=== PATIENT | female | born 1930 | race Caucasian/White ===

== ENCOUNTER 2019-06-04 13:13 | Inpatient (IN) | payer MEDICARE ==
[~2019-06-04] VITALS: Ht 162.6 cm; Wt 73.4 kg
[~2019-06-04 13:13] MED LIST: ACET325T9 PO; ALBU2.5V5 NEB; ALBU2.5V8 INH; ATOR10TA60 PO; CEPH-264 PO; DIVA125C3 PO; IPRA3AMP29 NEB; IPRA4AER INH; LACT1CAP21 PO; MAG355OR17 PO; MAGN24003 PO; METH29OI TP; OLAN5TAB5 PO; PRAV20TA2 PO; TRIA1CAP3 PO
[2019-06-04] MEDS ORDERED: TORS20TA2 PO (13:55)
[2019-06-04] MEDS ORDERED: TIOT18CA IH (13:55)
[2019-06-04] MEDS ORDERED: LIDO1ADH TP (13:55)
[2019-06-04] MEDS ORDERED: POLY17PO5 PO (13:55)
[2019-06-04] MEDS ORDERED: PRAV20TA2 PO (13:55)
[2019-06-04] MEDS ORDERED: ACET500T68 PO (13:55)
[2019-06-04 16:50] VITALS: BP 137/81
[2019-06-04] MEDS ORDERED: NON FORMULARY ITEM (Ipratropium/Albuterol Sulfate (Combivent Respimat Inhal) 1 PUFF) INH PRN (17:00)
[2019-06-04] MEDS ORDERED: METHYL SALICYLATE/MENTHOL TOPICAL OINTMENT 57GM TUBE. TP PRN (17:00)
[2019-06-04] MEDS ORDERED: ALBUTEROL SULFATE 2.5 MG/3 ML NEBU. INH PRN ×2 (17:00→17:13)
[2019-06-04] MEDS ORDERED: MAGNESIUM HYDROXIDE 2,400 MG/30 ML ORAL.SUSP. PO PRN (17:00)
[2019-06-04 20:15] LABS: BASO # 0.1 x10^3/uL (0.0-0.2); BASO % 1 % (0-3); EOS # 0.6 x10^3/uL (0.0-0.7); EOS % 6 % (0-3); HEMATOCRIT 38.3 % (36.0-47.0); HEMOGLOBIN 12.9 g/dL (12.0-15.5); LYMPH # 2.1 x10^3/uL (1.0-4.8); LYMPH % 20 % (24-48); MEAN CORPUSCULAR HEMOGLOBIN 32 pg (25-35); MEAN CORPUSCULAR HGB CONC 34 g/dL (31-37); MEAN CORPUSCULAR VOLUME 95 fL (79-100); MONO # 1.1 x10^3/uL (0.0-1.1); MONO % 10 % (0-9); NEUT # 6.9 x10^3uL (1.8-7.7); NEUT % 64 % (31-73); PLATELET COUNT 429 x10^3/uL (140-400); RED BLOOD COUNT 4.05 x10^6/uL (3.50-5.40); WHITE BLOOD COUNT 10.7 x10^3/uL (4.0-11.0)
[2019-06-04] MEDS: DIVALPROEX 125 MG CAP.SPRINK PO SCH (20:21)
[2019-06-04] MEDS: ATORVASTATIN CALCIUM 10 MG TABLET. PO SCH (20:21)
[2019-06-04] MEDS: ACETAMINOPHEN 500 MG TABLET PO PRN (20:22)
[2019-06-04 20:28] LABS: ALBUMIN 2.3 g/dL (3.4-5.0); ALBUMIN/GLOBULIN RATIO 0.5 (1.0-1.7); CREATININE 1.3 mg/dL (0.6-1.0); GFR 38.6; MAGNESIUM 2.2 mg/dL (1.8-2.4); POTASSIUM 4.1 mmol/L (3.5-5.1); TOTAL BILIRUBIN 0.2 mg/dL (0.2-1.0); TOTAL PROTEIN 7.2 g/dL (6.4-8.2)
[2019-06-04] MEDS: PATCH REMOVAL. MC SCH (21:00)
[2019-06-04] MEDS: IPRATRPIUM/ALBUTEROL 0.5/2.5MG 3 ML NEBU. NEB SCH (21:16)
--- NOTE | 2019-06-04 21:30 | PDOC ---
Exam Note: Zachary Note: Please also refer to the separate dictated note~for this date of service dictated separately. Discussed the patient with Nursing staff reviewed the chart.~Reviewed interim history and current functioning. Reviewed vital signs,~Labs/ Radiology~and current medications noted below. Continue current treatment with the changes noted in the dictated addendum note Assessment: Vital Signs/I&O: Vital Signs Date Time Temp Pulse Resp B/P (MAP) Pulse Ox O2 Delivery O2 Flow Rate FiO2 06/04/19 21:14 92 Room Air 06/04/19 16:50 97.8 93 18 137/81 (99) Labs: Laboratory Tests Test 06/04/19 20:05 White Blood Count 10.7 x10^3/uL (4.0-11.0) Red Blood Count 4.05 x10^6/uL (3.50-5.40) Hemoglobin 12.9 g/dL (12.0-15.5) Hematocrit 38.3 % (36.0-47.0) Mean Corpuscular Volume 95 fL (79-100) Mean Corpuscular Hemoglobin 32 pg (25-35) Mean Corpuscular Hemoglobin Concent 34 g/dL (31-37) Red Cell Distribution Width 14.0 % (11.5-14.5) Platelet Count 429 x10^3/uL (140-400) H Neutrophils (%) (Auto) 64 % (31-73) Lymphocytes (%) (Auto) 20 % (24-48) L Monocytes (%) (Auto) 10 % (0-9) H Eosinophils (%) (Auto) 6 % (0-3) H Basophils (%) (Auto) 1 % (0-3) Neutrophils # (Auto) 6.9 x10^3uL (1.8-7.7) Lymphocytes # (Auto) 2.1 x10^3/uL (1.0-4.8) Monocytes # (Auto) 1.1 x10^3/uL (0.0-1.1) Eosinophils # (Auto) 0.6 x10^3/uL (0.0-0.7) Basophils # (Auto) 0.1 x10^3/uL (0.0-0.2) Sodium Level 139 mmol/L (136-145) Potassium Level 4.1 mmol/L (3.5-5.1) Chloride Level 99 mmol/L (98-107) Carbon Dioxide Level 31 mmol/L (21-32) Anion Gap 9 (6-14) Blood Urea Nitrogen 45 mg/dL (7-20) H Creatinine 1.3 mg/dL (0.6-1.0) H Estimated GFR (Cockcroft-Gault) 38.6 BUN/Creatinine Ratio 35 (6-20) H Glucose Level 140 mg/dL (70-99) H Calcium Level 9.0 mg/dL (8.5-10.1) Magnesium Level 2.2 mg/dL (1.8-2.4) Total Bilirubin 0.2 mg/dL (0.2-1.0) Aspartate Amino Transferase (AST) 25 U/L (15-37) Alanine Aminotransferase (ALT) 29 U/L (14-59) Alkaline Phosphatase 119 U/L (46-116) H Total Protein 7.2 g/dL (6.4-8.2) Albumin 2.3 g/dL (3.4-5.0) L Albumin/Globulin Ratio 0.5 (1.0-1.7) L Current Medications: Meds: Current Medications Medications (Trade) Dose Ordered Sig/Daisy Route PRN Reason Start Time Stop Time Status Last Admin Dose Admin Acetaminophen (Tylenol) 500 mg PRN Q6HRS PRN PO MILD PAIN / TEMP 06/04/19 17:00 06/04/19 20:22 Divalproex Sodium (Depakote Sprinkles) 125 mg BID PO 06/04/19 21:00 06/04/19 20:21 Olanzapine (ZyPREXA ZYDIS) 5 mg HS PO 06/04/19 21:00 06/04/19 20:22 Atorvastatin Calcium (Lipitor) 5 mg QHS PO 06/04/19 21:00 06/04/19 20:21 Albuterol/ Ipratropium (Duoneb) 3 ml RTQID NEB 06/04/19 20:00 06/04/19 21:16 I have reviewed the current psychotropics carefully including drug interactions. Risk benefit ratio favors no change other than as noted in my dictated progress note. Diagnosis: Problems: (1) Bipolar 1 disorder, mixed, moderate (2) Anxiety disorder (3) Impulse control disorder ANDREA COY MD Jun 04, 2019 21:30
--- NOTE | 2019-06-04 23:42 | HP ---
ADMIT DATE: 06/04/2019 PSYCHIATRIC ADMISSION HISTORY AND EVALUATION IDENTIFYING DATA: The patient is an 89-year-old female referred to us from [facility] inpatient service [place] their [place] by her primary care physician, Dr. Stephany Perez and the hospitalist at [facility]. She had been living at home with her , was getting more agitated, paranoid that her was poisoning her. She was aggressive towards staff at the hospital while she was being medically stabilized. Behaviors were deemed dangerous, unmanageable. Psychiatric consult was completed at [facility], recommending inpatient psychiatric stabilization. CHIEF COMPLAINT: "I was here 14 years ago. I came here to heal everyone. The last time I came here, I healed everyone, that is my job, I like doing it." The patient was quite grandiose, paranoid, delusional. HISTORY OF PRESENT ILLNESS: The patient has a history of bipolar disorder with periods of elation, racing thoughts alternating with being depressed and marked psychotic symptoms even while she is stable with her mood swings. Recently, she has been increasingly paranoid living at home with her , agitated, believes her has been trying to poison her. She has had sleep and appetite changes. No active suicidal or homicidal ideation. She has had some short-term memory deficits. PAST PSYCHIATRIC HISTORY: Positive for bipolar disorder versus schizoaffective disorder, bipolar type, mild cognitive impairment. PAST MEDICAL HISTORY: Positive for hyperlipidemia, hypertension. PAST SURGICAL HISTORY: Total abdominal hysterectomy. CODE STATUS: Full code. ALLERGIES: BUDESONIDE, NOVOCAIN, PREDNISONE, SULFA. DIET: Pureed thin liquids. Takes medications whole. CURRENT PSYCHOTROPICS: Depakote 125 b.i.d., Zyprexa 5 mg at bedtime. FAMILY HISTORY: Noncontributory. SOCIAL HISTORY: No history of alcohol, drug abuse; physical, sexual or elder abuse. She is not known to be a perpetrator. REACTION TO HOSPITALIZATION: The patient accepting of it. ESTIMATED LENGTH OF STAY: 10-12 days. REVIEW OF SYSTEMS: Ambulation impaired. No CV, , pulmonary, eye system symptoms on review. MENTAL STATUS EXAMINATION: Oriented to herself and situation. She knew it was 06/04/2019, that the president was President Abbe, fairly oriented. Extremely delusional, hyperverbal at times. Attention span short. Language function intact. Mood and affect remains labile. LABORATORY DATA: Reviewed. IMPRESSION: Bipolar disorder, mixed with psychotic features versus schizoaffective disorder, bipolar type, mixed with psychotic features; anxiety disorder, unspecified; impulse control disorder, unspecified. Rest as above. PLAN: Admit to Geropsychiatry Unit, [facility]. I will see the patient daily individually from a psychiatric standpoint. Medical followup per Dr. Abdi. Continue the patient on Depakote 125 b.i.d. Check labs and a valproic acid level, adjust to reach therapeutic level. Continue Zyprexa 5 mg at bedtime. We will make further adjustments in her psychotropics post baseline assessment. Estimated length of stay 10-12 days. DISPOSITION PLANS: Back home with her when stable. MAN Carlos COY MD DR: ODALIS/cheyenne JOB#: [id number] / [id number]
[2019-06-05 05:15] VITALS: BP 147/101
[2019-06-05] MEDS: IPRATRPIUM/ALBUTEROL 0.5/2.5MG 3 ML NEBU. NEB SCH ×4 (08:00→23:29)
[2019-06-05] MEDS ORDERED: NON FORMULARY ITEM (Pravastatin Sodium 20 MG) PO SCH (09:00)
[2019-06-05] MEDS: POLYETHYLENE GLYCOL 3350 17 GM PACKET. PO SCH (09:00)
[2019-06-05] MEDS: LACTOBACILLUS RHAMNOSUS GG 1 CAPSULE. PO SCH (09:00)
[2019-06-05] MEDS: TORSEMIDE 20 MG TABLET. PO SCH (09:00)
[2019-06-05] MEDS ORDERED: NON FORMULARY ITEM (Tiotropium Bromide (Spiriva) 18 MCG) IH SCH (09:00)
[2019-06-05] MEDS: DIVALPROEX 125 MG CAP.SPRINK PO SCH ×2 (09:00→20:06)
[2019-06-05 12:07] LABS: THYROXINE 9.4 ug/dL (4.5-12.0)
[2019-06-05 12:52] LABS: BACTERIA,URINE MOD /HPF (0-FEW); BILIRUBIN,URINE NEG (NEG); CLARITY,URINE TURBID; COLOR,URINE YELLOW; GLUCOSE,URINE NEG (NEG); NITRITE,URINE POS (NEG); UROBILINOGEN,URINE 0.2 mg/dL (0.2 mg/dL); WBC,URINE TNTC /HPF (0-4)
[2019-06-05 14:37] LABS: THYROID STIM HORMONE (TSH) 1.397 uIU/mL (0.358-3.740)
[2019-06-05 16:28] VITALS: BP 132/79
[2019-06-05] MEDS: PATCH REMOVAL. MC SCH (20:06)
[2019-06-05] MEDS: ATORVASTATIN CALCIUM 10 MG TABLET. PO SCH (20:06)
--- NOTE | 2019-06-05 21:33 | PN ---
DATE: 06/05/2019 SUBJECTIVE: The patient was seen today, met with the staff, chart reviewed and also covering for Dr. Schofield. The patient continues to be delusional, paranoid, accusing her of poisoning her. The patient is withdrawn most of the time, tends to isolate herself, does not interact with the residents or staff. The patient also tends to be aggressive with the staff at times. OBSERVATION: VITAL SIGNS: Temperature 97.3, blood pressure 147/101, pulse 84, respirations 24, O2 sat 93%. GENERAL: Slept about 6 hours last night. The patient's appetite is fair. MEDICATIONS: The patient's medications reviewed and she is currently on olanzapine 5 mg at night, Depakote 125 mg b.i.d. The patient is not having any side effects to medications. The patient's appetite is fair. LABORATORY DATA: The patient's lab reviewed. The patient's platelet count was 429, BUN 45, creatinine 1.3, glucose 140, alkaline phosphatase 119. The patient is not having any other medical issues. ASSESSMENT: Bipolar disorder, mixed, with psychotic features; anxiety disorder, unspecified; impulse control disorder, unspecified. PLAN: Continue with the current treatment plan. LENGTH OF STAY: 7 days. GONSALO CANNON MD DR: REGINALD/cheyenne JOB#: [id number] / [id number]
[2019-06-06 00:07] LABS: HEMOGLOBIN A1C 5.7 % (4.8-5.6)
[2019-06-06 05:26] VITALS: BP 124/72
--- NOTE | 2019-06-06 05:54 | CONS ---
DATE OF CONSULTATION: 06/05/2019 REASON FOR CONSULTATION: Medical management. HISTORY OF PRESENT ILLNESS: The patient is an 89-year-old female patient lives at home with her , was seen at [facility] and was admitted to this facility for increased agitation, paranoid that is poisoning her. She is aggressive toward her spouse. She stated that she is getting soon to Usman Stafford and her name is Mary Stafford, all this in a background of bipolar disorder. PAST MEDICAL HISTORY: Significant for hypertension and hyperlipidemia. PAST SURGICAL HISTORY: Significant for total abdominal hysterectomy and squamous cell carcinoma removal. PAST PSYCHIATRIC HISTORY: Significant for bipolar disorder and dementia. ALLERGIES: SHE IS ALLERGIC TO SULFA, PULMICORT, PREDNISONE AND PROCAINE. MEDICATIONS: She is currently on following medications: She is on Combivent, Respimat inhaler 1 puff every 6 hours, tiotropium bromide for Spiriva HandiHaler 1 inhalation once a day, albuterol sulfate 1 puff 4 times a day, pravastatin sodium 20 mg daily, acetaminophen 500 mg every 6 hours, divalproex 125 mg twice a day, olanzapine 5 mg at bedtime, torsemide 20 mg daily, polyethylene glycol 17 grams daily, lactobacillus rhamnosus 1 capsule once a day, Lidopatch 1 patch applied topically daily p.r.n. for pain. FAMILY HISTORY: Unobtainable. SOCIAL HISTORY: She apparently lives with her . No further information available. PHYSICAL EXAMINATION: GENERAL: When I saw her, she was sitting comfortably in her chair, in no apparent respiratory distress. She was pale. No jaundice, cyanosis or thyromegaly. No jugular venous distention. No limb edema. VITAL SIGNS: Her heart rate was 84, blood pressure was 147/101, temperature was 97.3, respiratory rate was 22 and oxygen saturation was 93% on room air. HEAD, EYES, EARS, NOSE AND THROAT: Showed normocephalic, atraumatic. NECK: Supple. CARDIAC: Normal first and second heart sounds. No gallop or murmur. CHEST: Clear to auscultation. No crepitation or rhonchi. ABDOMEN: Distended, soft. NEUROLOGIC: She is demented without any obvious lateralizing signs. All her cranial nerves intact. EXTREMITIES: She moves extremities without difficulty, although she is mostly bedbound, chair bound. LABORATORY DATA: As of this morning showed her white cell count was 10,700, hemoglobin 13, hematocrit 38, MCV 95, and platelet count of 429,000 with normal manual differential. Serum sodium was 139, potassium 4.1, chloride 99, bicarbonate 31, anion gap of 9, BUN 45, creatinine 1.3, estimated GFR was 39 mL per minute. Her glucose 140, her calcium was 9, magnesium 2.2. Serum iron 44, TIBC was 232 and iron saturation was 19, serum bilirubin, AST, ALT were normal. Alkaline phosphatase slightly elevated. Total protein was 7.2, albumin 2.3. Serum triglycerides 125. Total cholesterol 145, LDL was 88, VLDL was 25, and HDL cholesterol was 32. The cholesterol to HDL ratio was 4. Her TSH, total T4, and total T3 are all within normal range. Her urinalysis showed the urine was yellow, turbid with a pH of 5.5, specific gravity 1.020. There was trace of protein, negative for glucose and ketones, small amount of blood, positive for nitrite and there was large amount of leukocyte esterase, 1-2 rbc's, too numerous to count wbc's and moderate amount of bacteria. ASSESSMENT AND PLAN: All in all, this is an 89-year-old female patient who was admitted on account of being agitated, paranoid that her is poisoning her, aggressive towards her spouse. Medically, she seemed to be stable. She has hypertension, hyperlipidemia, chronic kidney disease and probably UTI. Her vital signs seem to be stable. Her lab works are also within acceptable range. My plan is to follow all the lab work, still pending at the time of this dictation and make any necessary recommendation. Thank you, Dr. Schofield for allowing me to participate in the care of this patient. KAYE ROBLES MD DR: LIANA/cheyenne JOB#: [id number] / [id number]
[2019-06-06] MEDS: IPRATRPIUM/ALBUTEROL 0.5/2.5MG 3 ML NEBU. NEB SCH ×4 (06:20→23:00)
[2019-06-06] MEDS: POLYETHYLENE GLYCOL 3350 17 GM PACKET. PO SCH (09:48)
[2019-06-06] MEDS: LACTOBACILLUS RHAMNOSUS GG 1 CAPSULE. PO SCH (09:48)
[2019-06-06] MEDS: DIVALPROEX 125 MG CAP.SPRINK PO SCH ×2 (09:48→19:56)
[2019-06-06] MEDS: TORSEMIDE 20 MG TABLET. PO SCH (09:48)
[2019-06-06 15:38] VITALS: BP 122/76
[2019-06-06 16:26] LABS: HEMATOCRIT 38.6 % (36.0-47.0); HEMOGLOBIN 12.6 g/dL (12.0-15.5); RED BLOOD COUNT 4.04 x10^6/uL (3.50-5.40); RED CELL DISTRIBUTION WIDTH 13.8 % (11.5-14.5); WHITE BLOOD COUNT 8.8 x10^3/uL (4.0-11.0)
[2019-06-06 16:34] LABS: CALCIUM 8.5 mg/dL (8.5-10.1); CREATININE 1.4 mg/dL (0.6-1.0); GFR 35.4; POTASSIUM 3.8 mmol/L (3.5-5.1)
[2019-06-06 16:46] LABS: ALBUMIN 2.3 g/dL (3.4-5.0); ALBUMIN/GLOBULIN RATIO 0.5 (1.0-1.7); TOTAL BILIRUBIN 0.2 mg/dL (0.2-1.0); TOTAL PROTEIN 6.8 g/dL (6.4-8.2)
--- NOTE | 2019-06-06 17:28 | RAD ---
CHEST AP ONLY History: Worsening shortness of breath Comparison: None. Findings: No consolidation or pleural effusion. Normal heart size. No pneumothorax. Impression: 1. No acute cardiopulmonary process. Electronically signed by: David Dozier DO (06/06/2019 5:24 PM) [id number]
[2019-06-06] MEDS: ATORVASTATIN CALCIUM 10 MG TABLET. PO SCH (19:56)
[2019-06-06] MEDS: MAG HYDROX/AL HYDROX/SIMETH 30 ML ORAL.SUSP PO PRN (19:57)
[2019-06-06] MEDS: PATCH REMOVAL. MC SCH (20:53)
--- NOTE | 2019-06-06 23:19 | PN ---
DATE: 06/06/2019 SUBJECTIVE: The patient was seen today, met with the staff, chart reviewed and also covering for Dr. Schofield. The patient is still delusional, paranoid. The patient claims that she is Usman flynn. 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 OBSERVATION: VITAL SIGNS: Temperature 97.9, blood pressure 124/72, pulse 82, respirations 18, O2 sat 90%. GENERAL: Slept about 7 hours last night. The patient is not having any physical complaints. CURRENT MEDICATIONS: Include olanzapine 5 mg at night, Depakote 125 mg b.i.d. The patient denies of any side effects. The patient's appetite improved. The patient is not having any physical complaints. ASSESSMENT: 1. Bipolar disorder, mixed, with psychotic features. 2. Anxiety disorder, unspecified. 3. Impulse control disorder, unspecified. PLAN: To continue with the treatment. LENGTH OF STAY: 7 days. GONSALO CANNON MD DR: REGINALD/cheyenne JOB#: [id number] / [id number]
[2019-06-07 05:59] VITALS: BP 112/68
[2019-06-07] MEDS: IPRATRPIUM/ALBUTEROL 0.5/2.5MG 3 ML NEBU. NEB SCH ×3 (06:10→16:39)
--- NOTE | 2019-06-07 06:41 | EKG ---
[address] [address] Test Date: 2019-06-04 Test Time: 21:13:59 Pat Name: WHITNEY EDWARDS Department: Room: [address] [place] [address] Gender: Child And Youth Program Assistant: : 1930 Requested By: ANDREA COY Order Number: [id number] Reading MD: Brock Parish Measurements Intervals [place] Rate: P: GA: QRS: QRSD: T: QT: QTc: Interpretive Statements No previous ECG available for comparison Electronically Signed On 06-21-2019 9:25:40 CDT by Brock Parish
[2019-06-07] MEDS: LACTOBACILLUS RHAMNOSUS GG 1 CAPSULE. PO SCH (08:42)
[2019-06-07] MEDS: DIVALPROEX 125 MG CAP.SPRINK PO SCH ×2 (08:43→20:39)
[2019-06-07] MEDS: POLYETHYLENE GLYCOL 3350 17 GM PACKET. PO SCH (08:43)
[2019-06-07] MEDS: TORSEMIDE 20 MG TABLET. PO SCH (08:43)
[2019-06-07 16:36] VITALS: BP 118/58
[2019-06-07] MEDS: ACETAMINOPHEN 500 MG TABLET PO PRN (17:04)
[2019-06-07] MEDS: PATCH REMOVAL. MC SCH (20:39)
[2019-06-07] MEDS: ATORVASTATIN CALCIUM 10 MG TABLET. PO SCH (20:39)
--- NOTE | 2019-06-07 21:53 | PDOC ---
Exam Note: Zachary Note: Please also refer to the separate dictated note~for this date of service dictated separately.~Patient seen individually. Discussed the patient with Nursing staff reviewed the chart.~Reviewed interim history and current functioning. Reviewed vital signs,~Labs/ Radiology~and current medications noted below. Continue current treatment with the changes noted in the dictated addendum note Assessment: Vital Signs/I&O: Vital Signs Date Time Temp Pulse Resp B/P (MAP) Pulse Ox O2 Delivery O2 Flow Rate FiO2 06/07/19 20:50 92 Room Air 06/07/19 16:36 98.3 90 16 118/58 (78) I & O 06/06/19 06/06/19 06/07/19 15:00 23:00 07:00 Intake Total 120 ml 240 ml 120 ml Balance 120 ml 240 ml 120 ml Current Medications: I have reviewed the current psychotropics carefully including drug interactions. Risk benefit ratio favors no change other than as noted in my dictated progress note. Diagnosis: Problems: (1) Bipolar 1 disorder, mixed, moderate (2) Anxiety disorder (3) Impulse control disorder (4) Schizoaffective disorder, bipolar type ANDREA COY MD Jun 07, 2019 21:53
[2019-06-08] MEDS: ACETAMINOPHEN 500 MG TABLET PO PRN ×2 (00:49→20:23)
[2019-06-08] MEDS: IPRATRPIUM/ALBUTEROL 0.5/2.5MG 3 ML NEBU. NEB SCH ×5 (03:39→21:28)
[2019-06-08 05:51] VITALS: BP 102/62
[2019-06-08 06:31] LABS: BASO % 1 % (0-3); EOS # 0.8 x10^3/uL (0.0-0.7); EOS % 10 % (0-3); HEMATOCRIT 32.8 % (36.0-47.0); HEMOGLOBIN 10.8 g/dL (12.0-15.5); LYMPH # 2.2 x10^3/uL (1.0-4.8); LYMPH % 27 % (24-48); MEAN CORPUSCULAR HEMOGLOBIN 31 pg (25-35); MEAN CORPUSCULAR HGB CONC 33 g/dL (31-37); MEAN CORPUSCULAR VOLUME 94 fL (79-100); MONO # 0.9 x10^3/uL (0.0-1.1); MONO % 11 % (0-9); NEUT # 4.2 x10^3uL (1.8-7.7); NEUT % 52 % (31-73); PLATELET COUNT 378 x10^3/uL (140-400); RED BLOOD COUNT 3.48 x10^6/uL (3.50-5.40); RED CELL DISTRIBUTION WIDTH 14.3 % (11.5-14.5); WHITE BLOOD COUNT 8.1 x10^3/uL (4.0-11.0)
[2019-06-08 06:44] LABS: ALBUMIN/GLOBULIN RATIO 0.5 (1.0-1.7); ALK PHOS 86 U/L (46-116); ALT (SGPT) 21 U/L (14-59); ANION GAP 6 (6-14); AST (SGOT) 18 U/L (15-37); BLOOD UREA NITROGEN 45 mg/dL (7-20); BUN/CREATININE RATIO 32 (6-20); CALCIUM 8.3 mg/dL (8.5-10.1); CARBON DIOXIDE 33 mmol/L (21-32); CHLORIDE 102 mmol/L (98-107); CREATININE 1.4 mg/dL (0.6-1.0); GFR 35.4; GLUCOSE 91 mg/dL (70-99); POTASSIUM 3.5 mmol/L (3.5-5.1); SODIUM 141 mmol/L (136-145); TOTAL BILIRUBIN 0.2 mg/dL (0.2-1.0); TOTAL PROTEIN 5.8 g/dL (6.4-8.2)
[2019-06-08 06:46] LABS: VAL ACID 31 mcg/mL (50-100)
[2019-06-08] MEDS: POLYETHYLENE GLYCOL 3350 17 GM PACKET. PO SCH (11:45)
[2019-06-08] MEDS: LACTOBACILLUS RHAMNOSUS GG 1 CAPSULE. PO SCH (11:46)
[2019-06-08] MEDS: TORSEMIDE 20 MG TABLET. PO SCH (11:46)
[2019-06-08] MEDS: DIVALPROEX 125 MG CAP.SPRINK PO SCH ×2 (11:46→19:59)
[2019-06-08] MEDS: MAG HYDROX/AL HYDROX/SIMETH 30 ML ORAL.SUSP PO PRN (11:57)
[2019-06-08] MEDS: CEPHALEXIN 250 MG CAPSULE PO SCH ×2 (15:17→19:59)
[2019-06-08 16:02] VITALS: BP 109/60
[2019-06-08] MEDS: ATORVASTATIN CALCIUM 10 MG TABLET. PO SCH (19:59)
[2019-06-08] MEDS: PATCH REMOVAL. MC SCH (20:00)
--- NOTE | 2019-06-08 21:45 | PDOC ---
Exam Note: Zachary Note: Please also refer to the separate dictated note~for this date of service dictated separately.~Patient seen individually. Discussed the patient with Nursing staff reviewed the chart.~Reviewed interim history and current functioning. Reviewed vital signs,~Labs/ Radiology~and current medications noted below. Continue current treatment with the changes noted in the dictated addendum note Assessment: Vital Signs/I&O: Vital Signs Date Time Temp Pulse Resp B/P (MAP) Pulse Ox O2 Delivery O2 Flow Rate FiO2 06/08/19 21:29 92 Room Air 06/08/19 16:02 97.8 79 16 109/60 (76) I & O 06/07/19 06/07/19 06/08/19 15:00 23:00 07:00 Intake Total 720 ml 340 ml Balance 720 ml 340 ml Labs: Laboratory Tests Test 06/08/19 05:56 White Blood Count 8.1 x10^3/uL (4.0-11.0) Red Blood Count 3.48 x10^6/uL (3.50-5.40) L Hemoglobin 10.8 g/dL (12.0-15.5) L Hematocrit 32.8 % (36.0-47.0) L Mean Corpuscular Volume 94 fL (79-100) Mean Corpuscular Hemoglobin 31 pg (25-35) Mean Corpuscular Hemoglobin Concent 33 g/dL (31-37) Red Cell Distribution Width 14.3 % (11.5-14.5) Platelet Count 378 x10^3/uL (140-400) Neutrophils (%) (Auto) 52 % (31-73) Lymphocytes (%) (Auto) 27 % (24-48) Monocytes (%) (Auto) 11 % (0-9) H Eosinophils (%) (Auto) 10 % (0-3) H Basophils (%) (Auto) 1 % (0-3) Neutrophils # (Auto) 4.2 x10^3uL (1.8-7.7) Lymphocytes # (Auto) 2.2 x10^3/uL (1.0-4.8) Monocytes # (Auto) 0.9 x10^3/uL (0.0-1.1) Eosinophils # (Auto) 0.8 x10^3/uL (0.0-0.7) H Basophils # (Auto) 0.0 x10^3/uL (0.0-0.2) Sodium Level 141 mmol/L (136-145) Potassium Level 3.5 mmol/L (3.5-5.1) Chloride Level 102 mmol/L (98-107) Carbon Dioxide Level 33 mmol/L (21-32) H Anion Gap 6 (6-14) Blood Urea Nitrogen 45 mg/dL (7-20) H Creatinine 1.4 mg/dL (0.6-1.0) H Estimated GFR (Cockcroft-Gault) 35.4 BUN/Creatinine Ratio 32 (6-20) H Glucose Level 91 mg/dL (70-99) Calcium Level 8.3 mg/dL (8.5-10.1) L Total Bilirubin 0.2 mg/dL (0.2-1.0) Aspartate Amino Transferase (AST) 18 U/L (15-37) Alanine Aminotransferase (ALT) 21 U/L (14-59) Alkaline Phosphatase 86 U/L (46-116) Total Protein 5.8 g/dL (6.4-8.2) L Albumin 2.0 g/dL (3.4-5.0) L Albumin/Globulin Ratio 0.5 (1.0-1.7) L Valproic Acid Level 31 mcg/mL (50-100) L Valproic Acid Last Dose Date 06/07/2019 Valproic Acid Last Dose Time 2100 Current Medications: Meds: Current Medications Medications (Trade) Dose Ordered Sig/Daisy Route PRN Reason Start Time Stop Time Status Last Admin Dose Admin Cephalexin HCl (Keflex) 250 mg TID PO 06/08/19 14:00 06/13/19 13:59 06/08/19 19:59 Divalproex Sodium (Depakote Sprinkles) 250 mg BID PO 06/08/19 21:00 06/08/19 19:59 I have reviewed the current psychotropics carefully including drug interactions. Risk benefit ratio favors no change other than as noted in my dictated progress note. Diagnosis: Problems: (1) Schizoaffective disorder, bipolar type (2) Bipolar 1 disorder, mixed, moderate (3) Anxiety disorder (4) Impulse control disorder ANDREA COY MD Jun 08, 2019 21:45
[2019-06-09] MEDS: IPRATRPIUM/ALBUTEROL 0.5/2.5MG 3 ML NEBU. NEB SCH ×4 (04:56→20:41)
[2019-06-09] MEDS: ACETAMINOPHEN 500 MG TABLET PO PRN ×2 (05:48→19:50)
[2019-06-09 05:52] VITALS: BP 111/63
--- NOTE | 2019-06-09 09:30 | PN ---
DATE: 06/07/2019 This late entry 06/07/2019 covers elements not covered in my initial note. SUBJECTIVE: I met with the patient evening of 06/07/2019. Overall, per nursing report, the patient remains quite psychotic, delusional. She believes she is engaged to be to Usman Santoro, the football player with the [employer] football team. She has been anxious, restless, refuses to keep her arm band in place. She is restless. We will check her labs including valproic acid level repeat morning of 06/08/2019, but the current valproic acid level is 31, subtherapeutic, on Depakote 125 b.i.d. REVIEW OF SYSTEMS: Ambulation impaired, no CV, , pulmonary, eye system symptoms on review. MENTAL STATUS EXAM: Oriented to herself and situation. Speech is coherent, has some latency. Abstraction fair, computation impaired, language function intact, attention span short. Mood and affect remains labile. LABORATORY DATA: Reviewed. IMPRESSION: Bipolar disorder, mixed with psychotic features. Rest unchanged, mild cognitive impairment. PLAN: Increase the Depakote to 250 mg twice a day. Check CBC, CMP, valproic acid level, ammonia level in 3 days. Await results of the urine culture and sensitivity treat if positive, continue rest of her psychotropics unchanged. I have reviewed information with Dr. Quinones, who covered for me over the past couple of days. MAN Carlos COY MD DR: ODALIS/cheyenne JOB#: [id number] / [id number]
[2019-06-09] MEDS: CEPHALEXIN 250 MG CAPSULE PO SCH ×3 (11:10→19:50)
[2019-06-09] MEDS: TORSEMIDE 20 MG TABLET. PO SCH (11:10)
[2019-06-09] MEDS: DIVALPROEX 125 MG CAP.SPRINK PO SCH ×2 (11:10→19:50)
[2019-06-09] MEDS: LACTOBACILLUS RHAMNOSUS GG 1 CAPSULE. PO SCH (11:10)
[2019-06-09] MEDS: POLYETHYLENE GLYCOL 3350 17 GM PACKET. PO SCH (11:10)
[2019-06-09 16:38] VITALS: BP 129/81
[2019-06-09] MEDS: ATORVASTATIN CALCIUM 10 MG TABLET. PO SCH (19:50)
--- NOTE | 2019-06-09 19:53 | PN ---
DATE: 06/08/2019 PSYCHIATRIC PROGRESS NOTE This late entry 06/08/2019 covers elements not covered in my initial note. SUBJECTIVE: I met with the patient evening of 06/08/2019. Per STACIE العراقي, the patient slept 4-3/4 hours previous night. She does have a UTI, started on Keflex for 5 days. She seems to hate pureed food. Gets agitated, complains of some nausea. Valproic acid level is 31 on Depakote 125 b.i.d. and we will increase it to 250 b.i.d. Check CBC, CMP, valproic acid level, ammonia level in 3 days with a plan to reach a level between 50 and 100. REVIEW OF SYSTEMS: Ambulation impaired, in wheelchair. No CV, , pulmonary, eye system symptoms on review, does complain of some tiredness. MENTAL STATUS EXAM: Oriented to herself and situation. Speech has some latency, coherent. Abstraction fair, computation impaired, language function intact, attention span short. Mood and affect withdrawn. LABORATORY DATA: Reviewed. IMPRESSION: Unchanged from initial note. PLAN: No change from initial note. MAN Carlos COY MD DR: ODALIS/cheyenne JOB#: [id number] / [id number]
[2019-06-09] MEDS: PATCH REMOVAL. MC SCH (19:54)
--- NOTE | 2019-06-09 22:06 | PDOC ---
Exam Note: Zachary Note: Please also refer to the separate dictated note~for this date of service dictated separately.~Patient seen individually. Discussed the patient with Nursing staff reviewed the chart.~Reviewed interim history and current functioning. Reviewed vital signs,~Labs/ Radiology~and current medications noted below. Continue current treatment with the changes noted in the dictated addendum note Assessment: Vital Signs/I&O: Vital Signs Date Time Temp Pulse Resp B/P (MAP) Pulse Ox O2 Delivery O2 Flow Rate FiO2 06/09/19 16:38 98.3 88 20 129/81 (97) 93 06/09/19 15:59 Room Air I & O 06/08/19 06/08/19 06/09/19 15:00 23:00 07:00 Intake Total 480 ml 360 ml Balance 480 ml 360 ml Current Medications: I have reviewed the current psychotropics carefully including drug interactions. Risk benefit ratio favors no change other than as noted in my dictated progress note. Diagnosis: Problems: (1) Schizoaffective disorder, bipolar type (2) Bipolar 1 disorder, mixed, moderate (3) Anxiety disorder (4) Impulse control disorder ANDREA COY MD Jun 09, 2019 22:06
[2019-06-10] MEDS: IPRATRPIUM/ALBUTEROL 0.5/2.5MG 3 ML NEBU. NEB SCH ×4 (05:01→21:14)
[2019-06-10 05:53] VITALS: BP 106/63
[2019-06-10] MEDS: CEPHALEXIN 250 MG CAPSULE PO SCH ×3 (08:57→19:50)
[2019-06-10] MEDS: POLYETHYLENE GLYCOL 3350 17 GM PACKET. PO SCH (08:57)
[2019-06-10] MEDS: TORSEMIDE 20 MG TABLET. PO SCH (08:57)
[2019-06-10] MEDS: DIVALPROEX 125 MG CAP.SPRINK PO SCH ×2 (08:57→19:51)
[2019-06-10] MEDS: LACTOBACILLUS RHAMNOSUS GG 1 CAPSULE. PO SCH (08:57)
[2019-06-10] MEDS: MAG HYDROX/AL HYDROX/SIMETH 30 ML ORAL.SUSP PO PRN (09:16)
[2019-06-10] MEDS: ACETAMINOPHEN 500 MG TABLET PO PRN ×2 (09:16→19:51)
[2019-06-10 16:02] VITALS: BP 121/76
[2019-06-10] MEDS ORDERED: ONDANSETRON ODT 4 MG TAB.RAPDIS PO PRN (18:15)
[2019-06-10] MEDS: ATORVASTATIN CALCIUM 10 MG TABLET. PO SCH (19:51)
[2019-06-10] MEDS: PATCH REMOVAL. MC SCH (19:51)
[2019-06-10] MEDS: risperiDONE 0.5 MG TABLET. PO SCH (21:00)
--- NOTE | 2019-06-10 23:04 | PDOC ---
Exam Note: Zachary Note: Please also refer to the separate dictated note~for this date of service dictated separately.~Patient seen individually. Discussed the patient with Nursing staff reviewed the chart.~Reviewed interim history and current functioning. Reviewed vital signs,~Labs/ Radiology~and current medications noted below. Continue current treatment with the changes noted in the dictated addendum note Assessment: Vital Signs/I&O: Vital Signs Date Time Temp Pulse Resp B/P (MAP) Pulse Ox O2 Delivery O2 Flow Rate FiO2 06/10/19 16:09 92 Room Air 06/10/19 16:02 98.7 82 18 121/76 (91) I & O 06/09/19 06/09/19 06/10/19 15:00 23:00 07:00 Intake Total 240 ml 600 ml Balance 240 ml 600 ml Current Medications: I have reviewed the current psychotropics carefully including drug interactions. Risk benefit ratio favors no change other than as noted in my dictated progress note. Diagnosis: Problems: (1) Schizoaffective disorder, bipolar type (2) Bipolar 1 disorder, mixed, moderate (3) Anxiety disorder (4) Impulse control disorder ANDREA COY MD Jun 10, 2019 23:04
[2019-06-11] MEDS: IPRATRPIUM/ALBUTEROL 0.5/2.5MG 3 ML NEBU. NEB SCH ×5 (04:59→22:45)
[2019-06-11 06:27] VITALS: BP 128/75
[2019-06-11] MEDS: LACTOBACILLUS RHAMNOSUS GG 1 CAPSULE. PO SCH (08:13)
[2019-06-11] MEDS: TORSEMIDE 20 MG TABLET. PO SCH (08:13)
[2019-06-11] MEDS: CEPHALEXIN 250 MG CAPSULE PO SCH ×3 (08:13→21:06)
[2019-06-11] MEDS: DIVALPROEX 125 MG CAP.SPRINK PO SCH ×2 (08:13→21:06)
[2019-06-11] MEDS: POLYETHYLENE GLYCOL 3350 17 GM PACKET. PO SCH (08:13)
[2019-06-11] MEDS: ACETAMINOPHEN 500 MG TABLET PO PRN ×3 (08:44→22:35)
--- NOTE | 2019-06-11 10:42 | PN ---
DATE: 06/10/2019 This late entry 06/10/2019 covers elements not covered in my initial note. SUBJECTIVE: I met with the patient in evening of 06/10/2019 and staffed at a treatment team meeting with the entire team in the morning. The patient's , Dequan attended the treatment team meeting. Per STACIE العراقي, the patient is sleeping 6 hours average, slept 8 hours previous night. Appetite is 50%. She complains of some GI symptoms. She remains somewhat delusional at times. She states she was at [facility], which is accurate and that she has been playing football. REVIEW OF SYSTEMS: Ambulation impaired in wheelchair. No CV, , pulmonary, eye system symptoms on review. MENTAL STATUS EXAM: Oriented to herself and situation. Speech has some latency, coherent, often responses monosyllabic. Abstraction fair, computation impaired, language function intact. Mood and affect withdrawn. LABORATORY DATA: Reviewed. IMPRESSION: Bipolar disorder, mixed with psychotic features; anxiety disorder, unspecified; mild cognitive impairment. Rest unchanged. PLAN: We will go ahead and change the Zyprexa 5 mg at bedtime to Risperdal 0.5 mg at bedtime. Maintain Depakote 250 mg b.i.d. Repeat labs and valproic acid level, adjust to reach therapeutic level. At times, she remains intermittently psychotic. As I met with her in the evening, talking about not being , having no children that her legs are broken because she was playing football and the Usman Esmer, the football player was going to heal her legs. Change the Zyprexa to Risperdal. Make further changes as clinically indicated. Continue Depakote. MAN Carlos COY MD DR: ODALIS/cheyenne JOB#: [id number] / [id number]
--- NOTE | 2019-06-11 10:55 | PN ---
DATE: 06/09/2019 PSYCHIATRIC PROGRESS NOTE This late entry 06/09/2019 covers elements not covered in my initial note. SUBJECTIVE: I met with the patient evening of 06/09/2019. Per STACIE العراقي, the patient has had some episodes of crying. She has been attending groups, remains delusional, paranoid, believes people are making forcing her to drink gasoline at breakfast, but she has not been delusional about a relationship with the football player, Claudia Barr. She slept 5-1/2 hours previous night. REVIEW OF SYSTEMS: Ambulation impaired, in wheelchair. No CV, , pulmonary, eye system symptoms on review. MENTAL STATUS EXAM: Oriented to herself and situation. Speech is coherent, has some latency. Abstraction fair, computation impaired, language function intact, attention span short. Mood and affect somewhat withdrawn. LABORATORY DATA: Reviewed. IMPRESSION: Unchanged from initial note. PLAN: No change from initial note. ANDREA COY MD DR: ODALIS/cheyenne JOB#: [id number] / [id number]
[2019-06-11 16:34] VITALS: BP 123/80
[2019-06-11] MEDS: PATCH REMOVAL. MC SCH (21:00)
[2019-06-11] MEDS: risperiDONE 0.5 MG TABLET. PO SCH (21:07)
[2019-06-11] MEDS: ATORVASTATIN CALCIUM 10 MG TABLET. PO SCH (21:07)
--- NOTE | 2019-06-11 23:01 | PDOC ---
Exam Note: Zachary Note: Please also refer to the separate dictated note~for this date of service dictated separately. Discussed the patient with Nursing staff reviewed the chart.~Reviewed interim history and current functioning. Reviewed vital signs,~Labs/ Radiology~and current medications noted below. Continue current treatment with the changes noted in the dictated addendum note Assessment: Vital Signs/I&O: Vital Signs Date Time Temp Pulse Resp B/P (MAP) Pulse Ox O2 Delivery O2 Flow Rate FiO2 06/11/19 16:34 95 Room Air 06/11/19 16:34 97.7 81 18 123/80 (94) I & O 06/10/19 06/10/19 06/11/19 15:00 23:00 07:00 Intake Total 870 ml 840 ml Balance 870 ml 840 ml Current Medications: I have reviewed the current psychotropics carefully including drug interactions. Risk benefit ratio favors no change other than as noted in my dictated progress note. Diagnosis: Problems: (1) Schizoaffective disorder, bipolar type (2) Bipolar 1 disorder, mixed, moderate (3) Anxiety disorder (4) Impulse control disorder ANDREA COY MD Jun 11, 2019 23:01
[2019-06-12 06:56] VITALS: BP 120/68
[2019-06-12] MEDS: IPRATRPIUM/ALBUTEROL 0.5/2.5MG 3 ML NEBU. NEB SCH ×4 (08:00→20:13)
[2019-06-12] MEDS: LACTOBACILLUS RHAMNOSUS GG 1 CAPSULE. PO SCH (09:34)
[2019-06-12] MEDS: CEPHALEXIN 250 MG CAPSULE PO SCH ×3 (09:35→20:14)
[2019-06-12] MEDS: POLYETHYLENE GLYCOL 3350 17 GM PACKET. PO SCH (09:35)
[2019-06-12] MEDS: TORSEMIDE 20 MG TABLET. PO SCH (09:35)
[2019-06-12] MEDS: DIVALPROEX 125 MG CAP.SPRINK PO SCH ×2 (09:35→20:14)
[2019-06-12 10:36] LABS: BASO % 1 % (0-3); EOS # 0.6 x10^3/uL (0.0-0.7); EOS % 9 % (0-3); HEMATOCRIT 37.4 % (36.0-47.0); HEMOGLOBIN 12.3 g/dL (12.0-15.5); LYMPH # 1.2 x10^3/uL (1.0-4.8); LYMPH % 17 % (24-48); MEAN CORPUSCULAR HEMOGLOBIN 32 pg (25-35); MEAN CORPUSCULAR HGB CONC 33 g/dL (31-37); MEAN CORPUSCULAR VOLUME 96 fL (79-100); MONO # 0.5 x10^3/uL (0.0-1.1); MONO % 8 % (0-9); NEUT # 4.3 x10^3uL (1.8-7.7); NEUT % 65 % (31-73); PLATELET COUNT 308 x10^3/uL (140-400); RED BLOOD COUNT 3.89 x10^6/uL (3.50-5.40); RED CELL DISTRIBUTION WIDTH 14.1 % (11.5-14.5); WHITE BLOOD COUNT 6.7 x10^3/uL (4.0-11.0)
[2019-06-12 10:51] LABS: ALBUMIN 2.2 g/dL (3.4-5.0); ALBUMIN/GLOBULIN RATIO 0.5 (1.0-1.7); ALK PHOS 88 U/L (46-116); ALT (SGPT) 16 U/L (14-59); ANION GAP 4 (6-14); AST (SGOT) 16 U/L (15-37); BLOOD UREA NITROGEN 30 mg/dL (7-20); BUN/CREATININE RATIO 21 (6-20); CALCIUM 8.2 mg/dL (8.5-10.1); CARBON DIOXIDE 35 mmol/L (21-32); CHLORIDE 102 mmol/L (98-107); CREATININE 1.4 mg/dL (0.6-1.0); GFR 35.4; GLUCOSE 111 mg/dL (70-99); POTASSIUM 3.3 mmol/L (3.5-5.1); SODIUM 141 mmol/L (136-145); TOTAL BILIRUBIN 0.2 mg/dL (0.2-1.0); TOTAL PROTEIN 6.3 g/dL (6.4-8.2); VAL ACID 44 mcg/mL (50-100)
[2019-06-12] MEDS ORDERED: POTASSIUM CHLORIDE 20 MEQ TABLET.ER. PO ONE (11:30)
[2019-06-12 16:08] VITALS: BP 116/76
[2019-06-12] MEDS: risperiDONE 0.5 MG TABLET. PO SCH (20:14)
[2019-06-12] MEDS: ATORVASTATIN CALCIUM 10 MG TABLET. PO SCH (20:15)
[2019-06-12] MEDS: HYDROcodone/APAP 5/325MG 1 TAB TABLET PO PRN (20:15)
[2019-06-12] MEDS: PATCH REMOVAL. MC SCH (20:19)
--- NOTE | 2019-06-12 22:44 | PDOC ---
Exam Note: Zachary Note: Please also refer to the separate dictated note~for this date of service dictated separately. Discussed the patient with Nursing staff reviewed the chart.~Reviewed interim history and current functioning. Reviewed vital signs,~Labs/ Radiology~and current medications noted below. Continue current treatment with the changes noted in the dictated addendum note Assessment: Vital Signs/I&O: Vital Signs Date Time Temp Pulse Resp B/P (MAP) Pulse Ox O2 Delivery O2 Flow Rate FiO2 06/12/19 16:08 98.3 82 18 116/76 (89) 92 06/11/19 16:34 Room Air I & O 06/11/19 06/11/19 06/12/19 15:00 23:00 07:00 Intake Total 1200 ml 240 ml 120 ml Balance 1200 ml 240 ml 120 ml Labs: Laboratory Tests Test 06/12/19 10:10 White Blood Count 6.7 x10^3/uL (4.0-11.0) Red Blood Count 3.89 x10^6/uL (3.50-5.40) Hemoglobin 12.3 g/dL (12.0-15.5) Hematocrit 37.4 % (36.0-47.0) Mean Corpuscular Volume 96 fL (79-100) Mean Corpuscular Hemoglobin 32 pg (25-35) Mean Corpuscular Hemoglobin Concent 33 g/dL (31-37) Red Cell Distribution Width 14.1 % (11.5-14.5) Platelet Count 308 x10^3/uL (140-400) Neutrophils (%) (Auto) 65 % (31-73) Lymphocytes (%) (Auto) 17 % (24-48) L Monocytes (%) (Auto) 8 % (0-9) Eosinophils (%) (Auto) 9 % (0-3) H Basophils (%) (Auto) 1 % (0-3) Neutrophils # (Auto) 4.3 x10^3uL (1.8-7.7) Lymphocytes # (Auto) 1.2 x10^3/uL (1.0-4.8) Monocytes # (Auto) 0.5 x10^3/uL (0.0-1.1) Eosinophils # (Auto) 0.6 x10^3/uL (0.0-0.7) Basophils # (Auto) 0.0 x10^3/uL (0.0-0.2) Sodium Level 141 mmol/L (136-145) Potassium Level 3.3 mmol/L (3.5-5.1) L Chloride Level 102 mmol/L (98-107) Carbon Dioxide Level 35 mmol/L (21-32) H Anion Gap 4 (6-14) L Blood Urea Nitrogen 30 mg/dL (7-20) H Creatinine 1.4 mg/dL (0.6-1.0) H Estimated GFR (Cockcroft-Gault) 35.4 BUN/Creatinine Ratio 21 (6-20) H Glucose Level 111 mg/dL (70-99) H Calcium Level 8.2 mg/dL (8.5-10.1) L Total Bilirubin 0.2 mg/dL (0.2-1.0) Aspartate Amino Transferase (AST) 16 U/L (15-37) Alanine Aminotransferase (ALT) 16 U/L (14-59) Alkaline Phosphatase 88 U/L (46-116) Ammonia < 10 mcmol/L (11-34) L Total Protein 6.3 g/dL (6.4-8.2) L Albumin 2.2 g/dL (3.4-5.0) L Albumin/Globulin Ratio 0.5 (1.0-1.7) L Valproic Acid Level 44 mcg/mL (50-100) L Valproic Acid Last Dose Date 06/11/19 Valproic Acid Last Dose Time 2100 Current Medications: Meds: Current Medications Medications (Trade) Dose Ordered Sig/Daisy Route PRN Reason Start Time Stop Time Status Last Admin Dose Admin Potassium Chloride (Klor-Con) 40 meq 1X ONCE PO 06/12/19 11:30 06/12/19 11:31 DC 06/12/19 14:32 Acetaminophen/ Hydrocodone Bitart (Lortab 5/325) 1 tab PRN Q6HRS PRN PO PAIN 06/12/19 16:00 06/12/19 20:15 Divalproex Sodium (Depakote Sprinkles) 500 mg HS PO 06/12/19 21:00 06/12/19 20:14 I have reviewed the current psychotropics carefully including drug interactions. Risk benefit ratio favors no change other than as noted in my dictated progress note. Diagnosis: Problems: (1) Schizoaffective disorder, bipolar type (2) Bipolar 1 disorder, mixed, moderate (3) Anxiety disorder (4) Impulse control disorder ANDREA COY MD Jun 12, 2019 22:44
[2019-06-13 06:13] VITALS: BP 111/55
[2019-06-13] MEDS: POLYETHYLENE GLYCOL 3350 17 GM PACKET. PO SCH (09:00)
[2019-06-13] MEDS: CEPHALEXIN 250 MG CAPSULE PO SCH (11:07)
[2019-06-13] MEDS: LACTOBACILLUS RHAMNOSUS GG 1 CAPSULE. PO SCH ×2 (11:07→20:22)
[2019-06-13] MEDS: TORSEMIDE 20 MG TABLET. PO SCH (11:07)
[2019-06-13] MEDS: IPRATRPIUM/ALBUTEROL 0.5/2.5MG 3 ML NEBU. NEB SCH ×4 (11:08→20:20)
[2019-06-13] MEDS: DIVALPROEX 125 MG CAP.SPRINK PO SCH ×2 (11:08→20:21)
[2019-06-13 16:33] VITALS: BP 113/75
[2019-06-13] MEDS: ATORVASTATIN CALCIUM 10 MG TABLET. PO SCH (20:21)
[2019-06-13] MEDS: risperiDONE 0.5 MG TABLET. PO SCH (20:22)
[2019-06-13] MEDS: HYDROcodone/APAP 5/325MG 1 TAB TABLET PO PRN (20:22)
[2019-06-13] MEDS: PATCH REMOVAL. MC SCH (20:24)
--- NOTE | 2019-06-13 21:49 | PDOC ---
Exam Note: Zachary Note: Please also refer to the separate dictated note~for this date of service dictated separately. Discussed the patient with Nursing staff reviewed the chart.~Reviewed interim history and current functioning. Reviewed vital signs,~Labs/ Radiology~and current medications noted below. Continue current treatment with the changes noted in the dictated addendum note Assessment: Vital Signs/I&O: Vital Signs Date Time Temp Pulse Resp B/P (MAP) Pulse Ox O2 Delivery O2 Flow Rate FiO2 06/13/19 16:33 98.7 82 18 113/75 (88) 98 Room Air I & O 06/12/19 06/12/19 06/13/19 15:00 23:00 07:00 Intake Total 480 ml 780 ml Balance 480 ml 780 ml Current Medications: Meds: Current Medications Medications (Trade) Dose Ordered Sig/Daisy Route PRN Reason Start Time Stop Time Status Last Admin Dose Admin Divalproex Sodium (Depakote Sprinkles) 250 mg DAILY PO 06/13/19 09:00 06/13/19 11:08 I have reviewed the current psychotropics carefully including drug interactions. Risk benefit ratio favors no change other than as noted in my dictated progress note. Diagnosis: Problems: (1) Schizoaffective disorder, bipolar type (2) Bipolar 1 disorder, mixed, moderate (3) Anxiety disorder (4) Impulse control disorder ANDREA COY MD Jun 13, 2019 21:49
[2019-06-14 06:14] VITALS: BP 114/65
[2019-06-14] MEDS: IPRATRPIUM/ALBUTEROL 0.5/2.5MG 3 ML NEBU. NEB SCH ×4 (09:51→20:33)
[2019-06-14] MEDS: POLYETHYLENE GLYCOL 3350 17 GM PACKET. PO SCH (09:51)
[2019-06-14] MEDS: DIVALPROEX 125 MG CAP.SPRINK PO SCH ×2 (09:52→20:29)
[2019-06-14] MEDS: ACETAMINOPHEN 500 MG TABLET PO PRN (09:52)
[2019-06-14] MEDS: TORSEMIDE 20 MG TABLET. PO SCH (09:52)
--- NOTE | 2019-06-14 14:07 | PN ---
DATE: 06/12/2019 PSYCHIATRIC PROGRESS NOTE This late entry 06/12/2019 covers the elements not covered in my initial note. SUBJECTIVE: Per Magad RN, the patient slept 7 hours previous night. She continues to be paranoid, suspicious. Denies she is . Denies she has any children. Still gets somewhat psychotic, believes she is going to the football player, Usman Moulton. Valproic acid level is 44, on Depakote 250 b.i.d. and we will increase to 250 a.m., 500 at bedtime. Check CBC, CMP, valproic acid level in 3 days. REVIEW OF SYSTEMS: Ambulation up with one or two assists. No CV, , pulmonary, eye system symptoms on review. She is oriented to herself. Insight, judgment, recent memory is impaired. Mood and affect labile. LABORATORY DATA: Reviewed. IMPRESSION: Unchanged from initial note. PLAN: No change from initial note other than what is noted above. ANDREA COY MD DR: ODALIS/cheyenne JOB#: [id number] / [id number]
[2019-06-14] MEDS ORDERED: POTASSIUM CHLORIDE 20 MEQ TABLET.ER. PO ONE (15:45)
[2019-06-14 16:23] VITALS: BP 121/74
[2019-06-14] MEDS: risperiDONE 0.5 MG TABLET. PO SCH (20:28)
[2019-06-14] MEDS: ATORVASTATIN CALCIUM 10 MG TABLET. PO SCH (20:29)
[2019-06-14] MEDS: PATCH REMOVAL. MC SCH (20:33)
[2019-06-14] MEDS: HYDROcodone/APAP 5/325MG 1 TAB TABLET PO PRN (20:34)
--- NOTE | 2019-06-14 21:54 | PDOC ---
Exam Note: Zachary Note: Please also refer to the separate dictated note~for this date of service dictated separately. Discussed the patient with Nursing staff reviewed the chart.~Reviewed interim history and current functioning. Reviewed vital signs,~Labs/ Radiology~and current medications noted below. Continue current treatment with the changes noted in the dictated addendum note Assessment: Vital Signs/I&O: Vital Signs Date Time Temp Pulse Resp B/P (MAP) Pulse Ox O2 Delivery O2 Flow Rate FiO2 06/14/19 20:34 Room Air 06/14/19 16:23 98.0 97 18 121/74 (90) 92 I & O 06/13/19 06/13/19 06/14/19 15:00 23:00 07:00 Intake Total 480 ml 480 ml Balance 480 ml 480 ml Current Medications: Meds: Current Medications Medications (Trade) Dose Ordered Sig/Daisy Route PRN Reason Start Time Stop Time Status Last Admin Dose Admin Potassium Chloride (Klor-Con) 40 meq 1X ONCE PO 06/14/19 15:45 06/14/19 15:46 DC 06/14/19 17:06 I have reviewed the current psychotropics carefully including drug interactions. Risk benefit ratio favors no change other than as noted in my dictated progress note. Diagnosis: Problems: (1) Schizoaffective disorder, bipolar type (2) Bipolar 1 disorder, mixed, moderate (3) Anxiety disorder (4) Impulse control disorder ANDREA COY MD Jun 14, 2019 21:54
[2019-06-15 05:49] VITALS: BP 108/67
[2019-06-15 06:23] LABS: BASO # 0.1 x10^3/uL (0.0-0.2); BASO % 1 % (0-3); EOS # 0.6 x10^3/uL (0.0-0.7); EOS % 8 % (0-3); HEMATOCRIT 31.6 % (36.0-47.0); HEMOGLOBIN 10.4 g/dL (12.0-15.5); LYMPH # 2.5 x10^3/uL (1.0-4.8); LYMPH % 35 % (24-48); MEAN CORPUSCULAR HEMOGLOBIN 31 pg (25-35); MEAN CORPUSCULAR HGB CONC 33 g/dL (31-37); MEAN CORPUSCULAR VOLUME 95 fL (79-100); MONO # 0.9 x10^3/uL (0.0-1.1); MONO % 13 % (0-9); NEUT # 3.1 x10^3uL (1.8-7.7); NEUT % 43 % (31-73); PLATELET COUNT 212 x10^3/uL (140-400); RED BLOOD COUNT 3.31 x10^6/uL (3.50-5.40); RED CELL DISTRIBUTION WIDTH 14.6 % (11.5-14.5); WHITE BLOOD COUNT 7.2 x10^3/uL (4.0-11.0)
[2019-06-15 06:34] LABS: ALBUMIN 1.8 g/dL (3.4-5.0); ALBUMIN/GLOBULIN RATIO 0.5 (1.0-1.7); ALK PHOS 67 U/L (46-116); ALT (SGPT) 14 U/L (14-59); ANION GAP 4 (6-14); AST (SGOT) 14 U/L (15-37); BLOOD UREA NITROGEN 25 mg/dL (7-20); BUN/CREATININE RATIO 21 (6-20); CALCIUM 8.1 mg/dL (8.5-10.1); CARBON DIOXIDE 34 mmol/L (21-32); CHLORIDE 107 mmol/L (98-107); CREATININE 1.2 mg/dL (0.6-1.0); GFR 42.3; GLUCOSE 76 mg/dL (70-99); SODIUM 145 mmol/L (136-145); TOTAL BILIRUBIN 0.2 mg/dL (0.2-1.0); TOTAL PROTEIN 5.1 g/dL (6.4-8.2)
[2019-06-15 06:38] LABS: VAL ACID 56 mcg/mL (50-100)
[2019-06-15] MEDS: LACTOBACILLUS RHAMNOSUS GG 1 CAPSULE. PO SCH (08:07)
[2019-06-15] MEDS: TORSEMIDE 20 MG TABLET. PO SCH (08:07)
[2019-06-15] MEDS: POLYETHYLENE GLYCOL 3350 17 GM PACKET. PO SCH (08:07)
[2019-06-15] MEDS: DIVALPROEX 125 MG CAP.SPRINK PO SCH ×2 (08:07→20:20)
[2019-06-15] MEDS: IPRATRPIUM/ALBUTEROL 0.5/2.5MG 3 ML NEBU. NEB SCH ×4 (11:18→20:19)
[2019-06-15 15:41] VITALS: BP 118/78
[2019-06-15] MEDS: ACETAMINOPHEN 500 MG TABLET PO PRN (16:15)
[2019-06-15] MEDS: risperiDONE 0.5 MG TABLET. PO SCH (20:20)
[2019-06-15] MEDS: ATORVASTATIN CALCIUM 10 MG TABLET. PO SCH (20:20)
[2019-06-15] MEDS: HYDROcodone/APAP 5/325MG 1 TAB TABLET PO PRN (20:24)
[2019-06-15] MEDS: PATCH REMOVAL. MC SCH (21:00)
[2019-06-16 06:03] VITALS: BP 116/80
--- NOTE | 2019-06-16 06:56 | PDOC ---
Exam Note: Zachary Note: This is a late entry for 06/11/2019. Currently, the unit is shutdown for any admissions and discharges as directed by the Centers for Disease Control (CDC) and the [facility] ([facility]) because of Coronavirus (COVID-19) exposure on the unit. S/O: This is a Telepsychiatry Progress Note. This note covers elements not covered in my initial note. The patient was reviewed with nursing staff, reviewed the chart and TeleHealth Services provided for this date for the patient. She slept 6-1/2 hours previous night. She has been less paranoid, delusional per nursing report. Her called and the patient was tearful but states she is not , has no children and she is here to help the kids who have broken legs. She states she has a broken leg herself playing football, remains delusional, and believes she is helping a football player Usman Lyman and his leg is healing. ROS: Positive for leg pain. Received Tylenol p.r.n. Ambulation impaired. No CV, , Pulmonary, Eye system symptoms on review. MSE: Oriented to herself, and situation. Speech is coherent, has some latency. Abstraction fair. Computation impaired. Language function intact. Attention span is short. Mood and affect withdrawn. Labs: Reviewed. 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 Anxiety disorder unspecified. Mild cognitive impairment. Plan: Continue psychotropics from initial note. Assessment: Vital Signs/I&O: Vital Signs Date Time Temp Pulse Resp B/P (MAP) Pulse Ox O2 Delivery O2 Flow Rate FiO2 06/16/19 06:03 99.3 94 18 116/80 (92) 90 06/15/19 21:30 Room Air I & O 06/15/19 06/15/19 06/16/19 15:00 23:00 07:00 Intake Total 240 ml 60 ml Balance 240 ml 60 ml Current Medications: I have reviewed the current psychotropics carefully including drug interactions. Risk benefit ratio favors no change other than as noted in my dictated progress note. Diagnosis: Problems: (1) Schizoaffective disorder, bipolar type (2) Bipolar 1 disorder, mixed, moderate (3) Anxiety disorder (4) Impulse control disorder ANDREA COY MD Jun 16, 2019 06:56
[2019-06-16 07:40] VITALS: BP 127/72
--- NOTE | 2019-06-16 07:59 | PDOC ---
Exam Note: Zachary Note: This is a late entry for 06/13/2019. Currently, the unit is shutdown for any admissions and discharges as directed by the Centers for Disease Control (CDC) and the [facility] ([facility]) because of Coronavirus (COVID-19) exposure on the unit. S/O: This note covers elements not covered in my initial note. The patient was reviewed with nursing staff, reviewed the chart and TeleHealth Services provided for this date for the patient. Discussed with STACIE Man. She slept 6-3/4 hours previous night. ROS: Ambulation impaired. No CV, , Pulmonary, Eye system symptoms on review. MSE: Oriented to herself, and situation. Speech is coherent, has some latency. Abstraction fair. Computation impaired. Language function intact. Attention span is short. Mood and affect withdrawn. Labs: Reviewed. 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 Anxiety disorder unspecified. Mild cognitive impairment. Plan: Continue psychotropics from initial note. Assessment: Vital Signs/I&O: Vital Signs Date Time Temp Pulse Resp B/P (MAP) Pulse Ox O2 Delivery O2 Flow Rate FiO2 06/16/19 06:03 99.3 94 18 116/80 (92) 90 06/15/19 21:30 Room Air I & O 06/15/19 06/15/19 06/16/19 15:00 23:00 07:00 Intake Total 240 ml 60 ml Balance 240 ml 60 ml Current Medications: I have reviewed the current psychotropics carefully including drug interactions. Risk benefit ratio favors no change other than as noted in my dictated progress note. Diagnosis: Problems: (1) Schizoaffective disorder, bipolar type (2) Bipolar 1 disorder, mixed, moderate (3) Anxiety disorder (4) Impulse control disorder ANDREA COY MD Jun 16, 2019 07:59
[2019-06-16] MEDS: IPRATRPIUM/ALBUTEROL 0.5/2.5MG 3 ML NEBU. NEB SCH ×4 (08:00→20:59)
[2019-06-16 08:15] LABS: BASO # 0.1 x10^3/uL (0.0-0.2); BASO % 1 % (0-3); EOS # 0.5 x10^3/uL (0.0-0.7); EOS % 5 % (0-3); HEMATOCRIT 35.3 % (36.0-47.0); HEMOGLOBIN 11.7 g/dL (12.0-15.5); LYMPH % 21 % (24-48); MEAN CORPUSCULAR HEMOGLOBIN 32 pg (25-35); MEAN CORPUSCULAR HGB CONC 33 g/dL (31-37); MEAN CORPUSCULAR VOLUME 96 fL (79-100); MONO # 0.7 x10^3/uL (0.0-1.1); MONO % 8 % (0-9); NEUT # 6.4 x10^3uL (1.8-7.7); NEUT % 66 % (31-73); PLATELET COUNT 210 x10^3/uL (140-400); RED BLOOD COUNT 3.68 x10^6/uL (3.50-5.40); WHITE BLOOD COUNT 9.7 x10^3/uL (4.0-11.0)
[2019-06-16 08:21] LABS: CALCIUM 8.3 mg/dL (8.5-10.1); CREATININE 1.4 mg/dL (0.6-1.0); GFR 35.4; POTASSIUM 4.5 mmol/L (3.5-5.1)
[2019-06-16 08:27] LABS: ALBUMIN 2.1 g/dL (3.4-5.0); ALBUMIN/GLOBULIN RATIO 0.5 (1.0-1.7); TOTAL BILIRUBIN 0.2 mg/dL (0.2-1.0); TOTAL PROTEIN 6.1 g/dL (6.4-8.2)
--- NOTE | 2019-06-16 08:28 | PDOC ---
Exam Note: Zachary Note: This is a late entry for 06/14/2019. Currently, the unit is shutdown for any admissions and discharges as directed by the Centers for Disease Control (CDC) and the [facility] ([facility]) because of Coronavirus (COVID-19) exposure on the unit. S/O: This note covers elements not covered in my initial note. The patient was reviewed with nursing staff, reviewed the chart and TeleHealth Services provided for this date for the patient. Discussed with STACIE Man. Her again called but she states she is not as before. ROS: Ambulation impaired. No CV, , Pulmonary, Eye system symptoms on review. MSE: Oriented to herself, and situation. Speech is coherent, has some latency. Abstraction fair. Computation impaired. Language function intact. Attention span is short. Mood and affect withdrawn. Labs: Reviewed. 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 Anxiety disorder unspecified. Mild cognitive impairment. Plan: Continue psychotropics from initial note. Assessment: Vital Signs/I&O: Vital Signs Date Time Temp Pulse Resp B/P (MAP) Pulse Ox O2 Delivery O2 Flow Rate FiO2 06/16/19 06:03 99.3 94 18 116/80 (92) 90 06/15/19 21:30 Room Air I & O 06/15/19 06/15/19 06/16/19 14:59 22:59 06:59 Intake Total 240 ml 60 ml Balance 240 ml 60 ml Labs: Laboratory Tests Test 06/16/19 08:00 White Blood Count 9.7 x10^3/uL (4.0-11.0) Red Blood Count 3.68 x10^6/uL (3.50-5.40) Hemoglobin 11.7 g/dL (12.0-15.5) L Hematocrit 35.3 % (36.0-47.0) L Mean Corpuscular Volume 96 fL (79-100) Mean Corpuscular Hemoglobin 32 pg (25-35) Mean Corpuscular Hemoglobin Concent 33 g/dL (31-37) Red Cell Distribution Width 15.0 % (11.5-14.5) H Platelet Count 210 x10^3/uL (140-400) Neutrophils (%) (Auto) 66 % (31-73) Lymphocytes (%) (Auto) 21 % (24-48) L Monocytes (%) (Auto) 8 % (0-9) Eosinophils (%) (Auto) 5 % (0-3) H Basophils (%) (Auto) 1 % (0-3) Neutrophils # (Auto) 6.4 x10^3uL (1.8-7.7) Lymphocytes # (Auto) 2.0 x10^3/uL (1.0-4.8) Monocytes # (Auto) 0.7 x10^3/uL (0.0-1.1) Eosinophils # (Auto) 0.5 x10^3/uL (0.0-0.7) Basophils # (Auto) 0.1 x10^3/uL (0.0-0.2) Platelet Estimate Pending Sodium Level 141 mmol/L (136-145) Potassium Level 4.5 mmol/L (3.5-5.1) Chloride Level 103 mmol/L (98-107) Carbon Dioxide Level 36 mmol/L (21-32) H Anion Gap 2 (6-14) L Blood Urea Nitrogen 22 mg/dL (7-20) H Creatinine 1.4 mg/dL (0.6-1.0) H Estimated GFR (Cockcroft-Gault) 35.4 BUN/Creatinine Ratio 16 (6-20) Glucose Level 93 mg/dL (70-99) Calcium Level 8.3 mg/dL (8.5-10.1) L Total Bilirubin Pending Aspartate Amino Transferase (AST) Pending Alanine Aminotransferase (ALT) Pending Alkaline Phosphatase Pending Total Protein Pending Albumin Pending Albumin/Globulin Ratio Pending Current Medications: I have reviewed the current psychotropics carefully including drug interactions. Risk benefit ratio favors no change other than as noted in my dictated progress note. Diagnosis: Problems: (1) Schizoaffective disorder, bipolar type (2) Bipolar 1 disorder, mixed, moderate (3) Anxiety disorder (4) Impulse control disorder ANDREA COY MD Jun 16, 2019 08:28
[2019-06-16 08:49] LABS: INFLUENZA A PATIENT NEGATIVE (NEGATIVE); INFLUENZA B PATIENT NEGATIVE (NEGATIVE)
--- NOTE | 2019-06-16 08:57 | PDOC ---
Exam Note: Zachary Note: This is a late entry for 06/15/2019. Currently, the unit is shutdown for any admissions and discharges as directed by the Centers for Disease Control (CDC) and the [facility] ([facility]) because of Coronavirus (COVID-19) exposure on the unit. S/O: This note covers elements not covered in my initial note. The patient was reviewed with nursing staff, reviewed the chart and TeleHealth Services provided for this date for the patient. She was seen on a video-conferencing call coordinated with Noah QUINONES, nursing staff on the unit whose appropriately protected with personal protective equipment and mask on the unit. Per STACIE Chun the patient is alert and oriented x4 but remains quite paranoid, delusional. She slept 7-1/2 hours, calm, pleasant, cooperative. Valproic acid level is 56. ROS: Ambulation impaired. No CV, , Pulmonary, Eye system symptoms on review. MSE: Oriented to herself, and situation. Speech is coherent, has some latency. Abstraction fair. Computation impaired. Language function intact. Attention span is short. Mood and affect withdrawn. Labs: Reviewed. 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 Anxiety disorder unspecified. Mild cognitive impairment. Plan: The patients Risperdal may need to be increased as she remains paranoid. If valproic acid level just turned therapeutic, then I will give it another 24 to 48 hours then decide. Assessment: Vital Signs/I&O: Vital Signs Date Time Temp Pulse Resp B/P (MAP) Pulse Ox O2 Delivery O2 Flow Rate FiO2 06/16/19 06:03 99.3 94 18 116/80 (92) 90 06/15/19 21:30 Room Air I & O 06/15/19 06/15/19 06/16/19 14:59 22:59 06:59 Intake Total 240 ml 60 ml Balance 240 ml 60 ml Labs: Laboratory Tests Test 06/16/19 08:00 White Blood Count 9.7 x10^3/uL (4.0-11.0) Red Blood Count 3.68 x10^6/uL (3.50-5.40) Hemoglobin 11.7 g/dL (12.0-15.5) L Hematocrit 35.3 % (36.0-47.0) L Mean Corpuscular Volume 96 fL (79-100) Mean Corpuscular Hemoglobin 32 pg (25-35) Mean Corpuscular Hemoglobin Concent 33 g/dL (31-37) Red Cell Distribution Width 15.0 % (11.5-14.5) H Platelet Count 210 x10^3/uL (140-400) Neutrophils (%) (Auto) 66 % (31-73) Lymphocytes (%) (Auto) 21 % (24-48) L Monocytes (%) (Auto) 8 % (0-9) Eosinophils (%) (Auto) 5 % (0-3) H Basophils (%) (Auto) 1 % (0-3) Neutrophils # (Auto) 6.4 x10^3uL (1.8-7.7) Lymphocytes # (Auto) 2.0 x10^3/uL (1.0-4.8) Monocytes # (Auto) 0.7 x10^3/uL (0.0-1.1) Eosinophils # (Auto) 0.5 x10^3/uL (0.0-0.7) Basophils # (Auto) 0.1 x10^3/uL (0.0-0.2) Platelet Estimate Pending Sodium Level 141 mmol/L (136-145) Potassium Level 4.5 mmol/L (3.5-5.1) Chloride Level 103 mmol/L (98-107) Carbon Dioxide Level 36 mmol/L (21-32) H Anion Gap 2 (6-14) L Blood Urea Nitrogen 22 mg/dL (7-20) H Creatinine 1.4 mg/dL (0.6-1.0) H Estimated GFR (Cockcroft-Gault) 35.4 BUN/Creatinine Ratio 16 (6-20) Glucose Level 93 mg/dL (70-99) Lactic Acid Level 1.1 mmol/L (0.4-2.0) Calcium Level 8.3 mg/dL (8.5-10.1) L Total Bilirubin 0.2 mg/dL (0.2-1.0) Aspartate Amino Transferase (AST) 14 U/L (15-37) L Alanine Aminotransferase (ALT) 15 U/L (14-59) Alkaline Phosphatase 79 U/L (46-116) Total Protein 6.1 g/dL (6.4-8.2) L Albumin 2.1 g/dL (3.4-5.0) L Albumin/Globulin Ratio 0.5 (1.0-1.7) L Influenza Type A (Rapid) Negative (NEGATIVE) Influenza Type B (Rapid) Negative (NEGATIVE) Group A Streptococcus Rapid Negative (NEGATIVE) Current Medications: I have reviewed the current psychotropics carefully including drug interactions. Risk benefit ratio favors no change other than as noted in my dictated progress note. Diagnosis: Problems: (1) Schizoaffective disorder, bipolar type (2) Bipolar 1 disorder, mixed, moderate (3) Anxiety disorder (4) Impulse control disorder ANDREA COY MD Jun 16, 2019 08:57
--- NOTE | 2019-06-16 09:21 | RAD ---
EXAM: CHEST 1 VIEW History: Low oxygen COMPARISON: 06/06/2019 TECHNIQUE: Single portable radiograph of the chest FINDINGS: The cardiac silhouette is unremarkable. The lungs are clear bilaterally. The costophrenic sulci are clear and well demarcated. IMPRESSION: No radiographic evidence of an acute cardiopulmonary process. Electronically signed by: Dereck Solis MD (06/16/2019 9:18 AM) [id number]
[2019-06-16] MEDS: DIVALPROEX 125 MG CAP.SPRINK PO SCH ×2 (10:13→20:59)
[2019-06-16] MEDS: POLYETHYLENE GLYCOL 3350 17 GM PACKET. PO SCH (10:13)
[2019-06-16] MEDS: LACTOBACILLUS RHAMNOSUS GG 1 CAPSULE. PO SCH (10:13)
[2019-06-16] MEDS: TORSEMIDE 20 MG TABLET. PO SCH ×2 (10:13→17:52)
[2019-06-16 13:10] LABS: % EOS 8 % (0-5); % LYMPHS 18 % (24-48); % MONOS 5 % (0-10); % SEGS 69 % (35-66)
[2019-06-16 13:11] LABS: PLT ESTIMATE ADEQUATE (ADEQUATE)
[2019-06-16 16:24] VITALS: BP 110/69
[2019-06-16] MEDS: risperiDONE 0.5 MG TABLET. PO SCH (20:58)
[2019-06-16] MEDS: PATCH REMOVAL. MC SCH (20:59)
[2019-06-16] MEDS: ATORVASTATIN CALCIUM 10 MG TABLET. PO SCH (20:59)
[2019-06-16] MEDS: HYDROcodone/APAP 5/325MG 1 TAB TABLET PO PRN (21:38)
--- NOTE | 2019-06-16 23:19 | PDOC ---
Exam Note: Zachary Note: S/O: This note covers elements not covered in my initial note. The patient was reviewed with nursing staff, reviewed the chart. Discussed with STACIE Chun. Patient slept 10 hours. She has had low-grade fever. O2 sats were low and chest x-ray has been done. We will defer to Dr. Abdi and may get a COVID-19 screen since the unit is on lockdown for a prior exposure to COVID-19. She does have her leg inflamed. ROS: Alert and oriented at times. Complains of being tired. Has short-term memory deficits. She is currently in isolation consequent to above. No CV, , Pulmonary, Eye system symptoms on review. MSE: Oriented reasonably. Speech is coherent, has some latency. Abstraction fair. Computation impaired. Language function intact. Mood and affect somewhat withdrawn. Labs: Reviewed. 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 Anxiety disorder unspeci fied. Mild cognitive impairment. Plan: No change from initial note. She will remain in isolation till we get the Coronavirus (COVID-19) screen returned. Assessment: Vital Signs/I&O: Vital Signs Date Time Temp Pulse Resp B/P (MAP) Pulse Ox O2 Delivery O2 Flow Rate FiO2 06/16/19 21:38 93 Room Air 06/16/19 16:24 99.1 85 20 110/69 (83) 06/16/19 13:45 3.0 I & O 06/15/19 06/15/19 06/16/19 15:00 23:00 07:00 Intake Total 240 ml 60 ml Balance 240 ml 60 ml Labs: Laboratory Tests Test 06/16/19 08:00 White Blood Count 9.7 x10^3/uL (4.0-11.0) Red Blood Count 3.68 x10^6/uL (3.50-5.40) Hemoglobin 11.7 g/dL (12.0-15.5) L Hematocrit 35.3 % (36.0-47.0) L Mean Corpuscular Volume 96 fL (79-100) Mean Corpuscular Hemoglobin 32 pg (25-35) Mean Corpuscular Hemoglobin Concent 33 g/dL (31-37) Red Cell Distribution Width 15.0 % (11.5-14.5) H Platelet Count 210 x10^3/uL (140-400) Neutrophils (%) (Auto) 66 % (31-73) Lymphocytes (%) (Auto) 21 % (24-48) L Monocytes (%) (Auto) 8 % (0-9) Eosinophils (%) (Auto) 5 % (0-3) H Basophils (%) (Auto) 1 % (0-3) Neutrophils # (Auto) 6.4 x10^3uL (1.8-7.7) Lymphocytes # (Auto) 2.0 x10^3/uL (1.0-4.8) Monocytes # (Auto) 0.7 x10^3/uL (0.0-1.1) Eosinophils # (Auto) 0.5 x10^3/uL (0.0-0.7) Basophils # (Auto) 0.1 x10^3/uL (0.0-0.2) Segmented Neutrophils % 69 % (35-66) H Lymphocytes % 18 % (24-48) L Monocytes % 5 % (0-10) Eosinophils % 8 % (0-5) H Platelet Estimate Adequate (ADEQUATE) Sodium Level 141 mmol/L (136-145) Potassium Level 4.5 mmol/L (3.5-5.1) Chloride Level 103 mmol/L (98-107) Carbon Dioxide Level 36 mmol/L (21-32) H Anion Gap 2 (6-14) L Blood Urea Nitrogen 22 mg/dL (7-20) H Creatinine 1.4 mg/dL (0.6-1.0) H Estimated GFR (Cockcroft-Gault) 35.4 BUN/Creatinine Ratio 16 (6-20) Glucose Level 93 mg/dL (70-99) Lactic Acid Level 1.1 mmol/L (0.4-2.0) Calcium Level 8.3 mg/dL (8.5-10.1) L Total Bilirubin 0.2 mg/dL (0.2-1.0) Aspartate Amino Transferase (AST) 14 U/L (15-37) L Alanine Aminotransferase (ALT) 15 U/L (14-59) Alkaline Phosphatase 79 U/L (46-116) Total Protein 6.1 g/dL (6.4-8.2) L Albumin 2.1 g/dL (3.4-5.0) L Albumin/Globulin Ratio 0.5 (1.0-1.7) L Influenza Type A (Rapid) Negative (NEGATIVE) Influenza Type B (Rapid) Negative (NEGATIVE) Group A Streptococcus Rapid Negative (NEGATIVE) Current Medications: Meds: Current Medications Medications (Trade) Dose Ordered Sig/Daisy Route PRN Reason Start Time Stop Time Status Last Admin Dose Admin Torsemide (Demadex) 20 mg [id number] PO 06/16/19 17:30 06/16/19 17:52 I have reviewed the current psychotropics carefully including drug interactions. Risk benefit ratio favors no change other than as noted in my dictated progress note. Diagnosis: Problems: (1) Schizoaffective disorder, bipolar type (2) Bipolar 1 disorder, mixed, moderate (3) Anxiety disorder (4) Impulse control disorder ANDREA COY MD Jun 16, 2019 23:19
[2019-06-17 06:34] VITALS: BP 119/73
[2019-06-17] MEDS: IPRATRPIUM/ALBUTEROL 0.5/2.5MG 3 ML NEBU. NEB SCH ×4 (09:39→20:08)
[2019-06-17] MEDS: LACTOBACILLUS RHAMNOSUS GG 1 CAPSULE. PO SCH (09:40)
[2019-06-17] MEDS: TORSEMIDE 20 MG TABLET. PO SCH ×2 (09:40→16:57)
[2019-06-17] MEDS: DIVALPROEX 125 MG CAP.SPRINK PO SCH ×2 (09:40→20:08)
[2019-06-17] MEDS: POLYETHYLENE GLYCOL 3350 17 GM PACKET. PO SCH (09:41)
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
[2019-06-17 16:27] VITALS: BP 117/71
[2019-06-17] MEDS: risperiDONE 0.5 MG TABLET. PO SCH (20:08)
[2019-06-17] MEDS: ATORVASTATIN CALCIUM 10 MG TABLET. PO SCH (20:08)
[2019-06-17] MEDS: PATCH REMOVAL. MC SCH (20:09)
--- NOTE | 2019-06-17 23:56 | PDOC ---
Exam Note: Zachary Note: S/O: This note covers elements not covered in my initial note. Discussed the patient with nursing staff, reviewed the chart. In the morning, the patient had treatment team meeting with the entire team nursing staff, social service staff and myself. Sleeping average 6 hours. Appetite is 50%. She has been calm, pleasant, cooperative, a little drowsy, still paranoid about the [employer] Football player Usman Domínguez. ROS: Ambulation impaired in wheelchair. No CV, , Pulmonary, Eye system symptoms on review. MSE: Oriented to herself and situation. Speech has some latency, coherent. Abstraction fair. Computation impaired. Language function intact. Mood and affect withdrawn. Labs: Reviewed. 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 Anxiety disorder unspecified. Mild cognitive impairment. Plan: Continue Depakote 500 mg h.s. and 250 mg a.m., level therapeutic at 56. Increase Risperdal from 0.5 mg h.s. to 0.75 mg h.s. Rest unchanged. Assessment: Vital Signs/I&O: Vital Signs Date Time Temp Pulse Resp B/P (MAP) Pulse Ox O2 Delivery O2 Flow Rate FiO2 06/17/19 16:27 98.4 88 18 117/71 (86) 95 Nasal Cannula 2.0 I & O 06/16/19 06/16/19 06/17/19 15:00 23:00 07:00 Intake Total 360 ml 240 ml Balance 360 ml 240 ml Current Medications: Meds: Current Medications Medications (Trade) Dose Ordered Sig/Daisy Route PRN Reason Start Time Stop Time Status Last Admin Dose Admin Risperidone (RisperDAL) 0.75 mg QHS PO 06/17/19 21:00 06/17/19 20:08 I have reviewed the current psychotropics carefully including drug interactions. Risk benefit ratio favors no change other than as noted in my dictated progress note. Diagnosis: Problems: (1) Schizoaffective disorder, bipolar type (2) Bipolar 1 disorder, mixed, moderate (3) Anxiety disorder (4) Impulse control disorder ANDREA COY MD Jun 17, 2019 23:56
[2019-06-18 06:50] VITALS: BP 119/65
[2019-06-18] MEDS: LACTOBACILLUS RHAMNOSUS GG 1 CAPSULE. PO SCH (10:20)
[2019-06-18] MEDS: TORSEMIDE 20 MG TABLET. PO SCH ×2 (10:20→17:10)
[2019-06-18] MEDS: POLYETHYLENE GLYCOL 3350 17 GM PACKET. PO SCH (10:20)
[2019-06-18] MEDS: IPRATRPIUM/ALBUTEROL 0.5/2.5MG 3 ML NEBU. NEB SCH ×4 (10:20→19:48)
[2019-06-18] MEDS: DIVALPROEX 125 MG CAP.SPRINK PO SCH ×2 (10:20→19:49)
[2019-06-18 15:59] VITALS: BP 117/67
[2019-06-18] MEDS: risperiDONE 0.5 MG TABLET. PO SCH (19:49)
[2019-06-18] MEDS: ATORVASTATIN CALCIUM 10 MG TABLET. PO SCH (19:49)
[2019-06-18] MEDS: PATCH REMOVAL. MC SCH (19:50)
[2019-06-18] MEDS: APIXABAN 2.5 MG TABLET PO SCH (19:50)
[2019-06-18 22:59] LABS: COLOR,URINE YELLOW
[2019-06-18 23:00] LABS: BACTERIA,URINE 0 /HPF (0-FEW); BILIRUBIN,URINE NEG (NEG); CLARITY,URINE HAZY; GLUCOSE,URINE NEG (NEG); NITRITE,URINE NEG (NEG); RBC,URINE 0 /HPF (0-2); SQUAMOUS EPITHELIAL CELL,UR MOD /LPF; UROBILINOGEN,URINE 0.2 mg/dL (0.2 mg/dL)
[2019-06-19 06:24] VITALS: BP 137/82
[2019-06-19] MEDS: IPRATRPIUM/ALBUTEROL 0.5/2.5MG 3 ML NEBU. NEB SCH ×2 (08:00→10:47)
[2019-06-19] MEDS: POLYETHYLENE GLYCOL 3350 17 GM PACKET. PO SCH (09:00)
[2019-06-19] MEDS: LACTOBACILLUS RHAMNOSUS GG 1 CAPSULE. PO SCH (09:00)
[2019-06-19] MEDS: TORSEMIDE 20 MG TABLET. PO SCH ×2 (09:00→17:29)
[2019-06-19] MEDS: DIVALPROEX 125 MG CAP.SPRINK PO SCH ×2 (09:00→19:37)
[2019-06-19] MEDS: APIXABAN 2.5 MG TABLET PO SCH ×2 (09:00→19:37)
[2019-06-19 10:28] LABS: CALCIUM 8.3 mg/dL (8.5-10.1); CREATININE 1.1 mg/dL (0.6-1.0); GFR 46.8; POTASSIUM 3.2 mmol/L (3.5-5.1)
[2019-06-19] MEDS: IPRATROPIUM/ALBUTEROL 20/100mcg/INH INHALER. INH SCH ×3 (12:00→19:36)
[2019-06-19 16:07] VITALS: BP 136/80
[2019-06-19] MEDS: risperiDONE 0.5 MG TABLET. PO SCH (19:37)
[2019-06-19] MEDS: PATCH REMOVAL. MC SCH (19:38)
[2019-06-19] MEDS: ATORVASTATIN CALCIUM 10 MG TABLET. PO SCH (19:38)
[2019-06-19] MEDS: HYDROcodone/APAP 5/325MG 1 TAB TABLET PO PRN (20:19)
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
--- NOTE | 2019-06-20 08:33 | PDOC ---
Exam Note: Zachary Note: S/O: This note is a late entry for DOS 06/19/2019 covers elements not covered in my initial note. Discussed the patient with nursing staff, reviewed the chart. Patients COVID-19 screen was negative. Discussed with Frannie QUINONES and met with the patient individually via audio-visual coordinated with Frannie QUINONES. The patient has been anxious, irritable at times, somewhat delusional, pulled her fist towards nursing staff, did not strikeout. UA has reflex to culture sensitivity could be contributing to her confusion, psychosis. Slept 6 hours previous night. She has not been talking about Usman Domínguez, the football player and her association with him. ROS: Ambulation impaired in wheelchair. No CV, , Pulmonary, Eye system symptoms on review. MSE: Oriented reasonably. Speech has some latency, coherent. Abstraction fair. Computation impaired. Language function intact. Mood and affect withdrawn. Labs: Reviewed. 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 Anxiety disorder unspecified. Mild cognitive impairment. Probable UTI. Plan: No change from initial note. If UTI is positive, we will treat this as this could account for some of her psychosis and worsening confusion. Assessment: Vital Signs/I&O: Vital Signs Date Time Temp Pulse Resp B/P (MAP) Pulse Ox O2 Delivery O2 Flow Rate FiO2 06/19/19 22:28 96 06/19/19 16:07 97.7 98 22 136/80 (98) Room Air 06/19/19 06:24 2.0 I & O 06/19/19 06/19/19 06/20/19 15:00 23:00 07:00 Intake Total 720 ml 360 ml 120 ml Balance 720 ml 360 ml 120 ml Labs: Laboratory Tests Test 06/19/19 09:50 Sodium Level 143 mmol/L (136-145) Potassium Level 3.2 mmol/L (3.5-5.1) L Chloride Level 102 mmol/L (98-107) Carbon Dioxide Level 36 mmol/L (21-32) H Anion Gap 5 (6-14) L Blood Urea Nitrogen 22 mg/dL (7-20) H Creatinine 1.1 mg/dL (0.6-1.0) H Estimated GFR (Cockcroft-Gault) 46.8 Glucose Level 92 mg/dL (70-99) Calcium Level 8.3 mg/dL (8.5-10.1) L Current Medications: Meds: Current Medications Medications (Trade) Dose Ordered Sig/Daisy Route PRN Reason Start Time Stop Time Status Last Admin Dose Admin Albuterol/ Ipratropium (Combivent Respimat 20-100 Mcg) 1 puff RTQID INH 06/19/19 12:00 06/19/19 19:36 I have reviewed the current psychotropics carefully including drug interactions. Risk benefit ratio favors no change other than as noted in my dictated progress note. Diagnosis: Problems: (1) Schizoaffective disorder, bipolar type (2) Bipolar 1 disorder, mixed, moderate (3) Anxiety disorder (4) Impulse control disorder ANDREA COY MD Jun 20, 2019 08:33
[2019-06-20] MEDS: POLYETHYLENE GLYCOL 3350 17 GM PACKET. PO SCH (08:44)
[2019-06-20] MEDS: DIVALPROEX 125 MG CAP.SPRINK PO SCH ×2 (08:44→19:54)
[2019-06-20] MEDS: TORSEMIDE 20 MG TABLET. PO SCH ×2 (08:44→16:06)
[2019-06-20] MEDS: APIXABAN 2.5 MG TABLET PO SCH ×2 (08:44→19:53)
[2019-06-20] MEDS: LACTOBACILLUS RHAMNOSUS GG 1 CAPSULE. PO SCH ×2 (08:44→19:53)
[2019-06-20] MEDS: IPRATROPIUM/ALBUTEROL 20/100mcg/INH INHALER. INH SCH ×4 (08:45→19:38)
[2019-06-20 09:15] LABS: BASO % 0 % (0-3); EOS # 0.2 x10^3/uL (0.0-0.7); EOS % 2 % (0-3); HEMATOCRIT 37.2 % (36.0-47.0); HEMOGLOBIN 12.3 g/dL (12.0-15.5); LYMPH # 2.1 x10^3/uL (1.0-4.8); LYMPH % 20 % (24-48); MEAN CORPUSCULAR HEMOGLOBIN 32 pg (25-35); MEAN CORPUSCULAR HGB CONC 33 g/dL (31-37); MEAN CORPUSCULAR VOLUME 96 fL (79-100); MONO # 1.5 x10^3/uL (0.0-1.1); MONO % 14 % (0-9); NEUT # 7.1 x10^3uL (1.8-7.7); NEUT % 65 % (31-73); PLATELET COUNT 203 x10^3/uL (140-400); RED BLOOD COUNT 3.88 x10^6/uL (3.50-5.40); RED CELL DISTRIBUTION WIDTH 14.8 % (11.5-14.5)
[2019-06-20 09:27] LABS: ALBUMIN 2.2 g/dL (3.4-5.0); ALBUMIN/GLOBULIN RATIO 0.5 (1.0-1.7); TOTAL PROTEIN 6.6 g/dL (6.4-8.2)
[2019-06-20 09:28] LABS: CALCIUM 8.9 mg/dL (8.5-10.1); CREATININE 1.3 mg/dL (0.6-1.0); GFR 38.6; POTASSIUM 3.3 mmol/L (3.5-5.1); TOTAL BILIRUBIN 0.5 mg/dL (0.2-1.0)
[2019-06-20 16:11] VITALS: BP 127/72
[2019-06-20] MEDS: ALBUTEROL SULFATE 2.5 MG/3 ML NEBU. NEB PRN (19:39)
[2019-06-20] MEDS: HYDROcodone/APAP 5/325MG 1 TAB TABLET PO PRN (19:53)
[2019-06-20] MEDS: ATORVASTATIN CALCIUM 10 MG TABLET. PO SCH (19:53)
[2019-06-20] MEDS: risperiDONE 0.5 MG TABLET. PO SCH (19:53)
[2019-06-20] MEDS: PATCH REMOVAL. MC SCH (19:54)
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
[2019-06-21 05:59] VITALS: BP 130/78
[2019-06-21] MEDS: POLYETHYLENE GLYCOL 3350 17 GM PACKET. PO SCH ×2 (09:00→09:04)
[2019-06-21] MEDS: APIXABAN 2.5 MG TABLET PO SCH ×2 (09:04→19:55)
[2019-06-21] MEDS: IPRATROPIUM/ALBUTEROL 20/100mcg/INH INHALER. INH SCH ×4 (09:04→19:56)
[2019-06-21] MEDS: TORSEMIDE 20 MG TABLET. PO SCH ×2 (09:04→15:22)
[2019-06-21] MEDS: DIVALPROEX 125 MG CAP.SPRINK PO SCH ×2 (09:05→19:56)
[2019-06-21] MEDS: ACETAMINOPHEN 500 MG TABLET PO PRN (09:12)
[2019-06-21] MEDS: HYDROcodone/APAP 5/325MG 1 TAB TABLET PO PRN ×2 (15:22→22:29)
[2019-06-21 16:05] VITALS: BP 121/75
[2019-06-21] MEDS: risperiDONE 0.5 MG TABLET. PO SCH (19:55)
[2019-06-21] MEDS: ATORVASTATIN CALCIUM 10 MG TABLET. PO SCH (19:55)
[2019-06-21] MEDS: PATCH REMOVAL. MC SCH (19:56)
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
[2019-06-22 06:18] VITALS: BP 117/64
[2019-06-22] MEDS: POLYETHYLENE GLYCOL 3350 17 GM PACKET. PO SCH (08:49)
[2019-06-22] MEDS: LACTOBACILLUS RHAMNOSUS GG 1 CAPSULE. PO SCH (08:51)
[2019-06-22] MEDS: TORSEMIDE 20 MG TABLET. PO SCH ×2 (08:51→16:10)
[2019-06-22] MEDS: IPRATROPIUM/ALBUTEROL 20/100mcg/INH INHALER. INH SCH ×4 (08:51→20:30)
[2019-06-22] MEDS: APIXABAN 2.5 MG TABLET PO SCH ×2 (08:51→20:30)
[2019-06-22] MEDS: DIVALPROEX 125 MG CAP.SPRINK PO SCH ×2 (08:51→20:30)
[2019-06-22] MEDS: HYDROcodone/APAP 5/325MG 1 TAB TABLET PO PRN (12:45)
[2019-06-22 15:33] VITALS: BP 122/67
[2019-06-22] MEDS: PATCH REMOVAL. MC SCH (20:30)
[2019-06-22] MEDS: ATORVASTATIN CALCIUM 10 MG TABLET. PO SCH (20:30)
[2019-06-22] MEDS: risperiDONE 0.5 MG TABLET. PO SCH (20:30)
--- NOTE | 2019-06-22 22:00 | PDOC ---
Exam Note: Zachary Note: Please also refer to the separate dictated note~for this date of service dictated separately. Discussed the patient with Nursing staff reviewed the chart.~Reviewed interim history and current functioning. Reviewed vital signs,~Labs/ Radiology~and current medications noted below. Continue current treatment with the changes noted in the dictated addendum note Assessment: Vital Signs/I&O: Vital Signs Date Time Temp Pulse Resp B/P (MAP) Pulse Ox O2 Delivery O2 Flow Rate FiO2 06/22/19 15:33 98.1 90 18 122/67 (85) 94 06/21/19 23:33 Room Air 06/19/19 06:24 2.0 I & O 06/21/19 06/21/19 06/22/19 15:00 23:00 07:00 Intake Total 720 ml 480 ml Balance 720 ml 480 ml Current Medications: I have reviewed the current psychotropics carefully including drug interactions. Risk benefit ratio favors no change other than as noted in my dictated progress note. Diagnosis: Problems: (1) Schizoaffective disorder, bipolar type (2) Bipolar 1 disorder, mixed, moderate (3) Anxiety disorder (4) Impulse control disorder ANDREA COY MD Jun 22, 2019 22:00
[2019-06-23 06:24] VITALS: BP 108/59
[2019-06-23] MEDS: TORSEMIDE 20 MG TABLET. PO SCH ×2 (08:43→17:20)
[2019-06-23] MEDS: IPRATROPIUM/ALBUTEROL 20/100mcg/INH INHALER. INH SCH ×4 (08:43→19:37)
[2019-06-23] MEDS: POLYETHYLENE GLYCOL 3350 17 GM PACKET. PO SCH (08:44)
[2019-06-23] MEDS: DIVALPROEX 125 MG CAP.SPRINK PO SCH ×2 (08:44→19:37)
[2019-06-23] MEDS: LACTOBACILLUS RHAMNOSUS GG 1 CAPSULE. PO SCH (08:44)
[2019-06-23] MEDS: APIXABAN 2.5 MG TABLET PO SCH ×2 (08:44→19:37)
[2019-06-23 09:05] LABS: BASO # 0.1 x10^3/uL (0.0-0.2); BASO % 1 % (0-3); EOS # 0.4 x10^3/uL (0.0-0.7); EOS % 5 % (0-3); LYMPH # 2.3 x10^3/uL (1.0-4.8); LYMPH % 31 % (24-48); MEAN CORPUSCULAR HEMOGLOBIN 32 pg (25-35); MEAN CORPUSCULAR HGB CONC 33 g/dL (31-37); MEAN CORPUSCULAR VOLUME 96 fL (79-100); MONO % 14 % (0-9); NEUT # 3.6 x10^3uL (1.8-7.7); NEUT % 49 % (31-73); PLATELET COUNT 203 x10^3/uL (140-400); RED BLOOD COUNT 3.76 x10^6/uL (3.50-5.40); RED CELL DISTRIBUTION WIDTH 14.7 % (11.5-14.5); WHITE BLOOD COUNT 7.3 x10^3/uL (4.0-11.0)
[2019-06-23 09:18] LABS: ALBUMIN 2.1 g/dL (3.4-5.0); ALBUMIN/GLOBULIN RATIO 0.5 (1.0-1.7); CALCIUM 8.2 mg/dL (8.5-10.1); CREATININE 1.5 mg/dL (0.6-1.0); GFR 32.7; POTASSIUM 3.1 mmol/L (3.5-5.1); TOTAL BILIRUBIN 0.3 mg/dL (0.2-1.0); TOTAL PROTEIN 6.2 g/dL (6.4-8.2)
[2019-06-23] MEDS ORDERED: POTASSIUM CHLORIDE 20 MEQ TABLET.ER. PO ONE ×2 (10:00→12:00)
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
[2019-06-23] MEDS: HYDROcodone/APAP 5/325MG 1 TAB TABLET PO PRN ×2 (11:22→19:36)
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
[2019-06-23 15:38] VITALS: BP 111/72
[2019-06-23] MEDS: ALBUTEROL SULFATE 2.5 MG/3 ML NEBU. NEB PRN (15:48)
[2019-06-23] MEDS: PATCH REMOVAL. MC SCH (19:35)
[2019-06-23] MEDS: ATORVASTATIN CALCIUM 10 MG TABLET. PO SCH (19:36)
[2019-06-23] MEDS: risperiDONE 0.5 MG TABLET. PO SCH (19:37)
--- NOTE | 2019-06-23 21:57 | PDOC ---
Exam Note: Zachary Note: Please also refer to the separate dictated note~for this date of service dictated separately.~Patient seen individually. Discussed the patient with Nursing staff reviewed the chart.~Reviewed interim history and current functioning. Reviewed vital signs,~Labs/ Radiology~and current medications noted below. Continue current treatment with the changes noted in the dictated addendum note Assessment: Vital Signs/I&O: Vital Signs Date Time Temp Pulse Resp B/P (MAP) Pulse Ox O2 Delivery O2 Flow Rate FiO2 06/23/19 19:36 20 Room Air 06/23/19 15:38 97.8 84 111/72 (85) 95 06/19/19 06:24 2.0 I & O 06/22/19 06/22/19 06/23/19 15:00 23:00 07:00 Intake Total 960 ml 360 ml Balance 960 ml 360 ml Labs: Laboratory Tests Test 06/23/19 08:57 White Blood Count 7.3 x10^3/uL (4.0-11.0) Red Blood Count 3.76 x10^6/uL (3.50-5.40) Hemoglobin 12.0 g/dL (12.0-15.5) Hematocrit 36.0 % (36.0-47.0) Mean Corpuscular Volume 96 fL (79-100) Mean Corpuscular Hemoglobin 32 pg (25-35) Mean Corpuscular Hemoglobin Concent 33 g/dL (31-37) Red Cell Distribution Width 14.7 % (11.5-14.5) H Platelet Count 203 x10^3/uL (140-400) Neutrophils (%) (Auto) 49 % (31-73) Lymphocytes (%) (Auto) 31 % (24-48) Monocytes (%) (Auto) 14 % (0-9) H Eosinophils (%) (Auto) 5 % (0-3) H Basophils (%) (Auto) 1 % (0-3) Neutrophils # (Auto) 3.6 x10^3uL (1.8-7.7) Lymphocytes # (Auto) 2.3 x10^3/uL (1.0-4.8) Monocytes # (Auto) 1.0 x10^3/uL (0.0-1.1) Eosinophils # (Auto) 0.4 x10^3/uL (0.0-0.7) Basophils # (Auto) 0.1 x10^3/uL (0.0-0.2) Sodium Level 138 mmol/L (136-145) Potassium Level 3.1 mmol/L (3.5-5.1) L Chloride Level 98 mmol/L (98-107) Carbon Dioxide Level 36 mmol/L (21-32) H Anion Gap 4 (6-14) L Blood Urea Nitrogen 28 mg/dL (7-20) H Creatinine 1.5 mg/dL (0.6-1.0) H Estimated GFR (Cockcroft-Gault) 32.7 BUN/Creatinine Ratio 19 (6-20) Glucose Level 105 mg/dL (70-99) H Calcium Level 8.2 mg/dL (8.5-10.1) L Total Bilirubin 0.3 mg/dL (0.2-1.0) Aspartate Amino Transferase (AST) 17 U/L (15-37) Alanine Aminotransferase (ALT) 11 U/L (14-59) L Alkaline Phosphatase 67 U/L (46-116) Total Protein 6.2 g/dL (6.4-8.2) L Albumin 2.1 g/dL (3.4-5.0) L Albumin/Globulin Ratio 0.5 (1.0-1.7) L Current Medications: Meds: Current Medications Medications (Trade) Dose Ordered Sig/Daisy Route PRN Reason Start Time Stop Time Status Last Admin Dose Admin Potassium Chloride (Klor-Con) 40 meq 1X ONCE PO 06/23/19 12:00 06/23/19 12:01 DC 06/23/19 11:22 I have reviewed the current psychotropics carefully including drug interactions. Risk benefit ratio favors no change other than as noted in my dictated progress note. Diagnosis: Problems: (1) Schizoaffective disorder, bipolar type (2) Bipolar 1 disorder, mixed, moderate (3) Anxiety disorder (4) Impulse control disorder ANDREA COY MD Jun 23, 2019 21:57
[2019-06-24 05:52] VITALS: BP 120/68
[2019-06-24 06:11] LABS: CALCIUM 8.2 mg/dL (8.5-10.1); CREATININE 1.5 mg/dL (0.6-1.0); GFR 32.7; POTASSIUM 3.7 mmol/L (3.5-5.1)
[2019-06-24] MEDS: APIXABAN 2.5 MG TABLET PO SCH ×2 (08:58→19:54)
[2019-06-24] MEDS: LACTOBACILLUS RHAMNOSUS GG 1 CAPSULE. PO SCH (08:58)
[2019-06-24] MEDS: IPRATROPIUM/ALBUTEROL 20/100mcg/INH INHALER. INH SCH ×4 (08:59→20:01)
[2019-06-24] MEDS: DIVALPROEX 125 MG CAP.SPRINK PO SCH ×2 (08:59→19:54)
[2019-06-24] MEDS: TORSEMIDE 20 MG TABLET. PO SCH ×2 (08:59→16:35)
[2019-06-24] MEDS: POLYETHYLENE GLYCOL 3350 17 GM PACKET. PO SCH (08:59)
--- NOTE | 2019-06-24 10:37 | PDOC ---
Exam Note: Zachary Note: S/O: This note is a late entry for DOS 06/23/2019 covers elements not covered in my initial note. We have had exposure of COVID-19 on the unit consequent to a staff member. The unit was on lockdown per [facility] of [facility] and [facility] ([facility])/Centers for Disease Control (CDC). Three patients had dev eloped fever and other symptoms for which they were screened for the COVID-19, two of which have come back negative, result for one is awaited and one other patient today is running a fever and we are doing a COVID-19 screen for this patient. Per regulations from the [facility], we are unable to admit or discharge any patients, still all of this is negative and the length of stay has affected not entirely by the clinical situation but by this directive additionally from the [facility]/CDC. The patient was seen on TeleHealth rounds coordinated by Dulce Maria QUINONES in the evening. Discussed the patient with nursing staff, reviewed the chart. Nursing report was with Kalli QUINONES in the morning. Patient slept 7-1/4 hours previous night. Overall the patient has been doing better per nursing report. She has been sitting quite close to another male patient but very appropriate, friendly, less paranoid about her , less fixated that he has been abusing her. ROS: Positive for some tiredness. No CV, , Pulmonary, Eye system symptoms on review. MSE: Reasonably oriented. Speech coherent has some latency. Abstraction fair. Computation impaired. Language function intact. Mood and affect has improved. She was smiling, verbally interactive during our audio-visual visit in the evening. Labs: Reviewed. 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 Anxiety disorder unspecified. Psychotic disorder unspecified. Plan: Continue psychotropics from initial note. Depakote 250 mg a.m. and 500 mg h.s. Level therapeutic at 56, Risperdal 0.75 mg h.s. Adjust further as clinically indicated. Assessment: Vital Signs/I&O: Vital Signs Date Time Temp Pulse Resp B/P (MAP) Pulse Ox O2 Delivery O2 Flow Rate FiO2 06/24/19 05:52 97.5 82 18 120/68 (85) 93 06/23/19 20:36 Room Air 06/19/19 06:24 2.0 I & O 06/23/19 06/23/19 06/24/19 15:00 23:00 07:00 Intake Total 960 ml 480 ml Balance 960 ml 480 ml Labs: Laboratory Tests Test 06/24/19 05:42 Sodium Level 140 mmol/L (136-145) Potassium Level 3.7 mmol/L (3.5-5.1) Chloride Level 99 mmol/L (98-107) Carbon Dioxide Level 37 mmol/L (21-32) H Anion Gap 4 (6-14) L Blood Urea Nitrogen 29 mg/dL (7-20) H Creatinine 1.5 mg/dL (0.6-1.0) H Estimated GFR (Cockcroft-Gault) 32.7 Glucose Level 84 mg/dL (70-99) Calcium Level 8.2 mg/dL (8.5-10.1) L Current Medications: Meds: Current Medications Medications (Trade) Dose Ordered Sig/Daisy Route PRN Reason Start Time Stop Time Status Last Admin Dose Admin Potassium Chloride (Klor-Con) 40 meq 1X ONCE PO 06/23/19 12:00 06/23/19 12:01 DC 06/23/19 11:22 I have reviewed the current psychotropics carefully including drug interactions. Risk benefit ratio favors no change other than as noted in my dictated progress note. Diagnosis: Problems: (1) Schizoaffective disorder, bipolar type (2) Bipolar 1 disorder, mixed, moderate (3) Anxiety disorder (4) Impulse control disorder ANDREA COY MD Jun 24, 2019 10:37
[2019-06-24] MEDS: ACETAMINOPHEN 500 MG TABLET PO PRN (11:38)
[2019-06-24 15:58] VITALS: BP 114/73
[2019-06-24] MEDS: ALBUTEROL SULFATE 2.5 MG/3 ML NEBU. NEB PRN (19:53)
[2019-06-24] MEDS: risperiDONE 0.5 MG TABLET. PO SCH (19:54)
[2019-06-24] MEDS: HYDROcodone/APAP 5/325MG 1 TAB TABLET PO PRN (19:55)
[2019-06-24] MEDS: ATORVASTATIN CALCIUM 10 MG TABLET. PO SCH (19:55)
[2019-06-24] MEDS: PATCH REMOVAL. MC SCH (21:00)
--- NOTE | 2019-06-24 22:01 | PDOC ---
Exam Note: Zachary Note: Please also refer to the separate dictated note~for this date of service dictated separately.~Patient seen individually. Discussed the patient with Nursing staff reviewed the chart.~Reviewed interim history and current functioning. Reviewed vital signs,~Labs/ Radiology~and current medications noted below. Continue current treatment with the changes noted in the dictated addendum note Assessment: Vital Signs/I&O: Vital Signs Date Time Temp Pulse Resp B/P (MAP) Pulse Ox O2 Delivery O2 Flow Rate FiO2 06/24/19 21:00 Room Air 06/24/19 18:30 98.2 06/24/19 15:58 82 18 114/73 (87) 96 06/19/19 06:24 2.0 I & O 06/23/19 06/23/19 06/24/19 15:00 23:00 07:00 Intake Total 960 ml 480 ml Balance 960 ml 480 ml Labs: Laboratory Tests Test 06/24/19 05:42 Sodium Level 140 mmol/L (136-145) Potassium Level 3.7 mmol/L (3.5-5.1) Chloride Level 99 mmol/L (98-107) Carbon Dioxide Level 37 mmol/L (21-32) H Anion Gap 4 (6-14) L Blood Urea Nitrogen 29 mg/dL (7-20) H Creatinine 1.5 mg/dL (0.6-1.0) H Estimated GFR (Cockcroft-Gault) 32.7 Glucose Level 84 mg/dL (70-99) Calcium Level 8.2 mg/dL (8.5-10.1) L Current Medications: I have reviewed the current psychotropics carefully including drug interactions. Risk benefit ratio favors no change other than as noted in my dictated progress note. Diagnosis: Problems: (1) Schizoaffective disorder, bipolar type (2) Bipolar 1 disorder, mixed, moderate (3) Anxiety disorder (4) Impulse control disorder ANDREA COY MD Jun 24, 2019 22:01
[2019-06-25 06:11] VITALS: BP 95/58
[2019-06-25 07:13] LABS: CALCIUM 8.5 mg/dL (8.5-10.1); CREATININE 1.5 mg/dL (0.6-1.0); GFR 32.7; POTASSIUM 3.6 mmol/L (3.5-5.1)
[2019-06-25] MEDS: POLYETHYLENE GLYCOL 3350 17 GM PACKET. PO SCH (08:14)
[2019-06-25] MEDS: HYDROcodone/APAP 5/325MG 1 TAB TABLET PO PRN ×2 (08:14→15:01)
[2019-06-25] MEDS: DIVALPROEX 125 MG CAP.SPRINK PO SCH ×2 (08:15→19:46)
[2019-06-25] MEDS: LACTOBACILLUS RHAMNOSUS GG 1 CAPSULE. PO SCH (08:15)
[2019-06-25] MEDS: APIXABAN 2.5 MG TABLET PO SCH ×2 (08:15→19:48)
[2019-06-25] MEDS: TORSEMIDE 20 MG TABLET. PO SCH ×2 (08:15→17:32)
[2019-06-25] MEDS: IPRATROPIUM/ALBUTEROL 20/100mcg/INH INHALER. INH SCH ×4 (08:16→19:46)
--- NOTE | 2019-06-25 12:56 | PDOC ---
Exam Note: Zachary Note: S/O: This note is a late entry for DOS 06/24/2019 covers elements not covered in my initial note. We are still waiting on the COVID-19 screen on two patients before the unit can be opened for admissions and discharges per the [facility] and [facility] ([facility])/Centers for Disease Control (CDC). Discussed the patient with nursing staff, reviewed the chart. Treatment team meeting was done in the morning with social service staff [facility], Dulce Maria QUINONES, nursing staff and myself. The patient was seen on audio- visual rounds in the evening with Lay QUINONES. At the treatment team meeting we addressed discharge plans. Her calls on a consistent basis and we will encourage him to talk to her to get a sense if she is still paranoid about him. If she refuses to talk we will make her own assessment. I am going to be trying to use this as a way to adjust her Risperdal further which is currently at 0.75 mg h.s. adequate for her age and general health condition. UA on the 06/18/2019 showed mixed sarah. No treatment. ROS: Ambulation impaired in wheelchair. No CV, , Pulmonary, Eye system symptoms on review. MSE: Reasonably oriented. Speech coherent. Abstraction fair. Computation impaired. Language function intact. Mood and affect less labile, less paranoid, less anxious. Labs: Reviewed. 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 Anxiety disorder unspecified. Psychotic disorder unspecified. Plan: No change from initial note but we may need to increase Risperdal depending on how she does with the telephone conversation with her reflective of her paranoia. Assessment: Vital Signs/I&O: Vital Signs Date Time Temp Pulse Resp B/P (MAP) Pulse Ox O2 Delivery O2 Flow Rate FiO2 06/25/19 10:30 14 06/25/19 06:11 97.5 102 95/58 (70) 93 06/24/19 21:00 Room Air I & O 06/24/19 06/24/19 06/25/19 15:00 23:00 07:00 Intake Total 360 ml 450 ml Balance 360 ml 450 ml Labs: Laboratory Tests Test 06/25/19 06:43 Sodium Level 139 mmol/L (136-145) Potassium Level 3.6 mmol/L (3.5-5.1) Chloride Level 99 mmol/L (98-107) Carbon Dioxide Level 34 mmol/L (21-32) H Anion Gap 6 (6-14) Blood Urea Nitrogen 27 mg/dL (7-20) H Creatinine 1.5 mg/dL (0.6-1.0) H Estimated GFR (Cockcroft-Gault) 32.7 Glucose Level 99 mg/dL (70-99) Calcium Level 8.5 mg/dL (8.5-10.1) Current Medications: I have reviewed the current psychotropics carefully including drug interactions. Risk benefit ratio favors no change other than as noted in my dictated progress note. Diagnosis: Problems: (1) Schizoaffective disorder, bipolar type (2) Bipolar 1 disorder, mixed, moderate (3) Anxiety disorder (4) Impulse control disorder ANDREA COY MD Jun 25, 2019 12:56
[2019-06-25 16:19] VITALS: BP 121/60
[2019-06-25] MEDS: ACETAMINOPHEN 500 MG TABLET PO PRN (19:47)
[2019-06-25] MEDS: ATORVASTATIN CALCIUM 10 MG TABLET. PO SCH (19:47)
[2019-06-25] MEDS: risperiDONE 0.5 MG TABLET. PO SCH (19:48)
[2019-06-25] MEDS: PATCH REMOVAL. MC SCH (21:00)
--- NOTE | 2019-06-25 22:03 | PDOC ---
Exam Note: Zachary Note: Please also refer to the separate dictated note~for this date of service dictated separately.~Patient seen individually. Discussed the patient with Nursing staff reviewed the chart.~Reviewed interim history and current functioning. Reviewed vital signs,~Labs/ Radiology~and current medications noted below. Continue current treatment with the changes noted in the dictated addendum note Assessment: Vital Signs/I&O: Vital Signs Date Time Temp Pulse Resp B/P (MAP) Pulse Ox O2 Delivery O2 Flow Rate FiO2 06/25/19 16:19 98.0 77 20 121/60 (80) 97 06/24/19 21:00 Room Air I & O 06/24/19 06/24/19 06/25/19 15:00 23:00 07:00 Intake Total 360 ml 450 ml Balance 360 ml 450 ml Labs: Laboratory Tests Test 06/25/19 06:43 Sodium Level 139 mmol/L (136-145) Potassium Level 3.6 mmol/L (3.5-5.1) Chloride Level 99 mmol/L (98-107) Carbon Dioxide Level 34 mmol/L (21-32) H Anion Gap 6 (6-14) Blood Urea Nitrogen 27 mg/dL (7-20) H Creatinine 1.5 mg/dL (0.6-1.0) H Estimated GFR (Cockcroft-Gault) 32.7 Glucose Level 99 mg/dL (70-99) Calcium Level 8.5 mg/dL (8.5-10.1) Current Medications: I have reviewed the current psychotropics carefully including drug interactions. Risk benefit ratio favors no change other than as noted in my dictated progress note. Diagnosis: Problems: (1) Schizoaffective disorder, bipolar type (2) Bipolar 1 disorder, mixed, moderate (3) Anxiety disorder (4) Impulse control disorder ANDREA COY MD Jun 25, 2019 22:02
[2019-06-26 05:52] VITALS: BP 97/50
[2019-06-26] MEDS: ACETAMINOPHEN 500 MG TABLET PO PRN (06:39)
[2019-06-26 06:57] LABS: CALCIUM 8.4 mg/dL (8.5-10.1); CREATININE 1.5 mg/dL (0.6-1.0); GFR 32.7; POTASSIUM 3.7 mmol/L (3.5-5.1)
[2019-06-26] MEDS: IPRATROPIUM/ALBUTEROL 20/100mcg/INH INHALER. INH SCH ×4 (08:00→19:55)
[2019-06-26] MEDS: DIVALPROEX 125 MG CAP.SPRINK PO SCH ×2 (08:46→19:56)
[2019-06-26] MEDS: POLYETHYLENE GLYCOL 3350 17 GM PACKET. PO SCH (08:46)
[2019-06-26] MEDS: LACTOBACILLUS RHAMNOSUS GG 1 CAPSULE. PO SCH (08:46)
[2019-06-26] MEDS: APIXABAN 2.5 MG TABLET PO SCH ×2 (08:46→19:55)
[2019-06-26] MEDS: TORSEMIDE 20 MG TABLET. PO SCH ×2 (09:00→17:14)
[2019-06-26] MEDS: HYDROcodone/APAP 5/325MG 1 TAB TABLET PO PRN ×2 (12:49→19:55)
[2019-06-26 16:12] VITALS: BP 150/75
[2019-06-26] MEDS: ATORVASTATIN CALCIUM 10 MG TABLET. PO SCH (19:55)
[2019-06-26] MEDS: risperiDONE 0.5 MG TABLET. PO SCH (19:56)
[2019-06-26] MEDS: PATCH REMOVAL. MC SCH (19:56)
--- NOTE | 2019-06-26 21:47 | PDOC ---
Exam Note: Zachary Note: S/O: This note is a late entry for DOS 06/25/2019 covers elements not covered in my initial note. Discussed the patient with nursing staff, reviewed the chart. The patient was seen on audio-visual rounds in the evening with Noah QUINONES and nursing report with Dulce Maria QUINONES. She has done well. Reportedly she had a conversation with her on the phone previous evening but her never called back to give feedback on the conversation. Patient nevertheless appears less paranoid as I processed with her in the evening of 06/25/2019. She was not paranoid about her denied that he was trying to kill her or steal from her and had a smile on her as she addressed this. ROS: Ambulation impaired in wheelchair. No CV, , Pulmonary, Eye system symptoms on review. MSE: Reasonably oriented. Speech coherent. Abstraction fair. Computation impaired. Language function intact. Mood and affect less labile paranoid. Labs: Reviewed. 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 Anxiety disorder unspecified. Psychotic disorder unspecified. Plan: Continue psychotropics unchanged from initial note. Assessment: Vital Signs/I&O: Vital Signs Date Time Temp Pulse Resp B/P (MAP) Pulse Ox O2 Delivery O2 Flow Rate FiO2 06/26/19 16:12 98.2 87 20 150/75 (100) 92 06/26/19 08:35 Room Air I & O 06/25/19 06/25/19 06/26/19 15:00 23:00 07:00 Intake Total 480 ml 480 ml Balance 480 ml 480 ml Labs: Laboratory Tests Test 06/26/19 06:25 Sodium Level 138 mmol/L (136-145) Potassium Level 3.7 mmol/L (3.5-5.1) Chloride Level 99 mmol/L (98-107) Carbon Dioxide Level 33 mmol/L (21-32) H Anion Gap 6 (6-14) Blood Urea Nitrogen 26 mg/dL (7-20) H Creatinine 1.5 mg/dL (0.6-1.0) H Estimated GFR (Cockcroft-Gault) 32.7 Glucose Level 93 mg/dL (70-99) Calcium Level 8.4 mg/dL (8.5-10.1) L Current Medications: I have reviewed the current psychotropics carefully including drug interactions. Risk benefit ratio favors no change other than as noted in my dictated progress note. Diagnosis: Problems: (1) Schizoaffective disorder, bipolar type (2) Bipolar 1 disorder, mixed, moderate (3) Anxiety disorder (4) Impulse control disorder ANDREA COY MD Jun 26, 2019 21:47
--- NOTE | 2019-06-26 22:00 | PDOC ---
Exam Note: Zachary Note: Please also refer to the separate dictated note~for this date of service dictated separately.~Patient seen individually. Discussed the patient with Nursing staff reviewed the chart.~Reviewed interim history and current functioning. Reviewed vital signs,~Labs/ Radiology~and current medications noted below. Continue current treatment with the changes noted in the dictated addendum note Assessment: Vital Signs/I&O: Vital Signs Date Time Temp Pulse Resp B/P (MAP) Pulse Ox O2 Delivery O2 Flow Rate FiO2 06/26/19 16:12 98.2 87 20 150/75 (100) 92 06/26/19 08:35 Room Air I & O 06/25/19 06/25/19 06/26/19 15:00 23:00 07:00 Intake Total 480 ml 480 ml Balance 480 ml 480 ml Labs: Laboratory Tests Test 06/26/19 06:25 Sodium Level 138 mmol/L (136-145) Potassium Level 3.7 mmol/L (3.5-5.1) Chloride Level 99 mmol/L (98-107) Carbon Dioxide Level 33 mmol/L (21-32) H Anion Gap 6 (6-14) Blood Urea Nitrogen 26 mg/dL (7-20) H Creatinine 1.5 mg/dL (0.6-1.0) H Estimated GFR (Cockcroft-Gault) 32.7 Glucose Level 93 mg/dL (70-99) Calcium Level 8.4 mg/dL (8.5-10.1) L Current Medications: I have reviewed the current psychotropics carefully including drug interactions. Risk benefit ratio favors no change other than as noted in my dictated progress note. Diagnosis: Problems: (1) Schizoaffective disorder, bipolar type (2) Bipolar 1 disorder, mixed, moderate (3) Anxiety disorder (4) Impulse control disorder ANDREA COY MD Jun 26, 2019 22:00
[2019-06-27 06:04] VITALS: BP 112/68
[2019-06-27] MEDS: IPRATROPIUM/ALBUTEROL 20/100mcg/INH INHALER. INH SCH ×4 (08:28→20:10)
[2019-06-27] MEDS: TORSEMIDE 20 MG TABLET. PO SCH ×2 (08:28→17:13)
[2019-06-27] MEDS: DIVALPROEX 125 MG CAP.SPRINK PO SCH ×2 (08:28→20:05)
[2019-06-27] MEDS: APIXABAN 2.5 MG TABLET PO SCH ×2 (08:28→20:05)
[2019-06-27] MEDS: POLYETHYLENE GLYCOL 3350 17 GM PACKET. PO SCH (08:28)
[2019-06-27] MEDS: LACTOBACILLUS RHAMNOSUS GG 1 CAPSULE. PO SCH (08:28)
[2019-06-27] MEDS: HYDROcodone/APAP 5/325MG 1 TAB TABLET PO PRN (08:34)
[2019-06-27 16:02] VITALS: BP 118/74
[2019-06-27] MEDS: ATORVASTATIN CALCIUM 10 MG TABLET. PO SCH (20:05)
[2019-06-27] MEDS: risperiDONE 0.5 MG TABLET. PO SCH (20:05)
[2019-06-27] MEDS: ACETAMINOPHEN 500 MG TABLET PO PRN (20:10)
[2019-06-27] MEDS: PATCH REMOVAL. MC SCH (20:10)
[2019-06-28 06:19] VITALS: BP 116/67
[2019-06-28] MEDS: IPRATROPIUM/ALBUTEROL 20/100mcg/INH INHALER. INH SCH ×4 (08:19→20:40)
[2019-06-28] MEDS: APIXABAN 2.5 MG TABLET PO SCH ×2 (08:20→20:40)
[2019-06-28] MEDS: POLYETHYLENE GLYCOL 3350 17 GM PACKET. PO SCH (08:20)
[2019-06-28] MEDS: DIVALPROEX 125 MG CAP.SPRINK PO SCH ×2 (08:21→20:41)
[2019-06-28] MEDS: TORSEMIDE 20 MG TABLET. PO SCH ×2 (08:21→16:23)
[2019-06-28] MEDS: LACTOBACILLUS RHAMNOSUS GG 1 CAPSULE. PO SCH (08:21)
[2019-06-28] MEDS: ACETAMINOPHEN 500 MG TABLET PO PRN ×2 (08:27→16:23)
--- NOTE | 2019-06-28 08:33 | PDOC ---
Exam Note: Zachary Note: S/O: This note is a late entry for DOS 06/26/2019 covers elements not covered in my initial note. Discussed the patient with nursing staff, reviewed the chart. The patient was seen on audio-visual rounds in the evening with Noah QUINONES. Nursing report with Linnette QUINONES. She slept 7-3/4 hours previous night. Rep ortedly she has talked to her Prem and has been much less paranoid. I addressed this with her at length in the evening during the audio-visual call and she was much more accepting of Prem being her , having children, does not believe he is going to hurt her, much less paranoid and psychotic. ROS: Ambulation impaired in wheelchair. No CV, , Pulmonary, Eye system s ymptoms on review. MSE: Reasonably oriented. Speech coherent. Abstraction fair. Computation impaired. Language function intact. Mood and affect less labile paranoid. Labs: Reviewed. 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 Anxiety disorder unspecified. Psychotic disorder unspecified. Plan: Continue psychotropics unchanged from initial note. Assessment: Vital Signs/I&O: Vital Signs Date Time Temp Pulse Resp B/P (MAP) Pulse Ox O2 Delivery O2 Flow Rate FiO2 06/28/19 06:19 98.4 87 18 116/67 (83) 93 06/26/19 21:00 Room Air I & O 06/27/19 06/27/19 06/28/19 15:00 23:00 07:00 Intake Total 960 ml 240 ml 120 ml Balance 960 ml 240 ml 120 ml Current Medications: I have reviewed the current psychotropics carefully including drug interactions. Risk benefit ratio favors no change other than as noted in my dictated progress note. Diagnosis: Problems: (1) Schizoaffective disorder, bipolar type (2) Bipolar 1 disorder, mixed, moderate (3) Anxiety disorder (4) Impulse control disorder ANDREA COY MD Jun 28, 2019 08:33
--- NOTE | 2019-06-28 08:58 | PDOC ---
Exam Note: Zachary Note: S/O: This note is a late entry for DOS 06/27/2019 covers elements not covered in my initial note. Discussed the patient with nursing staff, reviewed the chart. The patient was seen on audio-visual rounds in the evening with Frannie QUINONES. Nursing report with Tera QUINONES. She has talked to her Prem today and has been quite pleasant about it, not paranoid or suspicious about him. ROS: Ambulation impaired in wheelchair. No CV, , Pulmonary, Eye system symptoms on review. MSE: Reasonably oriented. Speech coherent. Abstraction fair. Computation impaired. Language function intact. Mood and affect less labile paranoid. Labs: Reviewed. 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 Anxiety disorder unspecified. Psychotic disorder unspecified. Plan: Continue psychotropics unchanged from initial note. Assessment: Vital Signs/I&O: Vital Signs Date Time Temp Pulse Resp B/P (MAP) Pulse Ox O2 Delivery O2 Flow Rate FiO2 06/28/19 06:19 98.4 87 18 116/67 (83) 93 06/26/19 21:00 Room Air I & O 06/27/19 06/27/19 06/28/19 15:00 23:00 07:00 Intake Total 960 ml 240 ml 120 ml Balance 960 ml 240 ml 120 ml Current Medications: I have reviewed the current psychotropics carefully including drug interactions. Risk benefit ratio favors no change other than as noted in my dictated progress note. Diagnosis: Problems: (1) Schizoaffective disorder, bipolar type (2) Bipolar 1 disorder, mixed, moderate (3) Anxiety disorder (4) Impulse control disorder ANDREA COY MD Jun 28, 2019 08:58
[2019-06-28 15:42] VITALS: BP 151/75
[2019-06-28] MEDS: HYDROcodone/APAP 5/325MG 1 TAB TABLET PO PRN (20:40)
[2019-06-28] MEDS: risperiDONE 0.5 MG TABLET. PO SCH (20:42)
[2019-06-28] MEDS: ATORVASTATIN CALCIUM 10 MG TABLET. PO SCH (20:42)
[2019-06-28] MEDS: PATCH REMOVAL. MC SCH (20:43)
[2019-06-28] MEDS: LIDOCAINE (700MG/PATCH) PATCH. TD PRN (20:50)
--- NOTE | 2019-06-28 22:13 | PDOC ---
Exam Note: Zachary Note: Please also refer to the separate dictated note~for this date of service dictated separately.~Patient seen individually. Discussed the patient with Nursing staff reviewed the chart.~Reviewed interim history and current functioning. Reviewed vital signs,~Labs/ Radiology~and current medications noted below. Continue current treatment with the changes noted in the dictated addendum note Assessment: Vital Signs/I&O: Vital Signs Date Time Temp Pulse Resp B/P (MAP) Pulse Ox O2 Delivery O2 Flow Rate FiO2 06/28/19 20:40 96 06/28/19 15:42 98.2 81 16 151/75 (100) Room Air I & O 06/27/19 06/27/19 06/28/19 15:00 23:00 07:00 Intake Total 960 ml 240 ml 120 ml Balance 960 ml 240 ml 120 ml Current Medications: I have reviewed the current psychotropics carefully including drug interactions. Risk benefit ratio favors no change other than as noted in my dictated progress note. Diagnosis: Problems: (1) Schizoaffective disorder, bipolar type (2) Bipolar 1 disorder, mixed, moderate (3) Anxiety disorder (4) Impulse control disorder ANDREA COY MD Jun 28, 2019 22:13
[2019-06-29 06:20] VITALS: BP 110/68
[2019-06-29] MEDS: IPRATROPIUM/ALBUTEROL 20/100mcg/INH INHALER. INH SCH ×4 (06:23→19:22)
[2019-06-29] MEDS: HYDROcodone/APAP 5/325MG 1 TAB TABLET PO PRN ×3 (06:41→19:21)
[2019-06-29] MEDS: LACTOBACILLUS RHAMNOSUS GG 1 CAPSULE. PO SCH (08:29)
[2019-06-29] MEDS: APIXABAN 2.5 MG TABLET PO SCH ×2 (08:29→19:21)
[2019-06-29] MEDS: DIVALPROEX 125 MG CAP.SPRINK PO SCH ×2 (08:29→19:22)
[2019-06-29] MEDS: TORSEMIDE 20 MG TABLET. PO SCH ×2 (08:29→16:09)
[2019-06-29] MEDS: POLYETHYLENE GLYCOL 3350 17 GM PACKET. PO SCH (08:30)
[2019-06-29] MEDS: ALBUTEROL SULFATE 2.5 MG/3 ML NEBU. NEB PRN (09:35)
[2019-06-29 15:44] VITALS: BP 124/74
[2019-06-29] MEDS ORDERED: FUROSEMIDE 80 MG TABLET PO ONE (18:30)
[2019-06-29] MEDS: ACETAMINOPHEN 500 MG TABLET PO PRN (19:21)
[2019-06-29] MEDS: risperiDONE 0.5 MG TABLET. PO SCH (19:21)
[2019-06-29] MEDS: ATORVASTATIN CALCIUM 10 MG TABLET. PO SCH (19:22)
[2019-06-29] MEDS: PATCH REMOVAL. MC SCH (21:00)
--- NOTE | 2019-06-29 21:48 | PDOC ---
Exam Note: Zachary Note: Please also refer to the separate dictated note~for this date of service dictated separately.~Patient seen individually. Discussed the patient with Nursing staff reviewed the chart.~Reviewed interim history and current functioning. Reviewed vital signs,~Labs/ Radiology~and current medications noted below. Continue current treatment with the changes noted in the dictated addendum note Assessment: Vital Signs/I&O: Vital Signs Date Time Temp Pulse Resp B/P (MAP) Pulse Ox O2 Delivery O2 Flow Rate FiO2 06/29/19 20:50 92 06/29/19 15:44 98.5 82 18 124/74 (91) Room Air I & O 06/28/19 06/28/19 06/29/19 15:00 23:00 07:00 Intake Total 480 ml 480 ml Balance 480 ml 480 ml Current Medications: Meds: Current Medications Medications (Trade) Dose Ordered Sig/Daisy Route PRN Reason Start Time Stop Time Status Last Admin Dose Admin Albuterol/ Ipratropium (Combivent Respimat 20-100 Mcg) 1 puff RTQID INH 06/29/19 12:00 06/29/19 19:22 Furosemide (Lasix) 80 mg 1X ONCE PO 06/29/19 18:30 06/29/19 18:31 DC 06/29/19 18:21 I have reviewed the current psychotropics carefully including drug interactions. Risk benefit ratio favors no change other than as noted in my dictated progress note. Diagnosis: Problems: (1) Schizoaffective disorder, bipolar type (2) Bipolar 1 disorder, mixed, moderate (3) Anxiety disorder (4) Impulse control disorder ANDREA COY MD Jun 29, 2019 21:48
[2019-06-30 06:22] VITALS: BP 109/71
--- NOTE | 2019-06-30 07:54 | PDOC ---
Exam Note: Zachary Note: S/O: This note is a late entry for DOS 06/28/2019 covers elements not covered in my initial note. Discussed the patient with nursing staff, reviewed the chart. The patient was seen on audio-visual rounds in the evening with Elsa QUINONES. Nursing report with Lay QUINONES. She slept 7-1/2 hours. She has been somewhat demanding, wanting pain pills, complains of pain in her feet. ROS: Ambulation impaired in wheelchair. No CV, , Eye system symptoms on review. MSE: Reasonably alert and oriented. She did have a conversation with her Dequan and this seemed to go better. She has been up in the dayroom during the day. Speech coherent. Abstraction fair. Computation impaired. Language function intact. Mood and affect less paranoid. Labs: Reviewed. 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 Anxiety disorder unspecified. Psychotic disorder unspecified. Plan: Continue psychotropics unchanged from initial note. Assessment: Vital Signs/I&O: VS - Last 72 Hours, by Label Date Time Temp Pulse Resp B/P (MAP) Pulse Ox O2 Delivery O2 Flow Rate FiO2 06/30/19 06:22 97.6 83 20 109/71 (84) 95 06/29/19 20:50 92 06/29/19 19:21 92 06/29/19 16:09 92 06/29/19 15:44 98.5 82 18 124/74 (91) 92 Room Air 06/29/19 14:52 93 06/29/19 07:48 93 06/29/19 06:41 93 06/29/19 06:20 98.1 79 20 110/68 (82) 93 06/28/19 23:01 96 06/28/19 20:40 96 06/28/19 15:42 98.2 81 16 151/75 (100) 96 Room Air 06/28/19 06:19 98.4 87 18 116/67 (83) 93 06/27/19 16:02 97.5 81 18 118/74 (89) 96 06/27/19 09:34 20 Vital Signs Date Time Temp Pulse Resp B/P (MAP) Pulse Ox O2 Delivery O2 Flow Rate FiO2 06/30/19 06:22 97.6 83 20 109/71 (84) 95 06/29/19 15:44 Room Air I & O 06/29/19 06/29/19 06/30/19 15:00 23:00 07:00 Intake Total 720 ml 360 ml Balance 720 ml 360 ml Current Medications: Meds: Current Medications Medications (Trade) Dose Ordered Sig/Daisy Route PRN Reason Start Time Stop Time Status Last Admin Dose Admin Albuterol/ Ipratropium (Combivent Respimat 20-100 Mcg) 1 puff RTQID INH 06/29/19 12:00 06/29/19 19:22 Furosemide (Lasix) 80 mg 1X ONCE PO 06/29/19 18:30 06/29/19 18:31 DC 06/29/19 18:21 I have reviewed the current psychotropics carefully including drug interactions. Risk benefit ratio favors no change other than as noted in my dictated progress note. Diagnosis: Problems: (1) Schizoaffective disorder, bipolar type (2) Bipolar 1 disorder, mixed, moderate (3) Anxiety disorder (4) Impulse control disorder ANDREA COY MD Jun 30, 2019 07:54
--- NOTE | 2019-06-30 08:13 | PDOC ---
Exam Note: Zachary Note: S/O: This note is a late entry for DOS 06/29/2019 covers elements not covered in my initial note. Discussed the patient with nursing staff, reviewed the chart. The patient was seen on audio-visual rounds in the evening with Noah QUINONES. Nursing report with Lay QUINONES. She slept 7-1/2 hours. She has had some wheezing. We will defer to Dr. Rosales from medical standpoint. ROS: Ambulation impaired in wheelchair. . She still complains of pain in her feet. No CV, , Pulmonary, Eye system symptoms on review. MSE: Alert and oriented. She was quite verbal, interactive, smiling, generally expressing appreciation of the staff assisting her. Reportedly she has had another conversation with her and this seemed to be going better. Speech coherent. Abstraction fair. Computation impaired. Language function intact. Mood and affect less paranoid. Labs: Reviewed. 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 Anxiety disorder unspecified. Psychotic disorder unspecified. Plan: Continue psychotropics unchanged from initial note. Assessment: Vital Signs/I&O: Vital Signs Date Time Temp Pulse Resp B/P (MAP) Pulse Ox O2 Delivery O2 Flow Rate FiO2 06/30/19 06:22 97.6 83 20 109/71 (84) 95 06/29/19 15:44 Room Air I & O 06/29/19 06/29/19 06/30/19 15:00 23:00 07:00 Intake Total 720 ml 360 ml Balance 720 ml 360 ml Current Medications: Meds: Current Medications Medications (Trade) Dose Ordered Sig/Daisy Route PRN Reason Start Time Stop Time Status Last Admin Dose Admin Albuterol/ Ipratropium (Combivent Respimat 20-100 Mcg) 1 puff RTQID INH 06/29/19 12:00 06/29/19 19:22 Furosemide (Lasix) 80 mg 1X ONCE PO 06/29/19 18:30 06/29/19 18:31 DC 06/29/19 18:21 I have reviewed the current psychotropics carefully including drug interactions. Risk benefit ratio favors no change other than as noted in my dictated progress note. Diagnosis: Problems: (1) Schizoaffective disorder, bipolar type (2) Bipolar 1 disorder, mixed, moderate (3) Anxiety disorder (4) Impulse control disorder ANDREA COY MD Jun 30, 2019 08:13
[2019-06-30] MEDS: LACTOBACILLUS RHAMNOSUS GG 1 CAPSULE. PO SCH (08:19)
[2019-06-30] MEDS: TORSEMIDE 20 MG TABLET. PO SCH ×2 (08:19→16:06)
[2019-06-30] MEDS: DIVALPROEX 125 MG CAP.SPRINK PO SCH ×2 (08:20→20:08)
[2019-06-30] MEDS: APIXABAN 2.5 MG TABLET PO SCH ×2 (08:20→20:07)
[2019-06-30] MEDS: HYDROcodone/APAP 5/325MG 1 TAB TABLET PO PRN ×2 (08:20→16:15)
[2019-06-30] MEDS: POLYETHYLENE GLYCOL 3350 17 GM PACKET. PO SCH (08:21)
[2019-06-30] MEDS: ALBUTEROL SULFATE 8GM INHALER. INH PRN ×3 (08:21→16:09)
[2019-06-30] MEDS: IPRATROPIUM/ALBUTEROL 20/100mcg/INH INHALER. INH SCH ×4 (08:23→20:09)
--- NOTE | 2019-06-30 09:18 | RAD ---
EXAM: Chest, single view. HISTORY: Wheezing. Crackles. COMPARISON: 06/16/2019. FINDINGS: A frontal view of the chest is obtained. There is no infiltrate, pleural effusion or pneumothorax. The heart is normal in size. IMPRESSION: No acute pulmonary finding. Electronically signed by: Mary Jane Pfeiffer MD (06/30/2019 9:15 AM) [facility]
--- NOTE | 2019-06-30 15:17 | TX PLAN ---
Interdisciplinary Tx Plan Admission Information Jun 04, 2019 at 16:03 Legal Status (on Admission): Voluntary DPOA/Guardian Name: Dequan Concepcion Contact Verified Code Status: DNR Allergies: Coded Allergies: prednisone (Verified Allergy, Intermediate, 03/20/16) Sulfa (Sulfonamide Antibiotics) (Verified Allergy, Unknown, 06/04/19) budesonide (Verified Allergy, Unknown, 06/04/19) procaine (Verified Allergy, Unknown, 06/04/19) Estimated Length of Stay: 14 Diagnoses Primary Diagnosis: Bipolar I D/O, probable mixed with psychotic features, Anxiety D/O (unspecified), Impulsive Control D/O Reasons for Admission: Delusions, Agitated, Confusion/Disoriented, Poor impulse control Problem in Patient's Words: Pt believes that pt is purposely putting on a front to cover up her forgetfulness. Problems Active Problems: According to the intake, pt is refusing medications, agitated (worse at HS), insomnia, stopped taking meds believing it was poison, aggressive towards staff, trying to leave the house, paranoid Inactive Problems: Pt. is compliant with medication and cooperative with cares. Pt Strengths/Limitations Ability for [place]: Poor Cognitive Functioning/Ability: Poor Communication Skills/Ability: Poor Financial Resources: Fair Insight/Judgement: Poor Intellectual Ability: Poor Physical Health: Poor Social Skills: Fair Stability in Family: Good Stability in School/Work: Poor Verbal Skills: Fair Discharge Criteria Discharge Criteria: Able meet basic life need, No need for close observ., Able to meet health needs, OP monitor medical prob, Adequate arrangements @DC, Verbal commit aftercare, Adequate self-care, Verbal commit med comply, Improved behavior, Improved mood/thought Preliminary Discharge Plan Preliminary DC Plan: Current Living Arrange. Special Precautions Special Precautions: Agitation/Assault Fall Risk: Moderate Initial D/C Plan Per pt , he wants pt to return home with him and have services. Identified Discharge Needs: Community services and services for continued psychiatric follow-up. Follow Up with PCP Currently Utilized Resources Currently Utilized Resources/P: PCP Referrals Community Resources: Psychiatry, community support for behavioral health nursing Identified Problems/Hx/Goals Objectives/Short-Term Goals Short Term Goals: Dec. Hallucination/Delus, Dec. 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 Education: [employer] school Community Follow-up Follow Up with PCP Treatment Plan Explained Patient/Color Separation Photographer had this treatment plan explained to him/her as indicated by the signature below and has been given the opportunity to ask questions and make suggestions: Date: Patient/Color Separation Photographer Signature: Status Update Update Pt is eating roughly 50% of meals and sleeping on average 5 hours a night. Pt is calm, pleasant and compliant with all cares and medications. Pt has 3 plus pitting edema to her LE. Pt appears to be therapeutic with her Depakote and at this time, she will plan to discharge home with her . Due to the current events on the unit of [facility]-, the unit remains on quarantine and will look at discharging within the next two weeks. SW will continue to follow up with pt family and ensure that services will be set up. KENDALL COLIN Jun 30, 2019 15:17
[2019-06-30 15:54] VITALS: BP 128/74
[2019-06-30 19:58] VITALS: BP 142/76
[2019-06-30] MEDS: ATORVASTATIN CALCIUM 10 MG TABLET. PO SCH (20:07)
[2019-06-30] MEDS: risperiDONE 0.5 MG TABLET. PO SCH (20:07)
[2019-06-30] MEDS: PATCH REMOVAL. MC SCH (20:10)
--- NOTE | 2019-06-30 22:08 | PDOC ---
Exam Note: Zachary Note: Please also refer to the separate dictated note~for this date of service dictated separately.~Patient seen individually. Discussed the patient with Nursing staff reviewed the chart.~Reviewed interim history and current functioning. Reviewed vital signs,~Labs/ Radiology~and current medications noted below. Continue current treatment with the changes noted in the dictated addendum note Assessment: Vital Signs/I&O: Vital Signs Date Time Temp Pulse Resp B/P (MAP) Pulse Ox O2 Delivery O2 Flow Rate FiO2 06/30/19 19:58 94 20 142/76 (98) 92 Room Air 06/30/19 15:54 98.1 I & O 06/29/19 06/29/19 06/30/19 15:00 23:00 07:00 Intake Total 720 ml 360 ml Balance 720 ml 360 ml Current Medications: I have reviewed the current psychotropics carefully including drug interactions. Risk benefit ratio favors no change other than as noted in my dictated progress note. Diagnosis: Problems: (1) Schizoaffective disorder, bipolar type (2) Bipolar 1 disorder, mixed, moderate (3) Anxiety disorder (4) Impulse control disorder ANDREA COY MD Jun 30, 2019 22:08
[2019-07-01 06:06] VITALS: BP 116/70
[2019-07-01 06:10] LABS: BASO % 1 % (0-3); EOS # 0.4 x10^3/uL (0.0-0.7); EOS % 6 % (0-3); HEMATOCRIT 35.3 % (36.0-47.0); HEMOGLOBIN 11.8 g/dL (12.0-15.5); LYMPH # 2.7 x10^3/uL (1.0-4.8); LYMPH % 37 % (24-48); MEAN CORPUSCULAR HEMOGLOBIN 32 pg (25-35); MEAN CORPUSCULAR HGB CONC 33 g/dL (31-37); MEAN CORPUSCULAR VOLUME 96 fL (79-100); MONO # 1.2 x10^3/uL (0.0-1.1); MONO % 17 % (0-9); NEUT % 40 % (31-73); PLATELET COUNT 218 x10^3/uL (140-400); RED BLOOD COUNT 3.67 x10^6/uL (3.50-5.40); RED CELL DISTRIBUTION WIDTH 15.4 % (11.5-14.5); WHITE BLOOD COUNT 7.4 x10^3/uL (4.0-11.0)
[2019-07-01 06:25] LABS: ALBUMIN 2.2 g/dL (3.4-5.0); ALBUMIN/GLOBULIN RATIO 0.6 (1.0-1.7); CALCIUM 8.1 mg/dL (8.5-10.1); CREATININE 1.4 mg/dL (0.6-1.0); GFR 35.4; POTASSIUM 3.3 mmol/L (3.5-5.1); TOTAL BILIRUBIN 0.3 mg/dL (0.2-1.0); TOTAL PROTEIN 6.1 g/dL (6.4-8.2)
[2019-07-01] MEDS: IPRATROPIUM/ALBUTEROL 20/100mcg/INH INHALER. INH SCH ×4 (08:11→19:59)
[2019-07-01] MEDS: POLYETHYLENE GLYCOL 3350 17 GM PACKET. PO SCH (08:11)
[2019-07-01] MEDS: LACTOBACILLUS RHAMNOSUS GG 1 CAPSULE. PO SCH (08:12)
[2019-07-01] MEDS: TORSEMIDE 20 MG TABLET. PO SCH ×2 (08:12→16:24)
[2019-07-01] MEDS: APIXABAN 2.5 MG TABLET PO SCH ×2 (08:12→20:00)
[2019-07-01] MEDS: DIVALPROEX 125 MG CAP.SPRINK PO SCH ×2 (08:12→19:59)
--- NOTE | 2019-07-01 09:51 | PDOC ---
Exam Note: Zachary Note: S/O: This note is a late entry for DOS 06/30/2019 covers elements not covered in my initial note. Discussed the patient with nursing staff, reviewed the chart. The patient was seen on audio-visual rounds in the evening with Elsa QUINONES. Nursing report with Elsa QUINONES. The patient has had some wheezing and crackles in her chest but chest x-ray is negative. I will defer her to Dr. Abdi. ROS: Ambulation impaired in wheelchair. No CV, , Eye system symptoms on review. She has had some shortness of breath. MSE: Reasonably oriented. Speech coherent. Abstraction fair. Computation impaired. Language function intact. Attention span is short. Right before I met with her she was talking to her Dequan on the telephone and was quite interactive, appropriate, much less paranoid and delusional. She was able to state she is and has children which is quite an improvement for her. Labs: Reviewed. 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 Anxiety disorder unspecified. Psychotic disorder unspecified. Plan: Continue psychotropics from initial note. Assessment: Vital Signs/I&O: Vital Signs Date Time Temp Pulse Resp B/P (MAP) Pulse Ox O2 Delivery O2 Flow Rate FiO2 07/01/19 06:06 98.3 94 20 116/70 (85) 92 06/30/19 19:58 Room Air I & O 06/30/19 06/30/19 07/01/19 15:00 23:00 07:00 Intake Total 480 ml 480 ml Balance 480 ml 480 ml Labs: Laboratory Tests Test 07/01/19 06:00 White Blood Count 7.4 x10^3/uL (4.0-11.0) Red Blood Count 3.67 x10^6/uL (3.50-5.40) Hemoglobin 11.8 g/dL (12.0-15.5) L Hematocrit 35.3 % (36.0-47.0) L Mean Corpuscular Volume 96 fL (79-100) Mean Corpuscular Hemoglobin 32 pg (25-35) Mean Corpuscular Hemoglobin Concent 33 g/dL (31-37) Red Cell Distribution Width 15.4 % (11.5-14.5) H Platelet Count 218 x10^3/uL (140-400) Neutrophils (%) (Auto) 40 % (31-73) Lymphocytes (%) (Auto) 37 % (24-48) Monocytes (%) (Auto) 17 % (0-9) H Eosinophils (%) (Auto) 6 % (0-3) H Basophils (%) (Auto) 1 % (0-3) Neutrophils # (Auto) 3.0 x10^3uL (1.8-7.7) Lymphocytes # (Auto) 2.7 x10^3/uL (1.0-4.8) Monocytes # (Auto) 1.2 x10^3/uL (0.0-1.1) H Eosinophils # (Auto) 0.4 x10^3/uL (0.0-0.7) Basophils # (Auto) 0.0 x10^3/uL (0.0-0.2) Sodium Level 137 mmol/L (136-145) Potassium Level 3.3 mmol/L (3.5-5.1) L Chloride Level 98 mmol/L (98-107) Carbon Dioxide Level 34 mmol/L (21-32) H Anion Gap 5 (6-14) L Blood Urea Nitrogen 21 mg/dL (7-20) H Creatinine 1.4 mg/dL (0.6-1.0) H Estimated GFR (Cockcroft-Gault) 35.4 BUN/Creatinine Ratio 15 (6-20) Glucose Level 86 mg/dL (70-99) Calcium Level 8.1 mg/dL (8.5-10.1) L Total Bilirubin 0.3 mg/dL (0.2-1.0) Aspartate Amino Transferase (AST) 18 U/L (15-37) Alanine Aminotransferase (ALT) 11 U/L (14-59) L Alkaline Phosphatase 78 U/L (46-116) Total Protein 6.1 g/dL (6.4-8.2) L Albumin 2.2 g/dL (3.4-5.0) L Albumin/Globulin Ratio 0.6 (1.0-1.7) L Current Medications: I have reviewed the current psychotropics carefully including drug interactions. Risk benefit ratio favors no change other than as noted in my dictated progress note. Diagnosis: Problems: (1) Schizoaffective disorder, bipolar type (2) Bipolar 1 disorder, mixed, moderate (3) Anxiety disorder (4) Impulse control disorder ANDREA COY MD Jul 01, 2019 09:51
[2019-07-01] MEDS: HYDROcodone/APAP 5/325MG 1 TAB TABLET PO PRN (14:13)
[2019-07-01 15:48] VITALS: BP 114/70
[2019-07-01] MEDS: LIDOCAINE (700MG/PATCH) PATCH. TD PRN (19:59)
[2019-07-01] MEDS: risperiDONE 0.5 MG TABLET. PO SCH (19:59)
[2019-07-01] MEDS: PATCH REMOVAL. MC SCH (19:59)
[2019-07-01] MEDS: ACETAMINOPHEN 500 MG TABLET PO PRN (19:59)
[2019-07-01] MEDS: ATORVASTATIN CALCIUM 10 MG TABLET. PO SCH (19:59)
[2019-07-01] MEDS ORDERED: POTASSIUM CHLORIDE 20 MEQ TABLET.ER. PO ONE (20:00)
--- NOTE | 2019-07-01 22:09 | PDOC ---
Exam Note: Zachary Note: Please also refer to the separate dictated note~for this date of service dictated separately.~Patient seen individually. Discussed the patient with Nursing staff reviewed the chart.~Reviewed interim history and current functioning. Reviewed vital signs,~Labs/ Radiology~and current medications noted below. Continue current treatment with the changes noted in the dictated addendum note Assessment: Vital Signs/I&O: Vital Signs Date Time Temp Pulse Resp B/P (MAP) Pulse Ox O2 Delivery O2 Flow Rate FiO2 07/01/19 15:48 98.4 80 18 114/70 (85) 95 06/30/19 19:58 Room Air I & O 06/30/19 06/30/19 07/01/19 15:00 23:00 07:00 Intake Total 480 ml 480 ml Balance 480 ml 480 ml Labs: Laboratory Tests Test 07/01/19 06:00 White Blood Count 7.4 x10^3/uL (4.0-11.0) Red Blood Count 3.67 x10^6/uL (3.50-5.40) Hemoglobin 11.8 g/dL (12.0-15.5) L Hematocrit 35.3 % (36.0-47.0) L Mean Corpuscular Volume 96 fL (79-100) Mean Corpuscular Hemoglobin 32 pg (25-35) Mean Corpuscular Hemoglobin Concent 33 g/dL (31-37) Red Cell Distribution Width 15.4 % (11.5-14.5) H Platelet Count 218 x10^3/uL (140-400) Neutrophils (%) (Auto) 40 % (31-73) Lymphocytes (%) (Auto) 37 % (24-48) Monocytes (%) (Auto) 17 % (0-9) H Eosinophils (%) (Auto) 6 % (0-3) H Basophils (%) (Auto) 1 % (0-3) Neutrophils # (Auto) 3.0 x10^3uL (1.8-7.7) Lymphocytes # (Auto) 2.7 x10^3/uL (1.0-4.8) Monocytes # (Auto) 1.2 x10^3/uL (0.0-1.1) H Eosinophils # (Auto) 0.4 x10^3/uL (0.0-0.7) Basophils # (Auto) 0.0 x10^3/uL (0.0-0.2) Sodium Level 137 mmol/L (136-145) Potassium Level 3.3 mmol/L (3.5-5.1) L Chloride Level 98 mmol/L (98-107) Carbon Dioxide Level 34 mmol/L (21-32) H Anion Gap 5 (6-14) L Blood Urea Nitrogen 21 mg/dL (7-20) H Creatinine 1.4 mg/dL (0.6-1.0) H Estimated GFR (Cockcroft-Gault) 35.4 BUN/Creatinine Ratio 15 (6-20) Glucose Level 86 mg/dL (70-99) Calcium Level 8.1 mg/dL (8.5-10.1) L Total Bilirubin 0.3 mg/dL (0.2-1.0) Aspartate Amino Transferase (AST) 18 U/L (15-37) Alanine Aminotransferase (ALT) 11 U/L (14-59) L Alkaline Phosphatase 78 U/L (46-116) Total Protein 6.1 g/dL (6.4-8.2) L Albumin 2.2 g/dL (3.4-5.0) L Albumin/Globulin Ratio 0.6 (1.0-1.7) L Current Medications: Meds: Current Medications Medications (Trade) Dose Ordered Sig/Daisy Route PRN Reason Start Time Stop Time Status Last Admin Dose Admin Potassium Chloride (Klor-Con) 40 meq 1X ONCE PO 07/01/19 20:00 07/01/19 20:02 DC 07/01/19 20:01 I have reviewed the current psychotropics carefully including drug interactions. Risk benefit ratio favors no change other than as noted in my dictated progress note. Diagnosis: Problems: (1) Schizoaffective disorder, bipolar type (2) Bipolar 1 disorder, mixed, moderate (3) Anxiety disorder (4) Impulse control disorder ANDREA COY MD Jul 01, 2019 22:08
[2019-07-02 06:12] VITALS: BP 136/80
[2019-07-02] MEDS: LACTOBACILLUS RHAMNOSUS GG 1 CAPSULE. PO SCH (08:26)
[2019-07-02] MEDS: DIVALPROEX 125 MG CAP.SPRINK PO SCH ×2 (08:26→19:40)
[2019-07-02] MEDS: TORSEMIDE 20 MG TABLET. PO SCH ×2 (08:26→17:01)
[2019-07-02] MEDS: POTASSIUM CHLORIDE 20 MEQ TABLET.ER. PO SCH (08:27)
[2019-07-02] MEDS: IPRATROPIUM/ALBUTEROL 20/100mcg/INH INHALER. INH SCH ×4 (08:27→19:41)
[2019-07-02] MEDS: POLYETHYLENE GLYCOL 3350 17 GM PACKET. PO SCH (08:27)
[2019-07-02] MEDS: APIXABAN 2.5 MG TABLET PO SCH ×2 (08:27→19:40)
[2019-07-02 15:51] VITALS: BP 122/77
[2019-07-02] MEDS: HYDROcodone/APAP 5/325MG 1 TAB TABLET PO PRN ×2 (17:02→19:47)
[2019-07-02] MEDS: PATCH REMOVAL. MC SCH (19:32)
[2019-07-02] MEDS: ATORVASTATIN CALCIUM 10 MG TABLET. PO SCH (19:41)
[2019-07-02] MEDS: risperiDONE 0.5 MG TABLET. PO SCH (21:00)
--- NOTE | 2019-07-02 22:14 | PDOC ---
Exam Note: Zachary Note: Please also refer to the separate dictated note~for this date of service dictated separately.~Patient seen individually. Discussed the patient with Nursing staff reviewed the chart.~Reviewed interim history and current functioning. Reviewed vital signs,~Labs/ Radiology~and current medications noted below. Continue current treatment with the changes noted in the dictated addendum note Assessment: Vital Signs/I&O: Vital Signs Date Time Temp Pulse Resp B/P (MAP) Pulse Ox O2 Delivery O2 Flow Rate FiO2 07/02/19 21:00 Room Air 07/02/19 15:51 98.5 85 16 122/77 (92) 96 I & O 07/01/19 07/01/19 07/02/19 15:00 23:00 07:00 Intake Total 720 ml 340 ml Balance 720 ml 340 ml Current Medications: Meds: Current Medications Medications (Trade) Dose Ordered Sig/Daisy Route PRN Reason Start Time Stop Time Status Last Admin Dose Admin Potassium Chloride (Klor-Con) 20 meq [id number] PO 07/02/19 08:00 07/02/19 08:27 I have reviewed the current psychotropics carefully including drug interactions. Risk benefit ratio favors no change other than as noted in my dictated progress note. Diagnosis: Problems: (1) Schizoaffective disorder, bipolar type (2) Bipolar 1 disorder, mixed, moderate (3) Anxiety disorder (4) Impulse control disorder ANDREA COY MD Jul 02, 2019 22:14
[2019-07-03 05:35] VITALS: BP 111/63
[2019-07-03] MEDS: DIVALPROEX 125 MG CAP.SPRINK PO SCH ×2 (07:54→19:57)
[2019-07-03] MEDS: LACTOBACILLUS RHAMNOSUS GG 1 CAPSULE. PO SCH (07:54)
[2019-07-03] MEDS: IPRATROPIUM/ALBUTEROL 20/100mcg/INH INHALER. INH SCH ×4 (07:54→20:02)
[2019-07-03] MEDS: APIXABAN 2.5 MG TABLET PO SCH ×2 (07:54→19:58)
[2019-07-03] MEDS: POTASSIUM CHLORIDE 20 MEQ TABLET.ER. PO SCH (07:54)
[2019-07-03] MEDS: TORSEMIDE 20 MG TABLET. PO SCH ×2 (07:55→15:25)
[2019-07-03] MEDS: POLYETHYLENE GLYCOL 3350 17 GM PACKET. PO SCH (07:55)
--- NOTE | 2019-07-03 07:55 | PDOC ---
Exam Note: Zachary Note: S/O: This note is a late entry for DOS 07/01/2019 covers elements not covered in my initial note. Discussed the patient with treatment team meeting with the entire team in the morning including Albaro, social service staff, nursing staff, and myself reviewed the chart. Also met with the patient indiv idually in the evening on audio-visual rounds. Nursing report was with Roselyn QUINONES. I have been informed that every patient will be tested in sequence for COVID-19 and disposition plans would be determined by the result of the testing. She slept 7 hours previous night, somewhat anxious, needy at breakfast time. She is compliant with medications, pleasant. She talks to her almost every day and has been pleasant, cooperative. I questioned her on this at length in the evening and she denied any paranoia regarding the or that he was trying to kill her or steal from her. In fact she is getting along well. We will await feedback from the on all of this. ROS: Ambulation impaired in wheelchair. No CV, , Eye system symptoms on review. MSE: Reasonably oriented. She is pleasant, cooperative. Speech coherent. Abstraction fair. Computation impaired. Language function intact. Attention span is short. Labs: Reviewed. Her albumin is low. 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 Anxiety disorder unspecified. Psychotic disorder unspecified. Plan: Continue psychotropics from initial note. Assessment: Vital Signs/I&O: Vital Signs Date Time Temp Pulse Resp B/P (MAP) Pulse Ox O2 Delivery O2 Flow Rate FiO2 07/03/19 05:35 97.7 87 18 111/63 (79) 94 Room Air I & O 0 07/02/19 07/02/19 07/03/19 15:00 23:00 07:00 Intake Total 660 ml 240 ml Balance 660 ml 240 ml Current Medications: Meds: Current Medications Medications (Trade) Dose Ordered Sig/Daisy Route PRN Reason Start Time Stop Time Status Last Admin Dose Admin Potassium Chloride (Klor-Con) 20 meq [id number] PO 07/02/19 08:00 07/02/19 08:27 I have reviewed the current psychotropics carefully including drug interactions. Risk benefit ratio favors no change other than as noted in my dictated progress note. Diagnosis: Problems: (1) Schizoaffective disorder, bipolar type (2) Bipolar 1 disorder, mixed, moderate (3) Anxiety disorder (4) Impulse control disorder ANDREA CYO MD Jul 03, 2019 07:55
[2019-07-03 15:17] VITALS: BP 121/60
[2019-07-03] MEDS: HYDROcodone/APAP 5/325MG 1 TAB TABLET PO PRN (15:25)
[2019-07-03] MEDS: ATORVASTATIN CALCIUM 10 MG TABLET. PO SCH (19:57)
[2019-07-03] MEDS: risperiDONE 0.5 MG TABLET. PO SCH (19:57)
[2019-07-03] MEDS: ACETAMINOPHEN 500 MG TABLET PO PRN (20:02)
[2019-07-03] MEDS: PATCH REMOVAL. MC SCH (20:02)
--- NOTE | 2019-07-03 22:14 | PDOC ---
Exam Note: Zachary Note: Please also refer to the separate dictated note~for this date of service dictated separately.~Patient seen individually. Discussed the patient with Nursing staff reviewed the chart.~Reviewed interim history and current functioning. Reviewed vital signs,~Labs/ Radiology~and current medications noted below. Continue current treatment with the changes noted in the dictated addendum note Assessment: Vital Signs/I&O: Vital Signs Date Time Temp Pulse Resp B/P (MAP) Pulse Ox O2 Delivery O2 Flow Rate FiO2 07/03/19 15:17 98.7 94 121/60 (80) 92 Room Air 07/03/19 05:35 18 I & O 07/02/19 07/02/19 07/03/19 15:00 23:00 07:00 Intake Total 660 ml 240 ml Balance 660 ml 240 ml Current Medications: I have reviewed the current psychotropics carefully including drug interactions. Risk benefit ratio favors no change other than as noted in my dictated progress note. Diagnosis: Problems: (1) Schizoaffective disorder, bipolar type (2) Bipolar 1 disorder, mixed, moderate (3) Anxiety disorder (4) Impulse control disorder ANDREA COY MD Jul 03, 2019 22:14
[2019-07-04] MEDS: HYDROcodone/APAP 5/325MG 1 TAB TABLET PO PRN ×3 (04:54→20:13)
[2019-07-04 05:59] VITALS: BP 144/82
[2019-07-04] MEDS: LACTOBACILLUS RHAMNOSUS GG 1 CAPSULE. PO SCH (07:30)
[2019-07-04] MEDS: TORSEMIDE 20 MG TABLET. PO SCH ×2 (07:30→16:00)
[2019-07-04] MEDS: POTASSIUM CHLORIDE 20 MEQ TABLET.ER. PO SCH (07:30)
[2019-07-04] MEDS: IPRATROPIUM/ALBUTEROL 20/100mcg/INH INHALER. INH SCH ×4 (07:30→20:00)
[2019-07-04] MEDS: DIVALPROEX 125 MG CAP.SPRINK PO SCH ×2 (07:30→20:13)
[2019-07-04] MEDS: APIXABAN 2.5 MG TABLET PO SCH ×2 (07:30→20:14)
[2019-07-04] MEDS: POLYETHYLENE GLYCOL 3350 17 GM PACKET. PO SCH (07:30)
--- NOTE | 2019-07-04 07:57 | PDOC ---
Exam Note: Zachary Note: S/O: This note is a late entry for DOS 07/02/2019 covers elements not covered in my initial note. Discussed the patient with nursing staff, reviewed the chart. Also met with the patient individually in the evening on audio-visual rounds. Nursing report was with Gissell QUINONES. Her COVID throat swab is being completed. She had a long telephone conversation with her , seems much paranoid regarding her , less delusional. Potassium is low, will defer to Dr. Abdi. ROS: Ambulation impaired in wheelchair. No CV, , Pulmonary, Eye system symptoms on review. MSE: Reasonably oriented. She is pleasant, cooperative. Speech coherent. Abstraction fair. Computation impaired. Language function intact. Attention span is short. Labs: Reviewed. 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 Anxiety disorder unspecified. Psychotic disorder unspecified. Plan: Continue psychotropics from initial note. Assessment: Vital Signs/I&O: Vital Signs Date Time Temp Pulse Resp B/P (MAP) Pulse Ox O2 Delivery O2 Flow Rate FiO2 07/04/19 05:59 98.4 105 22 144/82 (102) 93 07/04/19 04:54 Room Air I & O 07/03/19 07/03/19 07/04/19 14:59 22:59 06:59 Intake Total 600 ml 360 ml Balance 600 ml 360 ml Current Medications: I have reviewed the current psychotropics carefully including drug interactions. Risk benefit ratio favors no change other than as noted in my dictated progress note. Diagnosis: Problems: (1) Schizoaffective disorder, bipolar type (2) Bipolar 1 disorder, mixed, moderate (3) Anxiety disorder (4) Impulse control disorder ANDREA COY MD Jul 04, 2019 07:57
--- NOTE | 2019-07-04 08:12 | PDOC ---
Exam Note: Zachary Note: S/O: This note is a late entry for DOS 07/03/2019 covers elements not covered in my initial note. Discussed the patient with nursing staff, reviewed the chart. Also met with the patient individually in the evening on audio-visual rounds. Nursing report was with Gissell QUINONES. COVID-19 test has come back negative. She slept 7 hours. She has been anxious, attention seeking. Reportedly she was on the telephone with her for about 2 hours and seems much less paranoid about her . In fact during audio-visual rounds as I talked to her, she stated her was trying to make her shower which was flat surface rather than her having to step into the tub. She indicated that she was relating well to her and their neighbor is a builder and would do the building of the shower while the stays with the niece and the nephew. She was totally coherent about all of this. Psychosis much improved. ROS: Ambulation impaired in wheelchair. No CV, , Pulmonary, Eye system symptoms on review. She complains of some pain in her heels. She has a blister in her heels receiving special boots for this. MSE: Reasonably oriented. She is pleasant, cooperative. Speech coherent. Abstraction fair. Computation impaired. Language function intact. Attention span is short. Psychosis much improved. Labs: Reviewed. 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 Anxiety disorder unspecified. Psychotic disorder unspecified. Plan: Continue psychotropics from initial note. Assessment: Vital Signs/I&O: Vital Signs Date Time Temp Pulse Resp B/P (MAP) Pulse Ox O2 Delivery O2 Flow Rate FiO2 07/04/19 05:59 98.4 105 22 144/82 (102) 93 07/04/19 04:54 Room Air I & O 07/03/19 07/03/19 07/04/19 15:00 23:00 07:00 Intake Total 600 ml 360 ml Balance 600 ml 360 ml Current Medications: I have reviewed the current psychotropics carefully including drug interactions. Risk benefit ratio favors no change other than as noted in my dictated progress note. Diagnosis: Problems: (1) Schizoaffective disorder, bipolar type (2) Bipolar 1 disorder, mixed, moderate (3) Anxiety disorder (4) Impulse control disorder ANDREA COY MD Jul 04, 2019 08:12
[2019-07-04 15:50] VITALS: BP 120/64
[2019-07-04] MEDS: ALBUTEROL SULFATE 8GM INHALER. INH PRN (20:12)
[2019-07-04] MEDS: ATORVASTATIN CALCIUM 10 MG TABLET. PO SCH (20:12)
[2019-07-04] MEDS: risperiDONE 0.5 MG TABLET. PO SCH (20:13)
[2019-07-04] MEDS: PATCH REMOVAL. MC SCH (20:14)
--- NOTE | 2019-07-04 22:13 | PDOC ---
Exam Note: Zachary Note: Please also refer to the separate dictated note~for this date of service dictated separately.~Patient seen individually. Discussed the patient with Nursing staff reviewed the chart.~Reviewed interim history and current functioning. Reviewed vital signs,~Labs/ Radiology~and current medications noted below. Continue current treatment with the changes noted in the dictated addendum note Assessment: Vital Signs/I&O: Vital Signs Date Time Temp Pulse Resp B/P (MAP) Pulse Ox O2 Delivery O2 Flow Rate FiO2 07/04/19 15:50 98.5 84 18 120/64 (82) 99 07/04/19 04:54 Room Air I & O 07/03/19 07/03/19 07/04/19 15:00 23:00 07:00 Intake Total 600 ml 360 ml Balance 600 ml 360 ml Current Medications: I have reviewed the current psychotropics carefully including drug interactions. Risk benefit ratio favors no change other than as noted in my dictated progress note. Diagnosis: Problems: (1) Schizoaffective disorder, bipolar type (2) Bipolar 1 disorder, mixed, moderate (3) Anxiety disorder (4) Impulse control disorder ANDREA COY MD Jul 04, 2019 22:13
[2019-07-05 05:54] VITALS: BP 111/68
[2019-07-05 07:04] LABS: BASO # 0.1 x10^3/uL (0.0-0.2); BASO % 1 % (0-3); EOS # 0.6 x10^3/uL (0.0-0.7); EOS % 7 % (0-3); HEMATOCRIT 31.8 % (36.0-47.0); HEMOGLOBIN 10.4 g/dL (12.0-15.5); LYMPH # 2.4 x10^3/uL (1.0-4.8); LYMPH % 28 % (24-48); MEAN CORPUSCULAR HEMOGLOBIN 32 pg (25-35); MEAN CORPUSCULAR HGB CONC 33 g/dL (31-37); MEAN CORPUSCULAR VOLUME 98 fL (79-100); MONO # 1.4 x10^3/uL (0.0-1.1); MONO % 17 % (0-9); NEUT % 48 % (31-73); PLATELET COUNT 197 x10^3/uL (140-400); RED BLOOD COUNT 3.25 x10^6/uL (3.50-5.40); WHITE BLOOD COUNT 8.5 x10^3/uL (4.0-11.0)
[2019-07-05 07:20] LABS: ALBUMIN 1.8 g/dL (3.4-5.0); ALBUMIN/GLOBULIN RATIO 0.5 (1.0-1.7); CALCIUM 7.9 mg/dL (8.5-10.1); CREATININE 1.5 mg/dL (0.6-1.0); GFR 32.7; POTASSIUM 3.4 mmol/L (3.5-5.1); TOTAL BILIRUBIN 0.2 mg/dL (0.2-1.0); TOTAL PROTEIN 5.2 g/dL (6.4-8.2)
[2019-07-05] MEDS: IPRATROPIUM/ALBUTEROL 20/100mcg/INH INHALER. INH SCH ×4 (08:12→20:05)
[2019-07-05] MEDS: DIVALPROEX 125 MG CAP.SPRINK PO SCH ×2 (08:13→20:05)
[2019-07-05] MEDS: LACTOBACILLUS RHAMNOSUS GG 1 CAPSULE. PO SCH (08:13)
[2019-07-05] MEDS: TORSEMIDE 20 MG TABLET. PO SCH ×2 (08:13→14:20)
[2019-07-05] MEDS: POTASSIUM CHLORIDE 20 MEQ TABLET.ER. PO SCH (08:13)
[2019-07-05] MEDS: APIXABAN 2.5 MG TABLET PO SCH ×2 (08:13→20:06)
[2019-07-05] MEDS: POLYETHYLENE GLYCOL 3350 17 GM PACKET. PO SCH (08:14)
[2019-07-05] MEDS: HYDROcodone/APAP 5/325MG 1 TAB TABLET PO PRN ×3 (11:03→21:20)
[2019-07-05 16:05] VITALS: BP 149/72
[2019-07-05] MEDS: risperiDONE 0.5 MG TABLET. PO SCH (20:06)
[2019-07-05] MEDS: ATORVASTATIN CALCIUM 10 MG TABLET. PO SCH (20:06)
[2019-07-05] MEDS: PATCH REMOVAL. MC SCH (21:00)
--- NOTE | 2019-07-05 22:25 | PDOC ---
Exam Note: Zachary Note: Please also refer to the separate dictated note~for this date of service dictated separately.~Patient seen individually. Discussed the patient with Nursing staff reviewed the chart.~Reviewed interim history and current functioning. Reviewed vital signs,~Labs/ Radiology~and current medications noted below. Continue current treatment with the changes noted in the dictated addendum note Assessment: Vital Signs/I&O: Vital Signs Date Time Temp Pulse Resp B/P (MAP) Pulse Ox O2 Delivery O2 Flow Rate FiO2 07/05/19 21:44 Room Air 07/05/19 16:05 98.5 98 20 149/72 (97) 92 I & O 07/04/19 07/04/19 07/05/19 15:00 23:00 07:00 Intake Total 480 ml 480 ml 120 ml Balance 480 ml 480 ml 120 ml Labs: Laboratory Tests Test 07/05/19 06:53 White Blood Count 8.5 x10^3/uL (4.0-11.0) Red Blood Count 3.25 x10^6/uL (3.50-5.40) L Hemoglobin 10.4 g/dL (12.0-15.5) L Hematocrit 31.8 % (36.0-47.0) L Mean Corpuscular Volume 98 fL (79-100) Mean Corpuscular Hemoglobin 32 pg (25-35) Mean Corpuscular Hemoglobin Concent 33 g/dL (31-37) Red Cell Distribution Width 16.0 % (11.5-14.5) H Platelet Count 197 x10^3/uL (140-400) Neutrophils (%) (Auto) 48 % (31-73) Lymphocytes (%) (Auto) 28 % (24-48) Monocytes (%) (Auto) 17 % (0-9) H Eosinophils (%) (Auto) 7 % (0-3) H Basophils (%) (Auto) 1 % (0-3) Neutrophils # (Auto) 4.0 x10^3uL (1.8-7.7) Lymphocytes # (Auto) 2.4 x10^3/uL (1.0-4.8) Monocytes # (Auto) 1.4 x10^3/uL (0.0-1.1) H Eosinophils # (Auto) 0.6 x10^3/uL (0.0-0.7) Basophils # (Auto) 0.1 x10^3/uL (0.0-0.2) Sodium Level 141 mmol/L (136-145) Potassium Level 3.4 mmol/L (3.5-5.1) L Chloride Level 102 mmol/L (98-107) Carbon Dioxide Level 36 mmol/L (21-32) H Anion Gap 3 (6-14) L Blood Urea Nitrogen 18 mg/dL (7-20) Creatinine 1.5 mg/dL (0.6-1.0) H Estimated GFR (Cockcroft-Gault) 32.7 BUN/Creatinine Ratio 12 (6-20) Glucose Level 80 mg/dL (70-99) Calcium Level 7.9 mg/dL (8.5-10.1) L Total Bilirubin 0.2 mg/dL (0.2-1.0) Aspartate Amino Transferase (AST) 15 U/L (15-37) Alanine Aminotransferase (ALT) 11 U/L (14-59) L Alkaline Phosphatase 67 U/L (46-116) Total Protein 5.2 g/dL (6.4-8.2) L Albumin 1.8 g/dL (3.4-5.0) L Albumin/Globulin Ratio 0.5 (1.0-1.7) L Current Medications: Meds: Current Medications Medications (Trade) Dose Ordered Sig/Daisy Route PRN Reason Start Time Stop Time Status Last Admin Dose Admin Torsemide (Demadex) 20 mg BID92 PO 07/05/19 09:00 07/05/19 14:20 Risperidone (RisperDAL) 0.5 mg QHS PO 07/05/19 21:00 07/05/19 20:06 I have reviewed the current psychotropics carefully including drug interactions. Risk benefit ratio favors no change other than as noted in my dictated progress note. Diagnosis: Problems: (1) Schizoaffective disorder, bipolar type (2) Bipolar 1 disorder, mixed, moderate (3) Anxiety disorder (4) Impulse control disorder ANDREA COY MD Jul 05, 2019 22:25
[2019-07-06 06:18] VITALS: BP 114/70
--- NOTE | 2019-07-06 07:39 | PDOC ---
Exam Note: Zachary Note: S/O: This note is a late entry for DOS 07/04/2019 covers elements not covered in my initial note. Discussed the patient with nursing staff, reviewed the chart. Also met with the patient individually in the evening on audio-visual rounds with Linnette QUINONES. Nursing report was with Gissell QUINONES. She slept 8 hours. She has been talking to her over the phone and quite animated by the Easter basket. ROS: Ambulation impaired in wheelchair. No CV, , Pulmonary, Eye system symptoms on review. MSE: Reasonably oriented. Speech coherent. Abstraction fair. Computation impaired. Language function intact. Attention span is short. Psychosis much improved. Labs: Reviewed. 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 Anxiety disorder unspecified. Psychotic disorder unspecified. Plan: Continue psychotropics from initial note. Assessment: Vital Signs/I&O: Vital Signs Date Time Temp Pulse Resp B/P (MAP) Pulse Ox O2 Delivery O2 Flow Rate FiO2 07/06/19 06:18 98.0 84 18 114/70 (85) 92 Room Air I & O 07/05/19 07/05/19 07/06/19 15:00 23:00 07:00 Intake Total 600 ml 360 ml Balance 600 ml 360 ml Current Medications: Meds: Current Medications Medications (Trade) Dose Ordered Sig/Daisy Route PRN Reason Start Time Stop Time Status Last Admin Dose Admin Torsemide (Demadex) 20 mg BID92 PO 07/05/19 09:00 07/05/19 14:20 Risperidone (RisperDAL) 0.5 mg QHS PO 07/05/19 21:00 07/05/19 20:06 I have reviewed the current psychotropics carefully including drug interactions. Risk benefit ratio favors no change other than as noted in my dictated progress note. Diagnosis: Problems: (1) Schizoaffective disorder, bipolar type (2) Bipolar 1 disorder, mixed, moderate (3) Anxiety disorder (4) Impulse control disorder ANDREA COY MD Jul 06, 2019 07:39
--- NOTE | 2019-07-06 07:54 | PDOC ---
Exam Note: Zachary Note: S/O: This note is a late entry for DOS 07/05/2019 covers elements not covered in my initial note. Discussed the patient with nursing staff, reviewed the chart. Also met with the patient individually in the evening on audio-visual rounds with Linnette QUINONES. Nursing report was with Lay QUINONES. She slept 8 hours, generally doing well. Again having a long conversation with her , less paranoid. ROS: Ambulation impaired in wheelchair. No CV, , Pulmonary, Eye system symptoms on review. MSE: Reasonably oriented. There is no evidence of overt paranoia, very appropriate, not delusional about her . Speech coherent. Abstraction fair. Computation impaired. Language function intact. Attention span is short. Psychosis much improved. Labs: Reviewed. 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 Anxiety disorder unspecified. Psychotic disorder unspecified. Plan: We will Risperdal from 0.75 mg h.s. to 0.5 mg h.s. Risk-benefit ratio favors this reduction. Assessment: Vital Signs/I&O: Vital Signs Date Time Temp Pulse Resp B/P (MAP) Pulse Ox O2 Delivery O2 Flow Rate FiO2 07/06/19 06:18 98.0 84 18 114/70 (85) 92 Room Air I & O 07/05/19 07/05/19 07/06/19 15:00 23:00 07:00 Intake Total 600 ml 360 ml Balance 600 ml 360 ml Current Medications: Meds: Current Medications Medications (Trade) Dose Ordered Sig/Daisy Route PRN Reason Start Time Stop Time Status Last Admin Dose Admin Torsemide (Demadex) 20 mg BID92 PO 07/05/19 09:00 07/05/19 14:20 Risperidone (RisperDAL) 0.5 mg QHS PO 07/05/19 21:00 07/05/19 20:06 I have reviewed the current psychotropics carefully including drug interactions. Risk benefit ratio favors no change other than as noted in my dictated progress note. Diagnosis: Problems: (1) Schizoaffective disorder, bipolar type (2) Bipolar 1 disorder, mixed, moderate (3) Anxiety disorder (4) Impulse control disorder ANDREA COY MD Jul 06, 2019 07:54
[2019-07-06] MEDS: IPRATROPIUM/ALBUTEROL 20/100mcg/INH INHALER. INH SCH ×4 (08:10→20:04)
[2019-07-06] MEDS: LACTOBACILLUS RHAMNOSUS GG 1 CAPSULE. PO SCH (08:10)
[2019-07-06] MEDS: TORSEMIDE 20 MG TABLET. PO SCH ×2 (08:10→14:09)
[2019-07-06] MEDS: DIVALPROEX 125 MG CAP.SPRINK PO SCH ×2 (08:10→20:06)
[2019-07-06] MEDS: POTASSIUM CHLORIDE 20 MEQ TABLET.ER. PO SCH (08:10)
[2019-07-06] MEDS: APIXABAN 2.5 MG TABLET PO SCH ×2 (08:10→20:06)
[2019-07-06] MEDS: POLYETHYLENE GLYCOL 3350 17 GM PACKET. PO SCH (08:11)
[2019-07-06] MEDS: HYDROcodone/APAP 5/325MG 1 TAB TABLET PO PRN ×2 (10:08→20:06)
[2019-07-06 15:43] VITALS: BP 118/70
[2019-07-06] MEDS: ATORVASTATIN CALCIUM 10 MG TABLET. PO SCH (20:05)
[2019-07-06] MEDS: risperiDONE 0.5 MG TABLET. PO SCH (20:05)
[2019-07-06] MEDS: PATCH REMOVAL. MC SCH (20:06)
--- NOTE | 2019-07-06 21:56 | PDOC ---
Exam Note: Zachary Note: Please also refer to the separate dictated note~for this date of service dictated separately.~Patient seen individually. Discussed the patient with Nursing staff reviewed the chart.~Reviewed interim history and current functioning. Reviewed vital signs,~Labs/ Radiology~and current medications noted below. Continue current treatment with the changes noted in the dictated addendum note Assessment: Vital Signs/I&O: Vital Signs Date Time Temp Pulse Resp B/P (MAP) Pulse Ox O2 Delivery O2 Flow Rate FiO2 07/06/19 20:06 Room Air 07/06/19 15:43 98.1 91 18 118/70 (86) 93 I & O 07/05/19 07/05/19 07/06/19 15:00 23:00 07:00 Intake Total 600 ml 360 ml Balance 600 ml 360 ml Current Medications: I have reviewed the current psychotropics carefully including drug interactions. Risk benefit ratio favors no change other than as noted in my dictated progress note. Diagnosis: Problems: (1) Schizoaffective disorder, bipolar type (2) Bipolar 1 disorder, mixed, moderate (3) Anxiety disorder (4) Impulse control disorder ANDREA COY MD Jul 06, 2019 21:56
[2019-07-07 05:36] VITALS: BP 114/62
[2019-07-07] MEDS: ACETAMINOPHEN 500 MG TABLET PO PRN ×2 (06:03→19:40)
[2019-07-07] MEDS: ALBUTEROL SULFATE 8GM INHALER. INH PRN (06:04)
[2019-07-07] MEDS: LACTOBACILLUS RHAMNOSUS GG 1 CAPSULE. PO SCH (08:13)
[2019-07-07] MEDS: POLYETHYLENE GLYCOL 3350 17 GM PACKET. PO SCH (08:13)
[2019-07-07] MEDS: DIVALPROEX 125 MG CAP.SPRINK PO SCH ×2 (08:13→19:41)
[2019-07-07] MEDS: TORSEMIDE 20 MG TABLET. PO SCH ×2 (08:13→13:15)
[2019-07-07] MEDS: POTASSIUM CHLORIDE 20 MEQ TABLET.ER. PO SCH (08:13)
[2019-07-07] MEDS: APIXABAN 2.5 MG TABLET PO SCH ×2 (08:13→19:41)
[2019-07-07] MEDS: IPRATROPIUM/ALBUTEROL 20/100mcg/INH INHALER. INH SCH ×4 (08:14→19:39)
--- NOTE | 2019-07-07 10:45 | DS ---
DATE OF DISCHARGE: 07/07/2019 DISCHARGE SUMMARY AND PSYCHIATRIC PROGRESS NOTE This note covers elements not covered in my initial note of 07/07/2019. REASON FOR ADMISSION: Please refer to the admission history for details. Briefly, the patient is an 89-year-old female, who returns back to us from [facility] where she spent a few days for medical stabilization after she presented from home with worsening agitation, paranoia, believes her was poisoning her, aggressive with her spouse at home. She had an acute exacerbation of her bipolar disorder, mixed with psychotic features, had failed outpatient psychiatric interventions even after medical stabilization at the [facility], then referred to us for inpatient psychiatric stabilization. SIGNIFICANT FINDINGS AND CLINICAL COURSE: Following admission, the patient was seen daily individually by myself from a psychiatric standpoint. Medical followup with Dr. Abdi/Dr. Rosales. The patient remained extremely paranoid, psychotic, believes she had no and the person who I referred to as her was just the one trying to kill her and steal her belongings. She said she was going to get to an [employer] football player. I will interrupt this dictation at this time because I just had a call from STACIE Atwood, nurse social work case manager on the [facility] indicating the [facility] is not permitting the patient to be discharged home with her today and discharge plans are being withdrawn right now till she completes the quarantine middle of next week. ANDREA COY MD DR: ODALIS/cheyenne JOB#: [id number] / [id number]
[2019-07-07] MEDS: HYDROcodone/APAP 5/325MG 1 TAB TABLET PO PRN (15:12)
[2019-07-07 15:32] VITALS: BP 157/87
[2019-07-07] MEDS: ATORVASTATIN CALCIUM 10 MG TABLET. PO SCH (19:40)
[2019-07-07] MEDS: risperiDONE 0.5 MG TABLET. PO SCH (19:40)
[2019-07-07] MEDS: PATCH REMOVAL. MC SCH (19:42)
[2019-07-07] MEDS: LIDOCAINE (700MG/PATCH) PATCH. TD PRN (20:29)
--- NOTE | 2019-07-07 22:44 | PDOC ---
Exam Note: Zachary Note: S/O: This note is a late entry for DOS 07/06/2019 covers elements not covered in my initial note. This is an addendum to psychiatric progress note for DOS 07/06/2019. Discussed the patient with nursing staff, reviewed the chart. The patient was seen on audio-visual rounds in the evening with Lay QUINONES. Zhane gandhi report was with Lay QUINONES. She slept 8-1/4 hours. Overall the patient has been pleasant, cooperative, very verbal, interactive as I met with her. She had many appropriate questions during the individual audio visual rounds in the evening indicating that they just had a tub shower in their home and that was upstairs but she said her will ultimately get that changed to a walkin- shower but till then she said she could go with cold sponges or not have a shower. She was much less delusional, not paranoid about her which is an improvement but the [facility] of [facility] has postponed the discharge on account of COVID-19 exposure on our unit. ROS: Ambulation impaired in wheelchair. No CV, , Pulmonary, Eye system symptoms on review. MSE: Reasonably oriented. She was less delusional, not paranoid about her which is an improvement. Speech coherent. Abstraction fair. Computation impaired. Language function intact. Attention span is short. Labs: Reviewed. 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 Anxiety disorder unspecified. Psychotic disorder unspecified. Plan: Continue psychotropics unchanged from initial note. Assessment: Vital Signs/I&O: Vital Signs Date Time Temp Pulse Resp B/P (MAP) Pulse Ox O2 Delivery O2 Flow Rate FiO2 07/07/19 16:12 94 07/07/19 15:32 97.5 99 18 157/87 (110) 07/07/19 05:36 Room Air I & O 07/06/19 07/06/19 07/07/19 15:00 23:00 07:00 Intake Total 480 ml 360 ml Balance 480 ml 360 ml Current Medications: I have reviewed the current psychotropics carefully including drug interactions. Risk benefit ratio favors no change other than as noted in my dictated progress note. Diagnosis: Problems: (1) Schizoaffective disorder, bipolar type (2) Bipolar 1 disorder, mixed, moderate (3) Anxiety disorder (4) Impulse control disorder ANDREA COY MD Jul 07, 2019 22:44
--- NOTE | 2019-07-07 22:58 | PDOC ---
Exam Note: Zachary Note: Dictation #[id number]. DOD 07/07/2019 (partial).Please also refer to the separate dictated note~for this date of service dictated separately.~Patient seen individually. Discussed the patient with Nursing staff reviewed the chart.~Reviewed interim history and current functioning. Reviewed vital signs,~Labs/ Radiology~and current medications noted below. Continue current treatment with the changes noted in the dictated addendum note Assessment: Vital Signs/I&O: Vital Signs Date Time Temp Pulse Resp B/P (MAP) Pulse Ox O2 Delivery O2 Flow Rate FiO2 07/07/19 16:12 94 07/07/19 15:32 97.5 99 18 157/87 (110) 07/07/19 05:36 Room Air I & O 07/06/19 07/06/19 07/07/19 15:00 23:00 07:00 Intake Total 480 ml 360 ml Balance 480 ml 360 ml Current Medications: I have reviewed the current psychotropics carefully including drug interactions. Risk benefit ratio favors no change other than as noted in my dictated progress note. Diagnosis: Problems: (1) Schizoaffective disorder, bipolar type (2) Bipolar 1 disorder, mixed, moderate (3) Anxiety disorder (4) Impulse control disorder ANDREA COY MD Jul 07, 2019 22:58
[2019-07-08 06:09] VITALS: BP 101/67
[2019-07-08] MEDS: POLYETHYLENE GLYCOL 3350 17 GM PACKET. PO SCH ×2 (09:00→09:47)
[2019-07-08] MEDS: DIVALPROEX 125 MG CAP.SPRINK PO SCH ×2 (09:29→20:07)
[2019-07-08] MEDS: TORSEMIDE 20 MG TABLET. PO SCH ×2 (09:29→12:53)
[2019-07-08] MEDS: IPRATROPIUM/ALBUTEROL 20/100mcg/INH INHALER. INH SCH ×4 (09:29→20:09)
[2019-07-08] MEDS: POTASSIUM CHLORIDE 20 MEQ TABLET.ER. PO SCH (09:30)
[2019-07-08] MEDS: APIXABAN 2.5 MG TABLET PO SCH ×2 (09:30→20:06)
[2019-07-08] MEDS: LACTOBACILLUS RHAMNOSUS GG 1 CAPSULE. PO SCH (09:30)
[2019-07-08] MEDS: ALBUTEROL SULFATE 8GM INHALER. INH PRN ×2 (09:35→16:56)
[2019-07-08] MEDS: HYDROcodone/APAP 5/325MG 1 TAB TABLET PO PRN ×2 (09:35→16:55)
[2019-07-08] MEDS: PATCH REMOVAL. MC SCH (09:48)
[2019-07-08] MEDS: ACETAMINOPHEN 500 MG TABLET PO PRN (12:53)
[2019-07-08 15:37] VITALS: BP 126/78
[2019-07-08] MEDS: LIDOCAINE (700MG/PATCH) PATCH. TD PRN (20:05)
[2019-07-08] MEDS: ATORVASTATIN CALCIUM 10 MG TABLET. PO SCH (20:07)
[2019-07-08] MEDS: risperiDONE 0.5 MG TABLET. PO SCH (20:07)
--- NOTE | 2019-07-08 22:25 | PDOC ---
Exam Note: Zachary Note: S/O: Dictation # [id number]. This note is a late entry for DOS 07/07/2019 covers elements not covered in my initial note. This is an addendum to psychiatric progress note for DOS 07/07/2019. Discussed the patient with nursing staff, reviewed the chart. The patient was seen on audio-visual rounds in the evening with Noah QUINONES. Nursing report was with Lay QUINONES. She slept 8 hours, did well previous night. She has been appropriate during the day, not manifesting any overt delusions about her wanting to get her to the [employer] Football player Usman Barr. She did express concerns how she would have bath at home since they have a tub and she cannot step into it but indicated her is getting it changed into a flat surface because neighbor is a builder. She is very cognizant to follow this, talking about having a sponge bath if the tub does not work out. ROS: Ambulation impaired in wheelchair. No CV, , Pulmonary, Eye system symptoms on review. MSE: Reasonably oriented. She was less delusional, not paranoid. Speech coherent. Abstraction fair. Computation impaired. Language function intact. Attention span is short. Labs: Reviewed. 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 Anxiety disorder unspecified. Psychotic disorder unspecified. Plan: Continue psychotropics unchanged from initial note. Assessment: Vital Signs/I&O: Vital Signs Date Time Temp Pulse Resp B/P (MAP) Pulse Ox O2 Delivery O2 Flow Rate FiO2 07/08/19 19:52 94 07/08/19 18:13 99.4 07/08/19 15:37 96 18 126/78 (94) Room Air I & O 07/07/19 07/07/19 07/08/19 15:00 23:00 07:00 Intake Total 720 ml 120 ml Balance 720 ml 120 ml Current Medications: I have reviewed the current psychotropics carefully including drug interactions. Risk benefit ratio favors no change other than as noted in my dictated progress note. Diagnosis: Problems: (1) Schizoaffective disorder, bipolar type (2) Bipolar 1 disorder, mixed, moderate (3) Anxiety disorder (4) Impulse control disorder ANDREA COY MD Jul 08, 2019 22:25
--- NOTE | 2019-07-08 22:28 | PDOC ---
Exam Note: Zachary Note: Please also refer to the separate dictated note~for this date of service dictated separately.~Patient seen individually. Discussed the patient with Nursing staff reviewed the chart.~Reviewed interim history and current functioning. Reviewed vital signs,~Labs/ Radiology~and current medications noted below. Continue current treatment with the changes noted in the dictated addendum note Assessment: Vital Signs/I&O: Vital Signs Date Time Temp Pulse Resp B/P (MAP) Pulse Ox O2 Delivery O2 Flow Rate FiO2 07/08/19 19:52 94 07/08/19 18:13 99.4 07/08/19 15:37 96 18 126/78 (94) Room Air I & O 07/07/19 07/07/19 07/08/19 15:00 23:00 07:00 Intake Total 720 ml 120 ml Balance 720 ml 120 ml Current Medications: I have reviewed the current psychotropics carefully including drug interactions. Risk benefit ratio favors no change other than as noted in my dictated progress note. Diagnosis: Problems: (1) Schizoaffective disorder, bipolar type (2) Bipolar 1 disorder, mixed, moderate (3) Anxiety disorder (4) Impulse control disorder ANDREA COY MD Jul 08, 2019 22:28
[2019-07-09 05:44] LABS: BASO % 1 % (0-3); EOS # 0.5 x10^3/uL (0.0-0.7); EOS % 7 % (0-3); HEMATOCRIT 30.7 % (36.0-47.0); LYMPH # 2.4 x10^3/uL (1.0-4.8); LYMPH % 35 % (24-48); MEAN CORPUSCULAR HEMOGLOBIN 32 pg (25-35); MEAN CORPUSCULAR HGB CONC 33 g/dL (31-37); MEAN CORPUSCULAR VOLUME 98 fL (79-100); MONO # 1.3 x10^3/uL (0.0-1.1); MONO % 18 % (0-9); NEUT # 2.7 x10^3uL (1.8-7.7); NEUT % 39 % (31-73); PLATELET COUNT 165 x10^3/uL (140-400); RED BLOOD COUNT 3.14 x10^6/uL (3.50-5.40); RED CELL DISTRIBUTION WIDTH 16.1 % (11.5-14.5); WHITE BLOOD COUNT 6.9 x10^3/uL (4.0-11.0)
[2019-07-09 05:59] LABS: ALBUMIN 1.7 g/dL (3.4-5.0); ALBUMIN/GLOBULIN RATIO 0.5 (1.0-1.7); CALCIUM 7.8 mg/dL (8.5-10.1); CREATININE 1.2 mg/dL (0.6-1.0); GFR 42.3; POTASSIUM 3.3 mmol/L (3.5-5.1); TOTAL BILIRUBIN 0.2 mg/dL (0.2-1.0)
[2019-07-09 06:21] VITALS: BP 156/66
[2019-07-09] MEDS: DIVALPROEX 125 MG CAP.SPRINK PO SCH ×2 (09:06→20:19)
[2019-07-09] MEDS: APIXABAN 2.5 MG TABLET PO SCH ×2 (09:06→20:19)
[2019-07-09] MEDS: ALBUTEROL SULFATE 8GM INHALER. INH PRN ×2 (09:07→15:23)
[2019-07-09] MEDS: TORSEMIDE 20 MG TABLET. PO SCH (09:07)
[2019-07-09] MEDS: POLYETHYLENE GLYCOL 3350 17 GM PACKET. PO SCH (09:07)
[2019-07-09] MEDS: IPRATROPIUM/ALBUTEROL 20/100mcg/INH INHALER. INH SCH ×4 (09:07→20:18)
[2019-07-09] MEDS: LACTOBACILLUS RHAMNOSUS GG 1 CAPSULE. PO SCH (09:07)
[2019-07-09] MEDS: POTASSIUM CHLORIDE 20 MEQ TABLET.ER. PO SCH (09:07)
--- NOTE | 2019-07-09 11:12 | PN ---
DATE: 07/09/2019 SUBJECTIVE: Swollen legs, difficulty walk. She denied any chest pain or palpitations. OBJECTIVE FINDINGS: Her medicines reviewed. VITAL SIGNS: Today showed a blood pressure of 156/66, pulse is 96 and regular. She was afebrile, oxygen saturation 92% on room air. HEENT: Head is without trauma. Pupils are reactive. Sclerae nonicteric. NECK: Supple. Venous pressure is slightly distended at 45 degrees. LUNGS: Minimal crackles at bases. CARDIOVASCULAR: Showed regular heart tones. No gallops. Peripheral pulses palpable. ABDOMEN: Soft, nontender, no masses. EXTREMITIES: Show 4+ pitting edema extending to her knees and into her thighs. LABORATORY DATA: Reviewed. Her creatinine today is 1.2 mg/dL. Hemoglobin is 10.0 grams with a white count of 6900. ASSESSMENT: 1. An 89-year-old female with increased swelling. She has volume overload due to dietary indiscretion. 2. Bipolar 1 disorder. 3. Anxiety disorder. 4. Impulse control disorder. 5. Schizoaffective disorder. RECOMMENDATIONS: 1. I reviewed her medicine list. I would recommend an 80 mg dose of Lasix today and daily in the a.m. in place of her 20 mg of Demadex. 2. Potassium supplementation 20 mEq p.o. daily. 3. Daily weights and recorded. 4. 1200 mL fluid restriction to achieve a net loss of fluids. I estimate 20 pounds of third space fluids. 5. Serial chemistries and basic metabolic panel in the morning. 6. Other home medications reviewed. 7. I shall follow closely along with this patient during her stay in the hospital. Thank you again for asking me to see this patient. KACEY RODRIGUEZ MD DR: RIMA/cheyenne JOB#: [id number] / [id number]
[2019-07-09] MEDS: FUROSEMIDE 80 MG TABLET PO SCH (11:51)
--- NOTE | 2019-07-09 12:20 | TX PLAN ---
Interdisciplinary Tx Plan Admission Information Jun 04, 2019 at 16:03 Legal Status (on Admission): Voluntary DPOA/Guardian Name: Dequan Concepcion Contact Verified Code Status: DNR Allergies: Coded Allergies: prednisone (Verified Allergy, Intermediate, 03/20/16) Sulfa (Sulfonamide Antibiotics) (Verified Allergy, Unknown, 06/04/19) budesonide (Verified Allergy, Unknown, 06/04/19) procaine (Verified Allergy, Unknown, 06/04/19) Estimated Length of Stay: 14 Diagnoses Primary Diagnosis: Bipolar I D/O, probable mixed with psychotic features, Anxiety D/O (unspecified), Impulsive Control D/O Reasons for Admission: Delusions, Agitated, Confusion/Disoriented, Poor impulse control Problem in Patient's Words: Pt believes that pt is purposely putting on a front to cover up her forgetfulness. Problems Active Problems: According to the intake, pt is refusing medications, agitated (worse at HS), insomnia, stopped taking meds believing it was poison, aggressive towards staff, trying to leave the house, paranoid Inactive Problems: Pt. is compliant with medication and cooperative with cares. Pt Strengths/Limitations Ability for [place]: Poor Cognitive Functioning/Ability: Poor Communication Skills/Ability: Poor Financial Resources: Fair Insight/Judgement: Poor Intellectual Ability: Poor Physical Health: Poor Social Skills: Fair Stability in Family: Good Stability in School/Work: Poor Verbal Skills: Fair Discharge Criteria Discharge Criteria: Able meet basic life need, No need for close observ., Able to meet health needs, OP monitor medical prob, Adequate arrangements @DC, Verbal commit aftercare, Adequate self-care, Verbal commit med comply, Improved behavior, Improved mood/thought Preliminary Discharge Plan Preliminary DC Plan: Current Living Arrange. Special Precautions Special Precautions: Agitation/Assault Fall Risk: Moderate Initial D/C Plan Per pt , he wants pt to return home with him and have services. Identified Discharge Needs: Community services and services for continued psychiatric follow-up. Follow Up with PCP Currently Utilized Resources Currently Utilized Resources/P: PCP Referrals Community Resources: Psychiatry, community support for behavioral health nursing Identified Problems/Hx/Goals Objectives/Short-Term Goals Short Term Goals: Dec. Hallucination/Delus, Dec. 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 Pt is medication compliant and mostly pleasant. Pt does have moments where she acts completely helpless with things like toileting and dressing. Pt has been requesting ice water consistently and due to her CHF, she will be placed on a water restriction. Pt has wound care on her left foot and has gauzed wrappings. Pt is wheezing but that is her norm. Pt will plan to return home to her , with services and other DME for safe discharge home. Pt will discharge on . KENDALL COLIN Jul 09, 2019 12:20
[2019-07-09 15:58] VITALS: BP 139/74
[2019-07-09] MEDS: ATORVASTATIN CALCIUM 10 MG TABLET. PO SCH (20:18)
[2019-07-09] MEDS: risperiDONE 0.5 MG TABLET. PO SCH (20:18)
[2019-07-09] MEDS: PATCH REMOVAL. MC SCH (20:19)
[2019-07-09] MEDS: HYDROcodone/APAP 5/325MG 1 TAB TABLET PO PRN (20:28)
[2019-07-09] MEDS ORDERED: POTASSIUM CHLORIDE 20 MEQ TABLET.ER. PO SCH (21:00)
--- NOTE | 2019-07-09 22:00 | PDOC ---
Exam Note: Zachary Note: Please also refer to the separate dictated note~for this date of service dictated separately.~Patient seen individually. Discussed the patient with Nursing staff reviewed the chart.~Reviewed interim history and current functioning. Reviewed vital signs,~Labs/ Radiology~and current medications noted below. Continue current treatment with the changes noted in the dictated addendum note Assessment: Vital Signs/I&O: Vital Signs Date Time Temp Pulse Resp B/P (MAP) Pulse Ox O2 Delivery O2 Flow Rate FiO2 07/09/19 15:58 98.1 70 18 139/74 (95) 96 07/08/19 15:37 Room Air I & O 07/08/19 07/08/19 07/09/19 15:00 23:00 07:00 Intake Total 720 ml 480 ml Balance 720 ml 480 ml Labs: Laboratory Tests Test 07/09/19 05:33 White Blood Count 6.9 x10^3/uL (4.0-11.0) Red Blood Count 3.14 x10^6/uL (3.50-5.40) L Hemoglobin 10.0 g/dL (12.0-15.5) L Hematocrit 30.7 % (36.0-47.0) L Mean Corpuscular Volume 98 fL (79-100) Mean Corpuscular Hemoglobin 32 pg (25-35) Mean Corpuscular Hemoglobin Concent 33 g/dL (31-37) Red Cell Distribution Width 16.1 % (11.5-14.5) H Platelet Count 165 x10^3/uL (140-400) Neutrophils (%) (Auto) 39 % (31-73) Lymphocytes (%) (Auto) 35 % (24-48) Monocytes (%) (Auto) 18 % (0-9) H Eosinophils (%) (Auto) 7 % (0-3) H Basophils (%) (Auto) 1 % (0-3) Neutrophils # (Auto) 2.7 x10^3uL (1.8-7.7) Lymphocytes # (Auto) 2.4 x10^3/uL (1.0-4.8) Monocytes # (Auto) 1.3 x10^3/uL (0.0-1.1) H Eosinophils # (Auto) 0.5 x10^3/uL (0.0-0.7) Basophils # (Auto) 0.0 x10^3/uL (0.0-0.2) Sodium Level 141 mmol/L (136-145) Potassium Level 3.3 mmol/L (3.5-5.1) L Chloride Level 102 mmol/L (98-107) Carbon Dioxide Level 36 mmol/L (21-32) H Anion Gap 3 (6-14) L Blood Urea Nitrogen 16 mg/dL (7-20) Creatinine 1.2 mg/dL (0.6-1.0) H Estimated GFR (Cockcroft-Gault) 42.3 BUN/Creatinine Ratio 13 (6-20) Glucose Level 72 mg/dL (70-99) Calcium Level 7.8 mg/dL (8.5-10.1) L Total Bilirubin 0.2 mg/dL (0.2-1.0) Aspartate Amino Transferase (AST) 13 U/L (15-37) L Alanine Aminotransferase (ALT) 8 U/L (14-59) L Alkaline Phosphatase 65 U/L (46-116) Total Protein 5.0 g/dL (6.4-8.2) L Albumin 1.7 g/dL (3.4-5.0) L Albumin/Globulin Ratio 0.5 (1.0-1.7) L Current Medications: Meds: Current Medications Medications (Trade) Dose Ordered Sig/Daisy Route PRN Reason Start Time Stop Time Status Last Admin Dose Admin Potassium Chloride (Klor-Con) 20 meq BID PO 07/09/19 21:00 07/09/19 20:19 Furosemide (Lasix) 80 mg DAILY PO 07/09/19 11:30 07/09/19 11:51 I have reviewed the current psychotropics carefully including drug interactions. Risk benefit ratio favors no change other than as noted in my dictated progress note. Diagnosis: Problems: (1) Schizoaffective disorder, bipolar type (2) Bipolar 1 disorder, mixed, moderate (3) Anxiety disorder (4) Impulse control disorder ANDREA COY MD Jul 09, 2019 22:00
[2019-07-10] MEDS: ALBUTEROL SULFATE 8GM INHALER. INH PRN (05:15)
[2019-07-10 05:59] VITALS: BP 132/71
[2019-07-10 06:29] LABS: CALCIUM 7.9 mg/dL (8.5-10.1); CREATININE 1.2 mg/dL (0.6-1.0); GFR 42.3; POTASSIUM 3.2 mmol/L (3.5-5.1)
--- NOTE | 2019-07-10 08:40 | PDOC ---
Exam Note: Zachary Note: S/O: This note is a late entry for DOS 07/08/2019 covers elements not covered in my initial note. Treatment team meeting was done in the morning with Heather Walters, and Asha Leone along with Dulce Maria QUINONES and Hetal from [facility]. Discussed the patient with nursing staff, reviewed the chart. The patient was seen on audio-visual rounds in the evening with Noah QUINONES. Patients appetite is 50%. She slept 6-1/2 hours average, irritable at times. She has had some loose bowel movements, had MiraLax and we will hold this. She has been wheezy. Social service staff is arranging home health for her when she returns home. ROS: Ambulation impaired in wheelchair. Some diarrhea. No CV, , Pulmonary, Eye system symptoms on review. MSE: Reasonably oriented. Speech coherent has some latency, very fixated on bathroom arrangements at home and her is arranging this. Abstraction fair. Computation impaired. Mood and affect less labile. Language function intact. Attention span is short. Labs: Reviewed. 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 Anxiety disorder unspecified. Psychotic disorder unspecified. Plan: Continue psychotropics unchanged from initial note. Assessment: Vital Signs/I&O: Vital Signs Date Time Temp Pulse Resp B/P (MAP) Pulse Ox O2 Delivery O2 Flow Rate FiO2 07/10/19 05:59 97.6 98 20 132/71 (91) 95 07/08/19 15:37 Room Air I & O 07/09/19 07/09/19 07/10/19 15:00 23:00 07:00 Intake Total 840 ml 420 ml Balance 840 ml 420 ml Labs: Laboratory Tests Test 07/10/19 06:13 Sodium Level 142 mmol/L (136-145) Potassium Level 3.2 mmol/L (3.5-5.1) L Chloride Level 102 mmol/L (98-107) Carbon Dioxide Level 36 mmol/L (21-32) H Anion Gap 4 (6-14) L Blood Urea Nitrogen 17 mg/dL (7-20) Creatinine 1.2 mg/dL (0.6-1.0) H Estimated GFR (Cockcroft-Gault) 42.3 Glucose Level 79 mg/dL (70-99) Calcium Level 7.9 mg/dL (8.5-10.1) L Current Medications: Meds: Current Medications Medications (Trade) Dose Ordered Sig/Daisy Route PRN Reason Start Time Stop Time Status Last Admin Dose Admin Potassium Chloride (Klor-Con) 20 meq BID PO 07/09/19 21:00 07/10/19 08:06 DC 07/09/19 20:19 Furosemide (Lasix) 80 mg DAILY PO 07/09/19 11:30 07/09/19 11:51 I have reviewed the current psychotropics carefully including drug interactions. Risk benefit ratio favors no change other than as noted in my dictated progress note. Diagnosis: Problems: (1) Schizoaffective disorder, bipolar type (2) Bipolar 1 disorder, mixed, moderate (3) Anxiety disorder (4) Impulse control disorder ANDREA COY MD Jul 10, 2019 08:40
--- NOTE | 2019-07-10 08:56 | PDOC ---
Exam Note: Zachary Note: S/O: This note is a late entry for DOS 07/09/2019 covers elements not covered in my initial note. Discussed the patient with nursing staff, reviewed the chart. The patient was seen on audio-visual rounds in the evening with Gissell QUINONES. Nursing report was with Noah QUINONES. She is compliant with medications, some what medication seeking. She had telephone conversation with her . As I met with her during audio-visual rounds in the evening she was very animated, talking at length about how her is having the bathroom remodeled when she feels she will be able to handle things at home. ROS: Ambulation impaired in wheelchair. No CV, , Pulmonary, Eye system symptoms on review. MSE: Reasonably oriented. Speech coherent rapid at times. Abstraction fair. Computation impaired. Language function intact. Attention span is short. Labs: Reviewed. 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 Anxiety disorder unspec ified. Psychotic disorder unspecified. Plan: Continue psychotropics unchanged from initial note. Assessment: Vital Signs/I&O: Vital Signs Date Time Temp Pulse Resp B/P (MAP) Pulse Ox O2 Delivery O2 Flow Rate FiO2 07/10/19 05:59 97.6 98 20 132/71 (91) 95 07/08/19 15:37 Room Air I & O 0 07/09/19 07/09/19 07/10/19 15:00 23:00 07:00 Intake Total 840 ml 420 ml Balance 840 ml 420 ml Labs: Laboratory Tests Test 07/10/19 06:13 Sodium Level 142 mmol/L (136-145) Potassium Level 3.2 mmol/L (3.5-5.1) L Chloride Level 102 mmol/L (98-107) Carbon Dioxide Level 36 mmol/L (21-32) H Anion Gap 4 (6-14) L Blood Urea Nitrogen 17 mg/dL (7-20) Creatinine 1.2 mg/dL (0.6-1.0) H Estimated GFR (Cockcroft-Gault) 42.3 Glucose Level 79 mg/dL (70-99) Calcium Level 7.9 mg/dL (8.5-10.1) L Current Medications: Meds: Current Medications Medications (Trade) Dose Ordered Sig/Daisy Route PRN Reason Start Time Stop Time Status Last Admin Dose Admin Potassium Chloride (Klor-Con) 20 meq BID PO 07/09/19 21:00 07/10/19 08:06 DC 07/09/19 20:19 Furosemide (Lasix) 80 mg DAILY PO 07/09/19 11:30 07/09/19 11:51 I have reviewed the current psychotropics carefully including drug interactions. Risk benefit ratio favors no change other than as noted in my dictated progress note. Diagnosis: Problems: (1) Schizoaffective disorder, bipolar type (2) Bipolar 1 disorder, mixed, moderate (3) Anxiety disorder (4) Impulse control disorder ANDREA OCY MD Jul 10, 2019 08:56
[2019-07-10] MEDS: LACTOBACILLUS RHAMNOSUS GG 1 CAPSULE. PO SCH (09:02)
[2019-07-10] MEDS: DIVALPROEX 125 MG CAP.SPRINK PO SCH ×2 (09:02→19:30)
[2019-07-10] MEDS: IPRATROPIUM/ALBUTEROL 20/100mcg/INH INHALER. INH SCH ×4 (09:02→19:31)
[2019-07-10] MEDS: FUROSEMIDE 80 MG TABLET PO SCH (09:03)
[2019-07-10] MEDS: POLYETHYLENE GLYCOL 3350 17 GM PACKET. PO SCH (09:03)
[2019-07-10] MEDS: APIXABAN 2.5 MG TABLET PO SCH ×2 (09:03→19:30)
[2019-07-10] MEDS: POTASSIUM CHLORIDE 10 MEQ TABLET.ER. PO SCH ×2 (09:17→19:31)
--- NOTE | 2019-07-10 12:19 | PN ---
DATE: 07/10/2019 SUBJECTIVE: No new complaints. She is more comfortable as the leg swelling is less tense. OBJECTIVE FINDINGS: VITAL SIGNS: Today, her blood pressure is 132/71. She is afebrile. Oxygen saturation 95%. LUNGS: Clear. CARDIOVASCULAR: Showed regular heart tones. ABDOMEN: Soft. EXTREMITIES: Showed 4+ pitting edema, slightly improved from yesterday. It extends to all the way up both knees. LABORATORY STUDIES: Her creatinine today is the same at 1.2 mg percent. Her potassium is 3.2 mEq. ASSESSMENT: 1. Pedal edema. 2. Schizoaffective disorder. 3. Dementia. 4. Hypokalemia due to diuretics. RECOMMENDATIONS: 1. Continue Lasix 80 mg p.o. daily. 2. Continue daily weights. Her weight is down to 2 kilograms from the last record. 3. Potassium supplementation. I have increased her K-Dur to 30 mEq b.i.d. 4. Serial chemistries. 5. Daily weights. 6. Continue 1200 mL daily fluid restriction. Thank you again for asking me to see this patient. We shall follow closely along. KACEY RODRIGUEZ MD DR: RIMA/cheyenne JOB#: [id number] / [id number] ANDREA Bunn MD
[2019-07-10] MEDS: HYDROcodone/APAP 5/325MG 1 TAB TABLET PO PRN ×2 (15:18→19:31)
[2019-07-10 15:39] VITALS: BP 121/67
[2019-07-10] MEDS: ATORVASTATIN CALCIUM 10 MG TABLET. PO SCH (19:30)
[2019-07-10] MEDS: risperiDONE 0.5 MG TABLET. PO SCH (19:30)
[2019-07-10] MEDS: PATCH REMOVAL. MC SCH (19:31)
--- NOTE | 2019-07-10 22:01 | PDOC ---
Exam Note: Zachary Note: Please also refer to the separate dictated note~for this date of service dictated separately.~Patient seen individually. Discussed the patient with Nursing staff reviewed the chart.~Reviewed interim history and current functioning. Reviewed vital signs,~Labs/ Radiology~and current medications noted below. Continue current treatment with the changes noted in the dictated addendum note Assessment: Vital Signs/I&O: Vital Signs Date Time Temp Pulse Resp B/P (MAP) Pulse Ox O2 Delivery O2 Flow Rate FiO2 07/10/19 16:18 20 07/10/19 15:39 98.4 89 121/67 (85) 92 07/08/19 15:37 Room Air I & O 07/09/19 07/09/19 07/10/19 15:00 23:00 07:00 Intake Total 840 ml 420 ml Balance 840 ml 420 ml Labs: Laboratory Tests Test 07/10/19 06:13 Sodium Level 142 mmol/L (136-145) Potassium Level 3.2 mmol/L (3.5-5.1) L Chloride Level 102 mmol/L (98-107) Carbon Dioxide Level 36 mmol/L (21-32) H Anion Gap 4 (6-14) L Blood Urea Nitrogen 17 mg/dL (7-20) Creatinine 1.2 mg/dL (0.6-1.0) H Estimated GFR (Cockcroft-Gault) 42.3 Glucose Level 79 mg/dL (70-99) Calcium Level 7.9 mg/dL (8.5-10.1) L Current Medications: Meds: Current Medications Medications (Trade) Dose Ordered Sig/Daisy Route PRN Reason Start Time Stop Time Status Last Admin Dose Admin Potassium Chloride (Klor-Con) 30 meq BID PO 07/10/19 09:30 07/10/19 19:31 I have reviewed the current psychotropics carefully including drug interactions. Risk benefit ratio favors no change other than as noted in my dictated progress note. Diagnosis: Problems: (1) Schizoaffective disorder, bipolar type (2) Bipolar 1 disorder, mixed, moderate (3) Anxiety disorder (4) Impulse control disorder ANDREA COY MD Jul 10, 2019 22:01
[2019-07-11] MEDS: ALBUTEROL SULFATE 8GM INHALER. INH PRN (05:13)
[2019-07-11 05:43] VITALS: BP 113/63
[2019-07-11 06:43] LABS: CALCIUM 7.9 mg/dL (8.5-10.1); CREATININE 1.2 mg/dL (0.6-1.0); GFR 42.3; POTASSIUM 3.7 mmol/L (3.5-5.1)
[2019-07-11] MEDS: LACTOBACILLUS RHAMNOSUS GG 1 CAPSULE. PO SCH (07:59)
[2019-07-11] MEDS: DIVALPROEX 125 MG CAP.SPRINK PO SCH ×2 (07:59→19:47)
[2019-07-11] MEDS: APIXABAN 2.5 MG TABLET PO SCH ×2 (07:59→19:47)
[2019-07-11] MEDS: POTASSIUM CHLORIDE 10 MEQ TABLET.ER. PO SCH ×2 (08:00→19:47)
[2019-07-11] MEDS: IPRATROPIUM/ALBUTEROL 20/100mcg/INH INHALER. INH SCH ×4 (08:00→19:45)
[2019-07-11] MEDS: FUROSEMIDE 80 MG TABLET PO SCH (08:00)
[2019-07-11] MEDS: POLYETHYLENE GLYCOL 3350 17 GM PACKET. PO SCH (08:00)
[2019-07-11] MEDS ORDERED: POTASSIUM CHLORIDE 10 MEQ TABLET.ER. PO SCH (09:00)
--- NOTE | 2019-07-11 10:28 | PN ---
DATE: 07/11/2019 SUBJECTIVE: No new complaints. She is comfortable and has less discomfort and swelling of her ankle. OBJECTIVE FINDINGS: VITAL SIGNS: The patient is afebrile. Her blood pressure is 113/63, pulse is 90 and regular, oxygen saturation 95% on room air. HEENT: Head is without trauma. Pupils are reactive. Sclerae nonicteric. NECK: Supple. LUNGS: Clear. CARDIOVASCULAR: Showed regular heart tones. No gallops. ABDOMEN: Soft, nontender. EXTREMITIES: Showed still 4+ pitting edema, slightly improved and less edematous now below her knees. LABORATORY DATA: Her creatinine has stayed the same at 1.2 g/dL and potassium is up to 3.7 mEq per liter. ASSESSMENT: 1. Pedal edema, improved. 2. Schizoaffective disorder. 3. Dementia. 4. Hypokalemia, replaced. PLAN AND RECOMMENDATIONS: 1. Continue Lasix 80 mg p.o. daily. 2. Continue fluid restriction. We are down 4 kilograms since Friday and I have noticed that her serum creatinine has not changed a bit suggesting that the fluid we are immobilizing her third space and does not come from her intravascular compartment. 3. Potassium supplementation. 4. Serial chemistries. 5. Daily weights. 6. Continue 1200 mL daily fluid restriction. I still estimate another 10-15 pounds of third space fluid in her ankles. Thank you again for asking me to see the patient in consultation. We shall follow along closely with you. KACEY RODRIGUEZ MD DR: RIMA/cheyenne JOB#: [id number] / [id number]
[2019-07-11] MEDS: HYDROcodone/APAP 5/325MG 1 TAB TABLET PO PRN ×2 (13:37→19:48)
[2019-07-11 15:46] VITALS: BP 131/74
[2019-07-11] MEDS: risperiDONE 0.5 MG TABLET. PO SCH (19:47)
[2019-07-11] MEDS: ATORVASTATIN CALCIUM 10 MG TABLET. PO SCH (19:47)
[2019-07-11] MEDS: PATCH REMOVAL. MC SCH (19:48)
--- NOTE | 2019-07-11 21:51 | PDOC ---
Exam Note: Zachary Note: Please also refer to the separate dictated note~for this date of service dictated separately.~Patient seen individually. Discussed the patient with Nursing staff reviewed the chart.~Reviewed interim history and current functioning. Reviewed vital signs,~Labs/ Radiology~and current medications noted below. Continue current treatment with the changes noted in the dictated addendum note Assessment: Vital Signs/I&O: Vital Signs Date Time Temp Pulse Resp B/P (MAP) Pulse Ox O2 Delivery O2 Flow Rate FiO2 07/11/19 15:46 97.9 79 20 131/74 (93) 94 07/11/19 15:04 Room Air I & O 07/10/19 07/10/19 07/11/19 15:00 23:00 07:00 Intake Total 780 ml 340 ml Balance 780 ml 340 ml Labs: Laboratory Tests Test 07/11/19 06:17 Sodium Level 143 mmol/L (136-145) Potassium Level 3.7 mmol/L (3.5-5.1) Chloride Level 104 mmol/L (98-107) Carbon Dioxide Level 35 mmol/L (21-32) H Anion Gap 4 (6-14) L Blood Urea Nitrogen 16 mg/dL (7-20) Creatinine 1.2 mg/dL (0.6-1.0) H Estimated GFR (Cockcroft-Gault) 42.3 Glucose Level 72 mg/dL (70-99) Calcium Level 7.9 mg/dL (8.5-10.1) L Current Medications: I have reviewed the current psychotropics carefully including drug interactions. Risk benefit ratio favors no change other than as noted in my dictated progress note. Diagnosis: Problems: (1) Schizoaffective disorder, bipolar type (2) Bipolar 1 disorder, mixed, moderate (3) Anxiety disorder (4) Impulse control disorder ANDREA COY MD Jul 11, 2019 21:51
[2019-07-12] MEDS: ALBUTEROL SULFATE 8GM INHALER. INH PRN (03:00)
[2019-07-12 05:55] VITALS: BP 113/65
[2019-07-12 06:08] LABS: CALCIUM 8.3 mg/dL (8.5-10.1); CREATININE 1.2 mg/dL (0.6-1.0); GFR 42.3; POTASSIUM 4.3 mmol/L (3.5-5.1)
[2019-07-12] MEDS: IPRATROPIUM/ALBUTEROL 20/100mcg/INH INHALER. INH SCH ×4 (08:17→19:57)
[2019-07-12] MEDS: LACTOBACILLUS RHAMNOSUS GG 1 CAPSULE. PO SCH (08:17)
[2019-07-12] MEDS: POLYETHYLENE GLYCOL 3350 17 GM PACKET. PO SCH (08:17)
[2019-07-12] MEDS: DIVALPROEX 125 MG CAP.SPRINK PO SCH ×2 (08:18→19:56)
[2019-07-12] MEDS: APIXABAN 2.5 MG TABLET PO SCH ×2 (08:18→19:56)
[2019-07-12] MEDS: POTASSIUM CHLORIDE 10 MEQ TABLET.ER. PO SCH (08:18)
[2019-07-12] MEDS: FUROSEMIDE 80 MG TABLET PO SCH (08:18)
--- NOTE | 2019-07-12 08:47 | PDOC ---
Exam Note: Zachary Note: S/O: This note is a late entry for DOS 07/10/2019 covers elements not covered in my initial note. Discussed the patient with nursing staff, reviewed the chart. The patient was seen on audio-visual rounds in the evening with Linnette QUINONES. Nursing report was with Linnette QUINONES. Her potassium is low. We will defer to Dr. Rosales. She has been talking to her everyday and states he is moving everything to the ground floor including her bathroom and bedrooms to help with convenience once she gets home. ROS: Ambulation impaired in wheelchair. No CV, , Pulmonary, Eye system symptoms on review. MSE: Reasonably oriented. Speech coherent rapid at times. Abstraction fair. Computation impaired. Language function intact. Attention span is short. Labs: Reviewed. 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 Anxiety disorder unspecified. Psychotic disorder unspecified. Plan: Continue psychotropics unchanged from initial note. Assessment: Vital Signs/I&O: Vital Signs Date Time Temp Pulse Resp B/P (MAP) Pulse Ox O2 Delivery O2 Flow Rate FiO2 07/12/19 05:55 98.5 99 20 113/65 (81) 92 07/11/19 15:04 Room Air I & O 07/11/19 07/11/19 07/12/19 15:00 23:00 07:00 Intake Total 1170 ml 360 ml Balance 1170 ml 360 ml Labs: Laboratory Tests Test 07/12/19 05:50 Sodium Level 140 mmol/L (136-145) Potassium Level 4.3 mmol/L (3.5-5.1) Chloride Level 103 mmol/L (98-107) Carbon Dioxide Level 32 mmol/L (21-32) Anion Gap 5 (6-14) L Blood Urea Nitrogen 16 mg/dL (7-20) Creatinine 1.2 mg/dL (0.6-1.0) H Estimated GFR (Cockcroft-Gault) 42.3 Glucose Level 86 mg/dL (70-99) Calcium Level 8.3 mg/dL (8.5-10.1) L Current Medications: I have reviewed the current psychotropics carefully including drug interactions. Risk benefit ratio favors no change other than as noted in my dictated progress note. Diagnosis: Problems: (1) Schizoaffective disorder, bipolar type (2) Bipolar 1 disorder, mixed, moderate (3) Anxiety disorder (4) Impulse control disorder ANNELIESE,MAN M MD Jul 12, 2019 08:47
--- NOTE | 2019-07-12 08:58 | PDOC ---
Exam Note: Zachary Note: S/O: This note is a late entry for DOS 07/11/2019 covers elements not covered in my initial note. Discussed the patient with nursing staff, reviewed the chart. The patient was seen on audio-visual rounds in the evening with Gissell QUINONES. Nursing report was with Gissell QUINONES. She has been talking to her katelyn german and states he is moving everything to the ground floor including her bathroom and bedrooms to help with convenience once she gets home. ROS: Ambulation impaired in wheelchair. No CV, , Pulmonary, Eye system symptoms on review. MSE: Reasonably oriented. She has had some pain in her lower extremity, received Lortab. She is very verbal, animated, talking that she has been to her for 60 years and he is putting together her bedroom and bathroom on the ground floor and was quite animated about this, laughing, very appropriate, cognitively intact. Speech coherent rapid at times. Abstraction fair. Computation impaired. Language function intact. Attention span is short. No suicidal or homicidal ideation. Labs: Reviewed. 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 Anxiety disorder unspecified. Psychotic disorder unspecified. Plan: Continue psychotropics unchanged from initial note. Assessment: Vital Signs/I&O: Vital Signs Date Time Temp Pulse Resp B/P (MAP) Pulse Ox O2 Delivery O2 Flow Rate FiO2 07/12/19 05:55 98.5 99 20 113/65 (81) 92 07/11/19 15:04 Room Air I & O 07/11/19 07/11/19 07/12/19 15:00 23:00 07:00 Intake Total 1170 ml 360 ml Balance 1170 ml 360 ml Labs: Laboratory Tests Test 07/12/19 05:50 Sodium Level 140 mmol/L (136-145) Potassium Level 4.3 mmol/L (3.5-5.1) Chloride Level 103 mmol/L (98-107) Carbon Dioxide Level 32 mmol/L (21-32) Anion Gap 5 (6-14) L Blood Urea Nitrogen 16 mg/dL (7-20) Creatinine 1.2 mg/dL (0.6-1.0) H Estimated GFR (Cockcroft-Gault) 42.3 Glucose Level 86 mg/dL (70-99) Calcium Level 8.3 mg/dL (8.5-10.1) L Current Medications: I have reviewed the current psychotropics carefully including drug interactions. Risk benefit ratio favors no change other than as noted in my dictated progress note. Diagnosis: Problems: (1) Schizoaffective disorder, bipolar type (2) Bipolar 1 disorder, mixed, moderate (3) Anxiety disorder (4) Impulse control disorder ANDREA COY MD Jul 12, 2019 08:58
--- NOTE | 2019-07-12 10:40 | PN ---
DATE: 07/12/2019 SUBJECTIVE: The patient is calm. She has no complaints. The pressure on both ankles slightly better, although they are not completely resolved. OBJECTIVE FINDINGS: VITAL SIGNS: Today showed that her weight is down to 73.0 kilograms, down about 5 kilos since admission. Blood pressure is 113/65, temperature 98.5. HEENT: Head is without trauma. Pupils are reactive. Sclerae nonicteric. Oropharynx is clear. Respiratory rate normal. ABDOMEN: Soft. EXTREMITIES: Showed 3+ edema, less profound. There is still edema all the way up to her knees. LABORATORY STUDIES: Her creatinine today is identical to the last 3 days, it remains at 1.2 mg/dL, potassium is now replaced up to 4.3 mEq. The sodium is 140 mEq per liter. ASSESSMENT: 1. An 89-year-old female with pedal edema, improving. 2. Schizoaffective disorder, calm. 3. Dementia. 4. Hypokalemia, replace. RECOMMENDATIONS: 1. Continue with Lasix 80 mg p.o. daily. Because of her exam, she still has an estimated 10-15 pounds of third space fluid. Notice that we are diuresing her with net weight loss and yet her creatinine has stayed the same. 2. Continue fluid restriction. 3. We can decrease potassium supplementation. 4. Serial chemistries. 5. Daily weights. 6. Continue 1200 mL daily fluid restriction. Thank you again for asking me to see the patient. We will follow along closely. KACEY RODRIGUEZ MD DR: RIMA/cheyenne JOB#: [id number] / [id number]
[2019-07-12] MEDS: HYDROcodone/APAP 5/325MG 1 TAB TABLET PO PRN (15:37)
[2019-07-12 15:40] VITALS: BP 124/71
[2019-07-12] MEDS: risperiDONE 0.5 MG TABLET. PO SCH (19:56)
[2019-07-12] MEDS: PATCH REMOVAL. MC SCH (19:57)
[2019-07-12] MEDS: POTASSIUM CHLORIDE 20 MEQ TABLET.ER. PO SCH (19:57)
[2019-07-12] MEDS: ATORVASTATIN CALCIUM 10 MG TABLET. PO SCH (19:57)
--- NOTE | 2019-07-12 22:54 | PDOC ---
Exam Note: Zachary Note: S/O: This note covers elements not covered in my initial note. Discussed the patient with nursing staff, reviewed the chart. The patient was seen on audio- visual rounds in the evening with Noah QUINONES. Nursing report was with Linnette QUINONES. She slept 7-1/4 hours. ROS: Ambulation impaired in wheelchair. No CV, , Pulmonary, Eye system symptoms on review. She does complain of some lower extremity edema but states she is better and lost 9 pounds with the diuresis and fully cognizant of this. MSE: Reasonably oriented. The patient has been very pleasant, cooperative and appropriate on the unit. Speech coherent rapid. She is very verbal and animated, pleased that her was getting her bedroom and bathroom made on the ground floor which would make life easier for her at home. Abstraction fair. Computation impaired. Language function intact. Attention span is short. No suicidal or homicidal ideation. Labs: Reviewed. 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 Anxiety disorder unspecified. Psychotic disorder unspecified. Plan: Continue psychotropics unchanged from initial note. According to the [place] Department of Health and Environment and CDC, the patient has to remain in the hospital for another 7 days for her quarantine due to COVID-19 exposure on the unit. Assessment: Vital Signs/I&O: Vital Signs Date Time Temp Pulse Resp B/P (MAP) Pulse Ox O2 Delivery O2 Flow Rate FiO2 07/12/19 19:17 95 07/12/19 15:40 98.2 84 16 124/71 (88) 07/11/19 15:04 Room Air I & O 07/11/19 07/11/19 07/12/19 15:00 23:00 07:00 Intake Total 1170 ml 360 ml Balance 1170 ml 360 ml Labs: Laboratory Tests Test 07/12/19 05:50 Sodium Level 140 mmol/L (136-145) Potassium Level 4.3 mmol/L (3.5-5.1) Chloride Level 103 mmol/L (98-107) Carbon Dioxide Level 32 mmol/L (21-32) Anion Gap 5 (6-14) L Blood Urea Nitrogen 16 mg/dL (7-20) Creatinine 1.2 mg/dL (0.6-1.0) H Estimated GFR (Cockcroft-Gault) 42.3 Glucose Level 86 mg/dL (70-99) Calcium Level 8.3 mg/dL (8.5-10.1) L Current Medications: Meds: Current Medications Medications (Trade) Dose Ordered Sig/Daisy Route PRN Reason Start Time Stop Time Status Last Admin Dose Admin Potassium Chloride (Klor-Con) 20 meq BID PO 07/12/19 21:00 07/12/19 19:57 I have reviewed the current psychotropics carefully including drug interactions. Risk benefit ratio favors no change other than as noted in my dictated progress note. Diagnosis: Problems: (1) Schizoaffective disorder, bipolar type (2) Bipolar 1 disorder, mixed, moderate (3) Anxiety disorder (4) Impulse control disorder ANDREA COY MD Jul 12, 2019 22:54
[2019-07-13] MEDS: ALBUTEROL SULFATE 8GM INHALER. INH PRN ×4 (05:39→19:56)
[2019-07-13 05:58] VITALS: BP 135/77
[2019-07-13 06:01] LABS: CALCIUM 8.3 mg/dL (8.5-10.1); CREATININE 1.1 mg/dL (0.6-1.0); GFR 46.8
[2019-07-13] MEDS: IPRATROPIUM/ALBUTEROL 20/100mcg/INH INHALER. INH SCH ×4 (08:11→19:45)
[2019-07-13] MEDS: LACTOBACILLUS RHAMNOSUS GG 1 CAPSULE. PO SCH (08:12)
[2019-07-13] MEDS: POLYETHYLENE GLYCOL 3350 17 GM PACKET. PO SCH (08:12)
[2019-07-13] MEDS: APIXABAN 2.5 MG TABLET PO SCH ×2 (08:12→19:45)
[2019-07-13] MEDS: POTASSIUM CHLORIDE 20 MEQ TABLET.ER. PO SCH ×2 (08:12→19:44)
[2019-07-13] MEDS: DIVALPROEX 125 MG CAP.SPRINK PO SCH ×2 (08:13→19:45)
[2019-07-13] MEDS: FUROSEMIDE 80 MG TABLET PO SCH (08:13)
--- NOTE | 2019-07-13 11:31 | PN ---
DATE: 07/13/2019 SUBJECTIVE: Little bit dyspnea with exertion, otherwise comfortable. Weight is down. She is urinating quite a bit. OBJECTIVE FINDINGS: VITAL SIGNS: Today, her blood pressure is 135/77, temperature 98.1 degrees Fahrenheit, oxygen saturation 92% on room air, pulse is regular. HEENT: Normal. No icterus. NECK: Supple. LUNGS: Clear. CARDIOVASCULAR: Showed regular heart tones. No gallops or murmurs. Peripheral pulses are palpable and full. ABDOMEN: Soft, scaphoid. EXTREMITIES: Showed significant improvement in edema. The skin is not as angry. I can see her lateral and medial malleoli today. There is still 2+ edema extending senior care up her lower extremities. LABORATORY DATA: Potassium is 4.0 mEq and creatinine paradoxically is down to 1.1 mg/dL. ASSESSMENT: An 89-year-old female with: 1. Pedal edema, slowly improving. 2. Schizoaffective disorder, calm. 3. Underlying dementia. 4. Hypokalemia, replaced. RECOMMENDATIONS: 1. Continue Lasix 80 mg daily. I estimated another 10 pounds of third space fluid. 2. Continue fluid restriction. 3. Potassium supplementation. 4. Basic chemistry. 5. Daily weights. 6. Continue 1200 mL daily fluid restriction. Thank you again for asking me to see the patient. We should gladly follow along closely. KACEY RODRIGUEZ MD DR: RIMA/che[place]enne JOB#: [id number] / [id number]
[2019-07-13] MEDS: HYDROcodone/APAP 5/325MG 1 TAB TABLET PO PRN ×2 (12:07→19:44)
[2019-07-13] MEDS ORDERED: APIX2.5T PO (15:14)
[2019-07-13] MEDS ORDERED: DIVA125C2 PO (15:15)
[2019-07-13] MEDS ORDERED: FURO80TA72 PO (15:16)
[2019-07-13] MEDS ORDERED: HYDR-2759 PO (15:17)
[2019-07-13] MEDS ORDERED: MINE454C9 TP (15:19)
[2019-07-13] MEDS ORDERED: ONDA4TAB12 PO (15:20)
[2019-07-13] MEDS ORDERED: POTA20TA4 PO (15:23)
[2019-07-13] MEDS ORDERED: RISP0.5T3 PO (15:24)
[2019-07-13 15:38] VITALS: BP 123/78
[2019-07-13] MEDS: LIDOCAINE (700MG/PATCH) PATCH. TD PRN (19:44)
[2019-07-13] MEDS: risperiDONE 0.5 MG TABLET. PO SCH (19:45)
[2019-07-13] MEDS: ATORVASTATIN CALCIUM 10 MG TABLET. PO SCH (19:45)
[2019-07-13] MEDS: PATCH REMOVAL. MC SCH (19:46)
[2019-07-13] MEDS: MINERAL OIL/PETROLATUM TOPICAL CREAM 113GM JAR. TP SCH (21:00)
--- NOTE | 2019-07-13 22:35 | PDOC ---
Exam Note: Zachary Note: S/O: This note covers elements not covered in my initial note. Discussed the patient with nursing staff, reviewed the chart. The patient was seen on audio- visual rounds in the evening with Noah QUINONES. Nursing report was with Dulce Maria QUINONES. She slept 7-3/4 hours, somewhat attention seeking, anxious. She is wanting me to look at her lower extremity edema which is better. She has not talked to her but looking forward to him making arrangements for her bathroom and bedroom to be remodeled before she returns home next week. ROS: Ambulation impaired in wheelchair. No CV, , Pulmonary, Eye system symptoms on review. MSE: Reasonably oriented. The patient has been very pleasant, cooperative and appropriate on the unit. Speech coherent rapid. She is very verbal and animated, pleased that her was getting her bedroom and bathroom made on the ground floor which would make life easier for her at home. Abstraction fair. Computation impaired. Language function intact. Attention span is short. No suicidal or homicidal ideation. Labs: Reviewed. 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 Anxiety disorder unspecified. Psychotic disorder unspecified. Plan: Continue psychotropics unchanged from initial note. Assessment: Vital Signs/I&O: Vital Signs Date Time Temp Pulse Resp B/P (MAP) Pulse Ox O2 Delivery O2 Flow Rate FiO2 07/13/19 19:44 98 07/13/19 15:38 97.7 85 16 123/78 (93) Room Air I & O 07/12/19 07/12/19 07/13/19 15:00 23:00 07:00 Intake Total 760 ml 240 ml Balance 760 ml 240 ml Labs: Laboratory Tests Test 07/13/19 05:47 Sodium Level 140 mmol/L (136-145) Potassium Level 4.0 mmol/L (3.5-5.1) Chloride Level 102 mmol/L (98-107) Carbon Dioxide Level 33 mmol/L (21-32) H Anion Gap 5 (6-14) L Blood Urea Nitrogen 16 mg/dL (7-20) Creatinine 1.1 mg/dL (0.6-1.0) H Estimated GFR (Cockcroft-Gault) 46.8 Glucose Level 89 mg/dL (70-99) Calcium Level 8.3 mg/dL (8.5-10.1) L Current Medications: I have reviewed the current psychotropics carefully including drug interactions. Risk benefit ratio favors no change other than as noted in my dictated progress note. Diagnosis: Problems: (1) Schizoaffective disorder, bipolar type (2) Bipolar 1 disorder, mixed, moderate (3) Anxiety disorder (4) Impulse control disorder ANDREA COY MD Jul 13, 2019 22:35
[2019-07-14] MEDS: HYDROcodone/APAP 5/325MG 1 TAB TABLET PO PRN ×4 (00:01→18:42)
[2019-07-14] MEDS: ALBUTEROL SULFATE 8GM INHALER. INH PRN ×4 (03:05→17:39)
[2019-07-14 06:16] VITALS: BP 104/59
[2019-07-14 06:35] LABS: CREATININE 1.2 mg/dL (0.6-1.0); GFR 42.3; POTASSIUM 3.7 mmol/L (3.5-5.1)
[2019-07-14] MEDS: POLYETHYLENE GLYCOL 3350 17 GM PACKET. PO SCH (09:03)
[2019-07-14] MEDS: IPRATROPIUM/ALBUTEROL 20/100mcg/INH INHALER. INH SCH ×4 (09:04→20:27)
[2019-07-14] MEDS: APIXABAN 2.5 MG TABLET PO SCH ×2 (09:04→20:27)
[2019-07-14] MEDS: POTASSIUM CHLORIDE 20 MEQ TABLET.ER. PO SCH ×2 (09:04→20:27)
[2019-07-14] MEDS: FUROSEMIDE 80 MG TABLET PO SCH (09:04)
[2019-07-14] MEDS: DIVALPROEX 125 MG CAP.SPRINK PO SCH ×2 (09:04→20:27)
[2019-07-14] MEDS: LACTOBACILLUS RHAMNOSUS GG 1 CAPSULE. PO SCH (09:04)
[2019-07-14] MEDS: MINERAL OIL/PETROLATUM TOPICAL CREAM 113GM JAR. TP SCH ×2 (09:12→20:26)
[2019-07-14 15:49] VITALS: BP 127/61
[2019-07-14] MEDS: PATCH REMOVAL. MC SCH (20:24)
[2019-07-14] MEDS: ATORVASTATIN CALCIUM 10 MG TABLET. PO SCH (20:27)
[2019-07-14] MEDS: risperiDONE 0.5 MG TABLET. PO SCH (20:27)
--- NOTE | 2019-07-14 21:46 | PDOC ---
Exam Note: Zachary Note: Please also refer to the separate dictated note~for this date of service dictated separately.~Patient seen individually. Discussed the patient with Nursing staff reviewed the chart.~Reviewed interim history and current functioning. Reviewed vital signs,~Labs/ Radiology~and current medications noted below. Continue current treatment with the changes noted in the dictated addendum note Assessment: Vital Signs/I&O: Vital Signs Date Time Temp Pulse Resp B/P (MAP) Pulse Ox O2 Delivery O2 Flow Rate FiO2 07/14/19 20:23 20 Room Air 07/14/19 15:49 98.2 74 127/61 (83) 98 I & O 07/13/19 07/13/19 07/14/19 15:00 23:00 07:00 Intake Total 490 ml 100 ml Balance 490 ml 100 ml Labs: Laboratory Tests Test 07/14/19 06:12 Sodium Level 142 mmol/L (136-145) Potassium Level 3.7 mmol/L (3.5-5.1) Chloride Level 104 mmol/L (98-107) Carbon Dioxide Level 34 mmol/L (21-32) H Anion Gap 4 (6-14) L Blood Urea Nitrogen 18 mg/dL (7-20) Creatinine 1.2 mg/dL (0.6-1.0) H Estimated GFR (Cockcroft-Gault) 42.3 Glucose Level 80 mg/dL (70-99) Calcium Level 8.0 mg/dL (8.5-10.1) L Current Medications: I have reviewed the current psychotropics carefully including drug interactions. Risk benefit ratio favors no change other than as noted in my dictated progress note. Diagnosis: Problems: (1) Schizoaffective disorder, bipolar type (2) Bipolar 1 disorder, mixed, moderate (3) Anxiety disorder (4) Impulse control disorder ANDREA COY MD Jul 14, 2019 21:46
[2019-07-15 05:36] VITALS: BP 112/67
[2019-07-15] MEDS: ALBUTEROL SULFATE 8GM INHALER. INH PRN ×4 (06:00→23:01)
[2019-07-15 06:03] LABS: CALCIUM 7.8 mg/dL (8.5-10.1); CREATININE 1.2 mg/dL (0.6-1.0); GFR 42.3; POTASSIUM 3.8 mmol/L (3.5-5.1)
[2019-07-15] MEDS: POLYETHYLENE GLYCOL 3350 17 GM PACKET. PO SCH (09:01)
[2019-07-15] MEDS: POTASSIUM CHLORIDE 20 MEQ TABLET.ER. PO SCH ×2 (09:01→20:25)
[2019-07-15] MEDS: LACTOBACILLUS RHAMNOSUS GG 1 CAPSULE. PO SCH (09:01)
[2019-07-15] MEDS: IPRATROPIUM/ALBUTEROL 20/100mcg/INH INHALER. INH SCH ×4 (09:01→20:25)
[2019-07-15] MEDS: MINERAL OIL/PETROLATUM TOPICAL CREAM 113GM JAR. TP SCH ×2 (09:02→20:26)
[2019-07-15] MEDS: FUROSEMIDE 80 MG TABLET PO SCH (09:02)
[2019-07-15] MEDS: DIVALPROEX 125 MG CAP.SPRINK PO SCH ×2 (09:02→20:23)
[2019-07-15] MEDS: APIXABAN 2.5 MG TABLET PO SCH ×2 (09:02→20:25)
[2019-07-15] MEDS: HYDROcodone/APAP 5/325MG 1 TAB TABLET PO PRN ×2 (09:04→17:47)
[2019-07-15] MEDS: PATCH REMOVAL. MC SCH (09:04)
--- NOTE | 2019-07-15 10:31 | PDOC ---
Exam Note: Zachary Note: S/O: This note is a late entry for DOS 07/14/19 covers elements not covered in my initial note. Discussed the patient with nursing staff, reviewed the chart. The patient was seen on audio-visual rounds in the evening with Noah QUINONES. Nursing report was with Dulce Maria QUINONES. She slept 7-3/4 hours previous night. She still complains of some pain, takes her pain medications, doing better. She was quite animated, verbal during the individual visit. ROS: Ambulation impaired in wheelchair. No CV, GI/, Pulmonary, Eye system symptoms on review. Positive for pedal edema. MSE: Reasonably oriented. Speech coherent, quite animated. She talked about her remodeling her bathroom and bedroom for her and she is appreciative of this. Again talking about having been to him for 60 years. Abstraction fair. Computation impaired. Language function intact. Attention span is short. No suicidal or homicidal ideation. Labs: Reviewed. 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 Anxiety disorder unspecified. Psychotic disorder unspecified. Plan: Continue psychotropics unchanged from initial note. Assessment: Vital Signs/I&O: Vital Signs Date Time Temp Pulse Resp B/P (MAP) Pulse Ox O2 Delivery O2 Flow Rate FiO2 07/15/19 05:36 98.4 87 22 112/67 (82) 93 07/14/19 20:23 Room Air I & O 07/14/19 07/14/19 07/15/19 15:00 23:00 07:00 Intake Total 750 ml 350 ml Balance 750 ml 350 ml Labs: Laboratory Tests Test 07/15/19 05:46 Sodium Level 141 mmol/L (136-145) Potassium Level 3.8 mmol/L (3.5-5.1) Chloride Level 104 mmol/L (98-107) Carbon Dioxide Level 33 mmol/L (21-32) H Anion Gap 4 (6-14) L Blood Urea Nitrogen 17 mg/dL (7-20) Creatinine 1.2 mg/dL (0.6-1.0) H Estimated GFR (Cockcroft-Gault) 42.3 Glucose Level 79 mg/dL (70-99) Calcium Level 7.8 mg/dL (8.5-10.1) L Current Medications: I have reviewed the current psychotropics carefully including drug interactions. Risk benefit ratio favors no change other than as noted in my dictated progress note. Diagnosis: Problems: (1) Schizoaffective disorder, bipolar type (2) Bipolar 1 disorder, mixed, moderate (3) Anxiety disorder (4) Impulse control disorder ANDREA COY MD Jul 15, 2019 10:30
[2019-07-15 15:43] VITALS: BP 129/76
--- NOTE | 2019-07-15 16:48 | TX PLAN ---
Interdisciplinary Tx Plan Admission Information Jun 04, 2019 at 16:03 Legal Status (on Admission): Voluntary DPOA/Guardian Name: Dequan Concepcion Contact Verified Code Status: DNR Allergies: Coded Allergies: prednisone (Verified Allergy, Intermediate, 03/20/16) Sulfa (Sulfonamide Antibiotics) (Verified Allergy, Unknown, 06/04/19) budesonide (Verified Allergy, Unknown, 06/04/19) procaine (Verified Allergy, Unknown, 06/04/19) Estimated Length of Stay: 14 Diagnoses Primary Diagnosis: Bipolar I D/O, probable mixed with psychotic features, Anxiety D/O (unspecified), Impulsive Control D/O Reasons for Admission: Delusions, Agitated, Confusion/Disoriented, Poor impulse control Problem in Patient's Words: Pt believes that pt is purposely putting on a front to cover up her forgetfulness. Problems Active Problems: According to the intake, pt is refusing medications, agitated (worse at HS), insomnia, stopped taking meds believing it was poison, aggressive towards staff, trying to leave the house, paranoid Inactive Problems: Pt. is compliant with medication and cooperative with cares. Pt Strengths/Limitations Ability for [place]: Poor Cognitive Functioning/Ability: Poor Communication Skills/Ability: Poor Financial Resources: Fair Insight/Judgement: Poor Intellectual Ability: Poor Physical Health: Poor Social Skills: Fair Stability in Family: Good Stability in School/Work: Poor Verbal Skills: Fair Discharge Criteria Discharge Criteria: Able meet basic life need, No need for close observ., Able to meet health needs, OP monitor medical prob, Adequate arrangements @DC, Verbal commit aftercare, Adequate self-care, Verbal commit med comply, Improved behavior, Improved mood/thought Preliminary Discharge Plan Preliminary DC Plan: Current Living Arrange. Special Precautions Special Precautions: Agitation/Assault Fall Risk: Moderate Initial D/C Plan Per pt , he wants pt to return home with him and have services. Identified Discharge Needs: Community services and services for continued psychiatric follow-up. Follow Up with PCP Currently Utilized Resources Currently Utilized Resources/P: PCP Referrals Community Resources: Psychiatry, community support for behavioral health nursing Identified Problems/Hx/Goals Objectives/Short-Term Goals Short Term Goals: Dec. Hallucination/Delus, Dec. 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 Education: [employer] school Community Follow-up Follow Up with PCP Treatment Plan Explained Patient/Track Manager had this treatment plan explained to him/her as indicated by the signature below and has been given the opportunity to ask questions and make suggestions: Date: Patient/Track Manager Signature: Status Update Update Pt is eating up to 50% of meals and sleeping on average 7.5 hours per night. Pt is medication compliant but does portray to be helpless with tasks and needs encouragement to complete them as she has been prior to admission. Pt does yell out for her inhaler and is on a fluid restriction as she has Edema in her right LE. Pt will plan to discharge home with her and have services set up with [facility]. Pt is asking for a w/c for the house and put in a new bathroom on the first floor to make cares easier for pt. Pt to discharge home on Friday07/19/2019. will follow up with pt and ensure all plans are finalized. KENDALL COLIN Jul 15, 2019 16:48
[2019-07-15] MEDS: ATORVASTATIN CALCIUM 10 MG TABLET. PO SCH (20:22)
[2019-07-15] MEDS: risperiDONE 0.5 MG TABLET. PO SCH (20:22)
--- NOTE | 2019-07-15 22:01 | PDOC ---
Exam Note: Zachary Note: Please also refer to the separate dictated note~for this date of service dictated separately.~Patient seen individually. Discussed the patient with Nursing staff reviewed the chart.~Reviewed interim history and current functioning. Reviewed vital signs,~Labs/ Radiology~and current medications noted below. Continue current treatment with the changes noted in the dictated addendum note Assessment: Vital Signs/I&O: Vital Signs Date Time Temp Pulse Resp B/P (MAP) Pulse Ox O2 Delivery O2 Flow Rate FiO2 07/15/19 20:26 20 Room Air 07/15/19 15:43 97.9 86 129/76 (93) 96 I & O 07/14/19 07/14/19 07/15/19 15:00 23:00 07:00 Intake Total 750 ml 350 ml Balance 750 ml 350 ml Labs: Laboratory Tests Test 07/15/19 05:46 Sodium Level 141 mmol/L (136-145) Potassium Level 3.8 mmol/L (3.5-5.1) Chloride Level 104 mmol/L (98-107) Carbon Dioxide Level 33 mmol/L (21-32) H Anion Gap 4 (6-14) L Blood Urea Nitrogen 17 mg/dL (7-20) Creatinine 1.2 mg/dL (0.6-1.0) H Estimated GFR (Cockcroft-Gault) 42.3 Glucose Level 79 mg/dL (70-99) Calcium Level 7.8 mg/dL (8.5-10.1) L Current Medications: I have reviewed the current psychotropics carefully including drug interactions. Risk benefit ratio favors no change other than as noted in my dictated progress note. Diagnosis: Problems: (1) Schizoaffective disorder, bipolar type (2) Bipolar 1 disorder, mixed, moderate (3) Anxiety disorder (4) Impulse control disorder ANDREA COY MD Jul 15, 2019 22:01
[2019-07-16] MEDS: ALBUTEROL SULFATE 8GM INHALER. INH PRN ×2 (05:57→20:58)
[2019-07-16 06:21] VITALS: BP 139/68
[2019-07-16] MEDS: POTASSIUM CHLORIDE 20 MEQ TABLET.ER. PO SCH ×2 (07:46→19:51)
[2019-07-16] MEDS: DIVALPROEX 125 MG CAP.SPRINK PO SCH ×2 (07:46→19:51)
[2019-07-16] MEDS: APIXABAN 2.5 MG TABLET PO SCH ×2 (07:46→19:51)
[2019-07-16] MEDS: IPRATROPIUM/ALBUTEROL 20/100mcg/INH INHALER. INH SCH ×4 (07:46→19:50)
[2019-07-16] MEDS: POLYETHYLENE GLYCOL 3350 17 GM PACKET. PO SCH (07:46)
[2019-07-16] MEDS: FUROSEMIDE 80 MG TABLET PO SCH (07:47)
[2019-07-16] MEDS: LACTOBACILLUS RHAMNOSUS GG 1 CAPSULE. PO SCH (07:47)
[2019-07-16] MEDS: MINERAL OIL/PETROLATUM TOPICAL CREAM 113GM JAR. TP SCH ×2 (07:48→19:50)
--- NOTE | 2019-07-16 09:40 | PDOC ---
Exam Note: Zachary Note: S/O: This note is a late entry for DOS 07/15/19 covers elements not covered in my initial note. Treatment team meeting was done in the morning with Asha Leone (social media senior associate) and Dulce Maria QUINONES. Reviewed the patients progress, disposition plans, current psychotropics, discussed potential side-effects and drug interactions. The patient was seen on audio-visual rounds in the evening due to the COVID-19 exposure on the unit with Elsa QUINONES. She slept 7 hours previous night, yells out, anxious at times. Appetite is 50%. Nevertheless, overall she is better. Psychotic symptoms appear to have subsided significantly. ROS: Ambulation impaired in wheelchair. No CV, GI/, Pulmonary, Eye system symptoms on review. Does complain of pedal edema. Defer to Dr. Abdi. MSE: Alert and oriented. Speech coherent. Abstraction fair. Computation somewhat impaired. Language function intact. Attention span is short. Mood and affect improved. During the individual visit we talked about her transitioning home with her and that she should push herself to do ADLs, as at times per nursing report she seems helpless to do these here on the unit but when pushed is able to do much more than she can initially. She was accepting of this. No suicidal or homicidal ideation. Labs: Reviewed. 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 Anxiety disorder unspecified. Psychotic disorder unspecified. Plan: The patient will be discharged next Friday. Assessment: Vital Signs/I&O: Vital Signs Date Time Temp Pulse Resp B/P (MAP) Pulse Ox O2 Delivery O2 Flow Rate FiO2 07/16/19 06:21 98.1 93 20 139/68 (91) 91 07/15/19 20:26 Room Air I & O 07/15/19 07/15/19 07/16/19 15:00 23:00 07:00 Intake Total 720 ml 240 ml Balance 720 ml 240 ml Current Medications: I have reviewed the current psychotropics carefully including drug interactions. Risk benefit ratio favors no change other than as noted in my dictated progress note. Diagnosis: Problems: (1) Schizoaffective disorder, bipolar type (2) Bipolar 1 disorder, mixed, moderate (3) Anxiety disorder (4) Impulse control disorder ANDREA COY MD Jul 16, 2019 09:40
[2019-07-16 15:42] VITALS: BP 131/59
[2019-07-16] MEDS: HYDROcodone/APAP 5/325MG 1 TAB TABLET PO PRN (16:53)
[2019-07-16] MEDS: ATORVASTATIN CALCIUM 10 MG TABLET. PO SCH (19:51)
[2019-07-16] MEDS: risperiDONE 0.5 MG TABLET. PO SCH (19:51)
[2019-07-16] MEDS: PATCH REMOVAL. MC SCH (19:51)
--- NOTE | 2019-07-16 21:54 | PDOC ---
Exam Note: Zachary Note: Please also refer to the separate dictated note~for this date of service dictated separately.~Patient seen individually. Discussed the patient with Nursing staff reviewed the chart.~Reviewed interim history and current functioning. Reviewed vital signs,~Labs/ Radiology~and current medications noted below. Continue current treatment with the changes noted in the dictated addendum note Assessment: Vital Signs/I&O: Vital Signs Date Time Temp Pulse Resp B/P (MAP) Pulse Ox O2 Delivery O2 Flow Rate FiO2 07/16/19 15:42 97.9 90 18 131/59 (83) 95 07/15/19 20:26 Room Air I & O 07/15/19 07/15/19 07/16/19 15:00 23:00 07:00 Intake Total 720 ml 240 ml Balance 720 ml 240 ml Current Medications: I have reviewed the current psychotropics carefully including drug interactions. Risk benefit ratio favors no change other than as noted in my dictated progress note. Diagnosis: Problems: (1) Schizoaffective disorder, bipolar type (2) Bipolar 1 disorder, mixed, moderate (3) Anxiety disorder (4) Impulse control disorder ANDREA COY MD Jul 16, 2019 21:54
[2019-07-17] MEDS: HYDROcodone/APAP 5/325MG 1 TAB TABLET PO PRN ×3 (05:50→20:00)
[2019-07-17] MEDS: ALBUTEROL SULFATE 8GM INHALER. INH PRN (05:51)
[2019-07-17 06:16] VITALS: BP 157/70
[2019-07-17] MEDS: POLYETHYLENE GLYCOL 3350 17 GM PACKET. PO SCH (07:46)
[2019-07-17] MEDS: POTASSIUM CHLORIDE 20 MEQ TABLET.ER. PO SCH ×2 (07:46→20:00)
[2019-07-17] MEDS: FUROSEMIDE 80 MG TABLET PO SCH (07:46)
[2019-07-17] MEDS: APIXABAN 2.5 MG TABLET PO SCH ×2 (07:46→20:00)
[2019-07-17] MEDS: LACTOBACILLUS RHAMNOSUS GG 1 CAPSULE. PO SCH (07:46)
[2019-07-17] MEDS: DIVALPROEX 125 MG CAP.SPRINK PO SCH ×2 (07:46→20:01)
[2019-07-17] MEDS: IPRATROPIUM/ALBUTEROL 20/100mcg/INH INHALER. INH SCH ×4 (07:47→20:01)
[2019-07-17] MEDS: MINERAL OIL/PETROLATUM TOPICAL CREAM 113GM JAR. TP SCH ×2 (07:47→19:59)
[2019-07-17 07:53] LABS: BASO % 1 % (0-3); EOS # 0.6 x10^3/uL (0.0-0.7); EOS % 9 % (0-3); HEMATOCRIT 31.4 % (36.0-47.0); HEMOGLOBIN 10.3 g/dL (12.0-15.5); LYMPH # 1.6 x10^3/uL (1.0-4.8); LYMPH % 25 % (24-48); MEAN CORPUSCULAR HEMOGLOBIN 32 pg (25-35); MEAN CORPUSCULAR HGB CONC 33 g/dL (31-37); MEAN CORPUSCULAR VOLUME 99 fL (79-100); MONO # 1.1 x10^3/uL (0.0-1.1); MONO % 17 % (0-9); NEUT # 3.2 x10^3uL (1.8-7.7); NEUT % 48 % (31-73); PLATELET COUNT 121 x10^3/uL (140-400); RED BLOOD COUNT 3.19 x10^6/uL (3.50-5.40); RED CELL DISTRIBUTION WIDTH 15.8 % (11.5-14.5); WHITE BLOOD COUNT 6.6 x10^3/uL (4.0-11.0)
[2019-07-17 08:35] LABS: ALBUMIN 1.9 g/dL (3.4-5.0); ALBUMIN/GLOBULIN RATIO 0.6 (1.0-1.7); CREATININE 1.2 mg/dL (0.6-1.0); GFR 42.3; POTASSIUM 3.3 mmol/L (3.5-5.1); TOTAL BILIRUBIN 0.2 mg/dL (0.2-1.0); TOTAL PROTEIN 5.3 g/dL (6.4-8.2)
[2019-07-17 09:46] LABS: % EOS 14 % (0-5); % LYMPHS 18 % (24-48); % MONOS 12 % (0-10); % SEGS 56 % (35-66)
[2019-07-17 09:47] LABS: PLT ESTIMATE DECREASED (ADEQUATE)
[2019-07-17 15:34] VITALS: BP 133/62
[2019-07-17] MEDS: risperiDONE 0.5 MG TABLET. PO SCH (20:00)
[2019-07-17] MEDS: ATORVASTATIN CALCIUM 10 MG TABLET. PO SCH (20:01)
[2019-07-17] MEDS: PATCH REMOVAL. MC SCH (20:25)
--- NOTE | 2019-07-17 22:48 | PDOC ---
Exam Note: Zachary Note: S/O: This note is a late entry for DOS 07/16/2019 covers elements not covered in my initial note. The patient was seen on audio-visual rounds in the evening with Gissell RN. Discussed the patient with nursing staff reviewed the chart. Nursing report with Gissell QUINONES. Overall the patient has been doing reasonably well. She has conversed with her Prem and is pleased that Prem is following through with making a bathroom and bedroom for her downstairs next to the garage. ROS: Ambulation impaired in wheelchair. No CV, GI/, Pulmonary, Eye system symptoms on review. Does complain of pedal edema. MSE: Alert and oriented. Speech coherent. Abstraction fair. Computation somewhat impaired. Language function intact. Attention span is short. Mood and affect improved. No suicidal or homicidal ideation. Labs: Reviewed. 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 Anxiety disorder unspecified. Psychotic disorder unspecified. Plan: Continue psychotropics unchanged. Assessment: Vital Signs/I&O: Vital Signs Date Time Temp Pulse Resp B/P (MAP) Pulse Ox O2 Delivery O2 Flow Rate FiO2 07/17/19 20:00 Room Air 07/17/19 15:34 98.3 94 20 133/62 (85) 96 I & O 07/16/19 07/16/19 07/17/19 15:00 23:00 07:00 Intake Total 480 ml 480 ml Balance 480 ml 480 ml Labs: Laboratory Tests Test 07/17/19 07:30 White Blood Count 6.6 x10^3/uL (4.0-11.0) Red Blood Count 3.19 x10^6/uL (3.50-5.40) L Hemoglobin 10.3 g/dL (12.0-15.5) L Hematocrit 31.4 % (36.0-47.0) L Mean Corpuscular Volume 99 fL (79-100) Mean Corpuscular Hemoglobin 32 pg (25-35) Mean Corpuscular Hemoglobin Concent 33 g/dL (31-37) Red Cell Distribution Width 15.8 % (11.5-14.5) H Platelet Count 121 x10^3/uL (140-400) L Neutrophils (%) (Auto) 48 % (31-73) Lymphocytes (%) (Auto) 25 % (24-48) Monocytes (%) (Auto) 17 % (0-9) H Eosinophils (%) (Auto) 9 % (0-3) H Basophils (%) (Auto) 1 % (0-3) Neutrophils # (Auto) 3.2 x10^3uL (1.8-7.7) Lymphocytes # (Auto) 1.6 x10^3/uL (1.0-4.8) Monocytes # (Auto) 1.1 x10^3/uL (0.0-1.1) Eosinophils # (Auto) 0.6 x10^3/uL (0.0-0.7) Basophils # (Auto) 0.0 x10^3/uL (0.0-0.2) Segmented Neutrophils % 56 % (35-66) Lymphocytes % 18 % (24-48) L Monocytes % 12 % (0-10) H Eosinophils % 14 % (0-5) H Platelet Estimate Decreased (ADEQUATE) Sodium Level 141 mmol/L (136-145) Potassium Level 3.3 mmol/L (3.5-5.1) L Chloride Level 104 mmol/L (98-107) Carbon Dioxide Level 33 mmol/L (21-32) H Anion Gap 4 (6-14) L Blood Urea Nitrogen 15 mg/dL (7-20) Creatinine 1.2 mg/dL (0.6-1.0) H Estimated GFR (Cockcroft-Gault) 42.3 BUN/Creatinine Ratio 13 (6-20) Glucose Level 86 mg/dL (70-99) Calcium Level 8.0 mg/dL (8.5-10.1) L Total Bilirubin 0.2 mg/dL (0.2-1.0) Aspartate Amino Transferase (AST) 11 U/L (15-37) L Alanine Aminotransferase (ALT) 9 U/L (14-59) L Alkaline Phosphatase 65 U/L (46-116) Total Protein 5.3 g/dL (6.4-8.2) L Albumin 1.9 g/dL (3.4-5.0) L Albumin/Globulin Ratio 0.6 (1.0-1.7) L Current Medications: I have reviewed the current psychotropics carefully including drug interactions. Risk benefit ratio favors no change other than as noted in my dictated progress note. Diagnosis: Problems: (1) Schizoaffective disorder, bipolar type (2) Bipolar 1 disorder, mixed, moderate (3) Anxiety disorder (4) Impulse control disorder ANDREA COY MD Jul 17, 2019 22:48
--- NOTE | 2019-07-17 22:48 | PDOC ---
Exam Note: Zachary Note: Please also refer to the separate dictated note~for this date of service dictated separately.~Patient seen individually. Discussed the patient with Nursing staff reviewed the chart.~Reviewed interim history and current functioning. Reviewed vital signs,~Labs/ Radiology~and current medications noted below. Continue current treatment with the changes noted in the dictated addendum note Assessment: Vital Signs/I&O: Vital Signs Date Time Temp Pulse Resp B/P (MAP) Pulse Ox O2 Delivery O2 Flow Rate FiO2 07/17/19 20:00 Room Air 07/17/19 15:34 98.3 94 20 133/62 (85) 96 I & O 07/16/19 07/16/19 07/17/19 15:00 23:00 07:00 Intake Total 480 ml 480 ml Balance 480 ml 480 ml Labs: Laboratory Tests Test 07/17/19 07:30 White Blood Count 6.6 x10^3/uL (4.0-11.0) Red Blood Count 3.19 x10^6/uL (3.50-5.40) L Hemoglobin 10.3 g/dL (12.0-15.5) L Hematocrit 31.4 % (36.0-47.0) L Mean Corpuscular Volume 99 fL (79-100) Mean Corpuscular Hemoglobin 32 pg (25-35) Mean Corpuscular Hemoglobin Concent 33 g/dL (31-37) Red Cell Distribution Width 15.8 % (11.5-14.5) H Platelet Count 121 x10^3/uL (140-400) L Neutrophils (%) (Auto) 48 % (31-73) Lymphocytes (%) (Auto) 25 % (24-48) Monocytes (%) (Auto) 17 % (0-9) H Eosinophils (%) (Auto) 9 % (0-3) H Basophils (%) (Auto) 1 % (0-3) Neutrophils # (Auto) 3.2 x10^3uL (1.8-7.7) Lymphocytes # (Auto) 1.6 x10^3/uL (1.0-4.8) Monocytes # (Auto) 1.1 x10^3/uL (0.0-1.1) Eosinophils # (Auto) 0.6 x10^3/uL (0.0-0.7) Basophils # (Auto) 0.0 x10^3/uL (0.0-0.2) Segmented Neutrophils % 56 % (35-66) Lymphocytes % 18 % (24-48) L Monocytes % 12 % (0-10) H Eosinophils % 14 % (0-5) H Platelet Estimate Decreased (ADEQUATE) Sodium Level 141 mmol/L (136-145) Potassium Level 3.3 mmol/L (3.5-5.1) L Chloride Level 104 mmol/L (98-107) Carbon Dioxide Level 33 mmol/L (21-32) H Anion Gap 4 (6-14) L Blood Urea Nitrogen 15 mg/dL (7-20) Creatinine 1.2 mg/dL (0.6-1.0) H Estimated GFR (Cockcroft-Gault) 42.3 BUN/Creatinine Ratio 13 (6-20) Glucose Level 86 mg/dL (70-99) Calcium Level 8.0 mg/dL (8.5-10.1) L Total Bilirubin 0.2 mg/dL (0.2-1.0) Aspartate Amino Transferase (AST) 11 U/L (15-37) L Alanine Aminotransferase (ALT) 9 U/L (14-59) L Alkaline Phosphatase 65 U/L (46-116) Total Protein 5.3 g/dL (6.4-8.2) L Albumin 1.9 g/dL (3.4-5.0) L Albumin/Globulin Ratio 0.6 (1.0-1.7) L Current Medications: I have reviewed the current psychotropics carefully including drug interactions. Risk benefit ratio favors no change other than as noted in my dictated progress note. Diagnosis: Problems: (1) Schizoaffective disorder, bipolar type (2) Bipolar 1 disorder, mixed, moderate (3) Anxiety disorder (4) Impulse control disorder ANDREA COY MD Jul 17, 2019 22:48
[2019-07-18] MEDS: ACETAMINOPHEN 500 MG TABLET PO PRN (05:38)
[2019-07-18] MEDS: ALBUTEROL SULFATE 8GM INHALER. INH PRN ×2 (05:41→19:42)
[2019-07-18 06:00] VITALS: BP 120/82
[2019-07-18] MEDS: DIVALPROEX 125 MG CAP.SPRINK PO SCH ×2 (07:11→19:43)
[2019-07-18] MEDS: IPRATROPIUM/ALBUTEROL 20/100mcg/INH INHALER. INH SCH ×4 (07:11→19:45)
[2019-07-18] MEDS: MINERAL OIL/PETROLATUM TOPICAL CREAM 113GM JAR. TP SCH ×2 (07:11→19:46)
[2019-07-18] MEDS: POLYETHYLENE GLYCOL 3350 17 GM PACKET. PO SCH (07:11)
[2019-07-18] MEDS: FUROSEMIDE 80 MG TABLET PO SCH (07:12)
[2019-07-18] MEDS: LACTOBACILLUS RHAMNOSUS GG 1 CAPSULE. PO SCH (07:13)
[2019-07-18] MEDS: APIXABAN 2.5 MG TABLET PO SCH ×2 (07:13→19:44)
[2019-07-18] MEDS: POTASSIUM CHLORIDE 20 MEQ TABLET.ER. PO SCH ×2 (07:13→19:45)
[2019-07-18] MEDS: HYDROcodone/APAP 5/325MG 1 TAB TABLET PO PRN ×3 (07:16→19:47)
[2019-07-18 16:24] VITALS: BP 138/79
[2019-07-18] MEDS: risperiDONE 0.5 MG TABLET. PO SCH (19:44)
[2019-07-18] MEDS: ATORVASTATIN CALCIUM 10 MG TABLET. PO SCH (19:44)
[2019-07-18] MEDS: PATCH REMOVAL. MC SCH (19:46)
--- NOTE | 2019-07-18 22:47 | PDOC ---
Exam Note: Zachary Note: S/O: This note is a late entry for DOS 07/17/19 covers elements not covered in my initial note. The patient was seen on audio-visual rounds in the evening with Linnette QUINONES. Discussed the patient with nursing staff reviewed the chart. Nursing report with Gissell QUINONES. The patient sat outside for one hour in the a fternoon. ROS: Ambulation impaired in wheelchair. No CV, GI/, Pulmonary, Eye system symptoms on review. MSE: Patient is reasonably oriented. Speech coherent, very animated. Abstraction fair. Computation somewhat impaired. Language function intact. Mood and affect improved. No suicidal or homicidal ideation. We talked at some length about discharge home with her who is remodeling the home to make it appropriate for her return. Patient is quite verbal about this. Labs: Reviewed. 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 Anxiety disorder unspecified. Psychotic disorder unspecified. Plan: Continue psychotropics unchanged. Assessment: Vital Signs/I&O: Vital Signs Date Time Temp Pulse Resp B/P (MAP) Pulse Ox O2 Delivery O2 Flow Rate FiO2 07/18/19 16:24 97.7 89 20 138/79 (98) 97 07/17/19 21:00 Room Air I & O 07/17/19 07/17/19 07/18/19 15:00 23:00 07:00 Intake Total 360 ml 480 ml Balance 360 ml 480 ml Current Medications: I have reviewed the current psychotropics carefully including drug interactions. Risk benefit ratio favors no change other than as noted in my dictated progress note. Diagnosis: Problems: (1) Schizoaffective disorder, bipolar type (2) Bipolar 1 disorder, mixed, moderate (3) Anxiety disorder (4) Impulse control disorder ANDREA COY MD Jul 18, 2019 22:47
--- NOTE | 2019-07-18 22:48 | PDOC ---
Exam Note: Zachary Note: S/O: This note of 07/18/2019 covers elements not covered in my initial note. The patient was seen on audio-visual rounds in the evening with Ericka QUINONES. Discussed the patient with nursing staff reviewed the chart. Nursing report with Radha QUINONES. Overall the patient has been doing reasonably well. ROS: Ambulation impaired in wheelchair. No CV, GI/, Pulmonary, Eye system symptoms on review. Does complain of pedal edema. MSE: Alert and oriented. Speech coherent. Abstraction fair. Computation somewhat impaired. Language function intact. Attention span is short. Mood and affect improved. No suicidal or homicidal ideation. The patient state her has had the toilet, bathroom rodriguez, tiles rest of the bathroom done according to her and she is very specific about her needs and appreciative of her husbands efforts. Labs: Reviewed. 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 Anxiety disorder unspecified. Psychotic disorder unspecified. Plan: Continue psychotropics unchanged. Assessment: Vital Signs/I&O: Vital Signs Date Time Temp Pulse Resp B/P (MAP) Pulse Ox O2 Delivery O2 Flow Rate FiO2 07/18/19 16:24 97.7 89 20 138/79 (98) 97 07/17/19 21:00 Room Air I & O 07/17/19 07/17/19 07/18/19 15:00 23:00 07:00 Intake Total 360 ml 480 ml Balance 360 ml 480 ml Current Medications: I have reviewed the current psychotropics carefully including drug interactions. Risk benefit ratio favors no change other than as noted in my dictated progress note. Diagnosis: Problems: (1) Schizoaffective disorder, bipolar type (2) Bipolar 1 disorder, mixed, moderate (3) Anxiety disorder (4) Impulse control disorder ANDREA COY MD Jul 18, 2019 22:48
[2019-07-19] MEDS: ALBUTEROL SULFATE 8GM INHALER. INH PRN ×2 (06:06→08:31)
[2019-07-19 06:16] VITALS: BP 118/71
[2019-07-19] MEDS: POTASSIUM CHLORIDE 20 MEQ TABLET.ER. PO SCH (08:29)
[2019-07-19] MEDS: IPRATROPIUM/ALBUTEROL 20/100mcg/INH INHALER. INH SCH (08:29)
[2019-07-19] MEDS: LACTOBACILLUS RHAMNOSUS GG 1 CAPSULE. PO SCH (08:29)
[2019-07-19] MEDS: POLYETHYLENE GLYCOL 3350 17 GM PACKET. PO SCH (08:30)
[2019-07-19] MEDS: DIVALPROEX 125 MG CAP.SPRINK PO SCH (08:30)
[2019-07-19] MEDS: FUROSEMIDE 80 MG TABLET PO SCH (08:30)
[2019-07-19] MEDS: APIXABAN 2.5 MG TABLET PO SCH (08:30)
[2019-07-19] MEDS: MINERAL OIL/PETROLATUM TOPICAL CREAM 113GM JAR. TP SCH (08:31)
--- NOTE | 2019-07-19 22:37 | PDOC ---
Exam Note: Zachary Note: Please also refer to the separate dictated note~for this date of service dictated separately.~Patient seen individually. Discussed the patient with Nursing staff reviewed the chart.~Reviewed interim history and current functioning. Reviewed vital signs,~Labs/ Radiology~and current medications noted below. Continue current treatment with the changes noted in the dictated addendum note Assessment: Vital Signs/I&O: Vital Signs Date Time Temp Pulse Resp B/P (MAP) Pulse Ox O2 Delivery O2 Flow Rate FiO2 07/19/19 06:16 97.7 91 20 118/71 (87) 97 07/17/19 21:00 Room Air I & O 07/18/19 07/18/19 07/19/19 15:00 23:00 07:00 Intake Total 600 ml 320 ml 120 ml Balance 600 ml 320 ml 120 ml Current Medications: I have reviewed the current psychotropics carefully including drug interactions. Risk benefit ratio favors no change other than as noted in my dictated progress note. Diagnosis: Problems: (1) Schizoaffective disorder, bipolar type (2) Bipolar 1 disorder, mixed, moderate (3) Anxiety disorder (4) Impulse control disorder ANDREA COY MD Jul 19, 2019 22:37
--- NOTE | 2019-07-20 22:28 | DS ---
DATE OF DISCHARGE: 07/19/2019 DISCHARGE SUMMARY/PSYCHIATRIC PROGRESS NOTE This late entry 07/19/2019 covers the elements not covered in my initial note of 07/19/2019. REASON FOR ADMISSION: Please refer to the admission history for details. Briefly, the patient is an 89-year-old female referred to us from [facility] after she was medically stabilized following admission from home. From a psychiatric standpoint, she has a diagnosis of bipolar disorder, had appeared extremely grandiose, paranoid, psychotic, agitated. She believed her was poisoning her. She was aggressive towards her spouse. 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 She had failed outpatient psychiatric interventions. Behaviors were deemed dangerous, unmanageable resulting in this referral. SIGNIFICANT FINDINGS AND CLINICAL COURSE: Following admission, the patient was seen daily individually by myself from a psychiatric standpoint, medical followup per Dr. Abdi/Dr. Rosales. The patient was extremely psychotic, paranoid, delusional. Multiple changes were made in her psychotropics and she finally seemed to respond to a combination of Depakote 250 mg a.m. and 500 at bedtime with a therapeutic valproic acid level of 56. Risperdal was increased gradually to 0.75 mg at bedtime. Prior to discharge, was reduced down to 0.5 mg at bedtime and over time as an outpatient could be further reduced and ultimately discontinued. She responded very well to changes in her psychotropics. CONDITION AT DISCHARGE: Improved. REVIEW OF SYSTEMS: Prior to discharge on 07/19/2019, ambulation impaired. No CV, , pulmonary, eye system symptoms on review, does complain of pedal edema. MENTAL STATUS EXAM: Reasonably oriented. Speech coherent, abstraction fair, computation impaired, language function intact. Mood and affect improved. Her had remodeled part of the home to accommodate her returning back there. FINAL DIAGNOSES: Bipolar 1 disorder, mixed with psychotic features, in partial remission; anxiety disorder, unspecified. Rest unchanged from admission. DISCHARGE MEDICATIONS: Please refer to the MRAD. DISCHARGE INSTRUCTIONS: Outpatient psychiatric and medical followup as arranged prior to discharge. Time for discharge day management greater than 30 minutes. ANDREA COY MD DR: ODALIS/[place]enne JOB#: [id number] / [id number]
== END 2019-07-19 10:55 | disposition home health service (06) | DRG 885 ==
LOC: GEROPSY 16:03
PROVIDERS: ADMIT Psychiatry & Neurology Psychiatry; ATTEND Psychiatry & Neurology Psychiatry
DX: F25.0 Schizoaffective disorder, bipolar type (principal); E43 Unspecified severe protein-calorie malnutrition; N39.0 Urinary tract infection, site not specified; E78.5 Hyperlipidemia, unspecified; E87.6 Hypokalemia; E87.70 Fluid overload, unspecified; F03.90 Unspecified dementia, unspecified severity, without behavioral disturbance, psychotic disturbance, mood disturbance, and anxiety; F41.9 Anxiety disorder, unspecified; I12.9 Hypertensive chronic kidney disease with stage 1 through stage 4 chronic kidney disease, or unspecified chronic kidney disease; N18.9 Chronic kidney disease, unspecified; T50.2X5A Adverse effect of carbonic-anhydrase inhibitors, benzothiadiazides and other diuretics, initial encounter; Y92.89 Other specified places as the place of occurrence of the external cause; Z79.899 Other long term (current) drug therapy; Z90.710 Acquired absence of both cervix and uterus; Z88.2 Allergy status to sulfonamides; Z88.8 Allergy status to other drugs, medicaments and biological substances; F63.9 Impulse disorder, unspecified; Z20.828 Contact with and (suspected) exposure to other viral communicable diseases; Z68.27 Body mass index [BMI] 27.0-27.9, adult
CPT/HCPCS: 36415; 71045; 80048; 80053; 80061; 80164; 81001; 82140; 82306; 82607; 83036; 83540; 83550; 83605; 83735; 83880; 84436; 84443; 84480; 85007; 85025; 85027; 86592; 87070; 87086; 87186; 87635; 87804; 87880; 93005; 94640; J7613; Q0162; 97110; 97530; 97535